=== PATIENT | female | born 1955 | race Caucasian/White ===

== ENCOUNTER 2020-09-30 09:18 | Emergency (ER) | payer MEDICARE, OTHER ==
[2020-09-30] MEDS ORDERED: diphenhydrAMINE 50 MG/ML 1 ML VIAL IVP STA (09:35)
[2020-09-30] MEDS ORDERED: METOCLOPRAMIDE 5 MG/ML 2 ML VIAL IVP STA (09:35)
[2020-09-30] MEDS ORDERED: HYDROmorphone 0.5 MG/0.5 ML SYRINGE IVP STA (09:35)
[2020-09-30] MEDS ORDERED: SODIUM CHLORIDE 0.9% 500 ML 500 ML IV STA (09:35)
[2020-09-30] MEDS ORDERED: SODIUM CHLORIDE 0.9% 1,000 ML IV STA (09:35)
[2020-09-30] MEDS ORDERED: FAMOTIDINE 20 MG/2 ML VIAL IV STA (09:36)
[2020-09-30 10:01] LABS: Basophils # (A) 0.1 k/uL (0-0.2); Basophils % (A) 1 %; Eosinophils # (A) 0.1 k/uL (0-0.7); Eosinophils % (A) 1 %; HGB 18.5 gm/dL (11.4-16.0); Lymphocytes # (A) 1.2 k/uL (1.0-4.8); Lymphocytes % (A) 14 %; MCH 31.5 pg (25.0-35.0); MCV 95.7 fL (80.0-100.0); Mean Platelet Volume 10.1; Monocytes # (A) 0.2 k/uL (0-1.0); Monocytes % (A) 2 %; Neutrophils # (A) 7.2 k/uL (1.3-7.7); Neutrophils % (A) 82 %; Platelet Count 187 k/uL (150-450); RBC 5.88 m/uL (3.80-5.40); RDW 13.9 % (11.5-15.5); WBC 8.8 k/uL (3.8-10.6)
[2020-09-30 10:06] LABS: HCT 56.2 % (34.0-46.0)
[2020-09-30 10:07] LABS: ALT 24 U/L (4-34); AST 29 U/L (14-36); African American GFR (CKD) >90 (>60 ml/min/1.73 sqM); Albumin 4.7 g/dL (3.5-5.0); Alkaline Phosphatase 75 U/L (38-126); Amylase 57 U/L (30-110); Anion Gap 10 mmol/L; Blood Urea Nitrogen 10 mg/dL (7-17); Calcium 9.7 mg/dL (8.4-10.2); Carbon Dioxide 23 mmol/L (22-30); Chloride 107 mmol/L (98-107); Glucose 147 mg/dL (74-99); Lipase 92 U/L (23-300); Non-African American GFR(CKD) >90 (>60 ml/min/1.73 sqM); Potassium 4.5 mmol/L (3.5-5.1); Sodium 140 mmol/L (137-145); Total Bilirubin 0.7 mg/dL (0.2-1.3); Total Protein 8.2 g/dL (6.3-8.2)
--- NOTE | 2020-09-30 11:08 | ED ---
Nausea/Vomiting/Diarrhea HPI - General Chief complaint: Nausea/Vomiting/Diarrhea Stated complaint: Vomiting/SOB/Adb pain Time Seen by Provider: 09/30/20 09:27 Source: patient, RN notes reviewed Mode of arrival: wheelchair Limitations: no limitations - History of Present Illness Initial comments: This a 64-year-old female presents emergency Department chief complaint abdominal pain, nausea vomiting. Patient states that she started vomiting throughout the night. Patient has this recurrent and states that she's had multiple evaluations including several CAT scans yearly, EGDs. Patient states that she's been diagnosed with gastritis she takes omeprazole and Carafate. She states occasionally does accept she has come emergency department. Denies any diarrhea constipation she has epigastric pain no chest pain she states she has chronic shortness of breath secondary to COPD, heavy smoking but does not have any increasing symptoms. No headache no dizziness. Patient has a back pain. - Related Data Home Medications Medication Instructions Recorded Confirmed Albuterol Sulfate [Ventolin HFA] 1 - 2 puff INHALATION RT-Q6H PRN 09/30/20 09/30/20 Digoxin 250 mcg PO DAILY 09/30/20 09/30/20 Ipratropium/Albuterol Sulfate 1 puff INHALATION RT-QID 09/30/20 09/30/20 [Combivent Respimat Inhaler] Mirtazapine [Remeron] 30 mg PO DAILY 09/30/20 09/30/20 Pantoprazole Sodium [Protonix] 40 mg PO DAILY 09/30/20 09/30/20 Rosuvastatin [Crestor] 20 mg PO DAILY 09/30/20 09/30/20 busPIRone HCl [Buspar] 10 mg PO TID 09/30/20 09/30/20 Previous Rx's Medication Instructions Recorded Ondansetron Odt [Zofran Odt] 4 mg PO Q8HR PRN #10 tab 09/30/20 Pantoprazole [Protonix] 40 mg PO DAILY #14 tablet. 09/30/20 Sucralfate [Carafate] 1 gm PO BID #28 tablet 09/30/20 Allergies Allergy/AdvReac Type Severity Reaction Status Date / Time amoxicillin [From Augmentin] Allergy Unknown Verified 09/30/20 10:18 clavulanic acid Allergy Unknown Verified 09/30/20 10:18 [From Augmentin] codeine Allergy Unknown Verified 09/30/20 10:18 Tetracyclines Allergy Unknown Verified 09/30/20 10:18 Review of Systems ROS Statement: Those systems with pertinent positive or pertinent negative responses have been documented in the HPI. ROS Other: All systems not noted in ROS Statement are negative. Past Medical History Past Medical History: Atrial Fibrillation, COPD History of Any Multi-Drug Resistant Organisms: None Reported Past Psychological History: No Psychological Hx Reported Smoking Status: Former smoker Past Alcohol Use History: None Reported Past Drug Use History: None Reported General Exam Limitations: no limitations General appearance: alert, in no apparent distress Head exam: Present: atraumatic, normocephalic, normal inspection Eye exam: Present: normal appearance, PERRL, EOMI. Absent: scleral icterus, conjunctival injection, periorbital swelling ENT exam: Present: normal exam, normal oropharynx, mucous membranes moist Neck exam: Present: normal inspection, full ROM. Absent: tenderness, meningismus, lymphadenopathy Respiratory exam: Present: normal lung sounds bilaterally. Absent: respiratory distress, wheezes, rales, rhonchi, stridor Cardiovascular Exam: Present: regular rate, normal rhythm, normal heart sounds. Absent: systolic murmur, diastolic murmur, rubs, gallop, clicks GI/Abdominal exam: Present: soft, tenderness (Moderate epigastric), normal bowel sounds. Absent: distended, guarding, rebound, rigid Back exam: Absent: CVA tenderness (R), CVA tenderness (L) Neurological exam: Present: alert, oriented X3 Skin exam: Present: warm, dry, intact, normal color. Absent: rash Course Vital Signs 09/30/20 09/30/20 09/30/20 09:21 11:15 11:57 Temperature 98.1 F 98.3 F Pulse Rate 66 68 72 Respiratory 20 18 18 Rate Blood Pressure 207/90 191/115 199/96 O2 Sat by Pulse 95 96 95 Oximetry 09/30/20 12:21 Temperature Pulse Rate 70 Respiratory 18 Rate Blood Pressure 190/100 O2 Sat by Pulse 95 Oximetry - Reevaluation(s) Reevaluation #1: 09/30/20 11:10 Patient reevaluated resting comfortably, nausea has improved she states she still has some mild stomach burning. Medical Decision Making - Medical Decision Making Patient reevaluated updated and results patient was sleeping in the room upon arrival. Patient states her nausea is improved. She has minimal abdominal d iscomfort which is nontender to palpation. Patient's labs reviewed no significant abnormality. Patient was well hydrated and given antiemetics. Patient has chronic stomach and gastritis issues. Patient discharged in stable condition return parameters were discussed. - Lab Data Result diagrams: 09/30/20 09:39 09/30/20 09:39 Lab Results 09/30/20 09/30/20 09/30/20 Range/Units 09:39 09:39 09:39 WBC 8.8 (3.8-10.6) k/uL RBC 5.88 H (3.80-5.40) m/uL Hgb 18.5 H (11.4-16.0) gm/dL Hct 56.2 H (34.0-46.0) % MCV 95.7 (80.0-100.0) fL MCH 31.5 (25.0-35.0) pg MCHC 33.0 (31.0-37.0) g/dL RDW 13.9 (11.5-15.5) % Plt Count 187 (150-450) k/uL MPV 10.1 Neutrophils % 82 % Lymphocytes % 14 % Monocytes % 2 % Eosinophils % 1 % Basophils % 1 % Neutrophils # 7.2 (1.3-7.7) k/uL Lymphocytes # 1.2 (1.0-4.8) k/uL Monocytes # 0.2 (0-1.0) k/uL Eosinophils # 0.1 (0-0.7) k/uL Basophils # 0.1 (0-0.2) k/uL Sodium 140 (137-145) mmol/L Potassium 4.5 (3.5-5.1) mmol/L Chloride 107 (98-107) mmol/L Carbon Dioxide 23 (22-30) mmol/L Anion Gap 10 mmol/L BUN 10 (7-17) mg/dL Creatinine 0.62 (0.52-1.04) mg/dL Est GFR (CKD-EPI)AfAm >90 (>60 ml/min/1.73 sqM) Est GFR (CKD-EPI)NonAf >90 (>60 ml/min/1.73 sqM) Glucose 147 H (74-99) mg/dL Plasma Lactic Acid Lalo 2.4 H* (0.7-2.0) mmol/L Calcium 9.7 (8.4-10.2) mg/dL Total Bilirubin 0.7 (0.2-1.3) mg/dL AST 29 (14-36) U/L ALT 24 (4-34) U/L Alkaline Phosphatase 75 (38-126) U/L Troponin I (0.000-0.034) ng/mL Total Protein 8.2 (6.3-8.2) g/dL Albumin 4.7 (3.5-5.0) g/dL Amylase 57 (30-110) U/L Lipase 92 (23-300) U/L 09/30/20 Range/Units 09:39 WBC (3.8-10.6) k/uL RBC (3.80-5.40) m/uL Hgb (11.4-16.0) gm/dL Hct (34.0-46.0) % MCV (80.0-100.0) fL MCH (25.0-35.0) pg MCHC (31.0-37.0) g/dL RDW (11.5-15.5) % Plt Count (150-450) k/uL MPV Neutrophils % % Lymphocytes % % Monocytes % % Eosinophils % % Basophils % % Neutrophils # (1.3-7.7) k/uL Lymphocytes # (1.0-4.8) k/uL Monocytes # (0-1.0) k/uL Eosinophils # (0-0.7) k/uL Basophils # (0-0.2) k/uL Sodium (137-145) mmol/L Potassium (3.5-5.1) mmol/L Chloride (98-107) mmol/L Carbon Dioxide (22-30) mmol/L Anion Gap mmol/L BUN (7-17) mg/dL Creatinine (0.52-1.04) mg/dL Est GFR (CKD-EPI)AfAm (>60 ml/min/1.73 sqM) Est GFR (CKD-EPI)NonAf (>60 ml/min/1.73 sqM) Glucose (74-99) mg/dL Plasma Lactic Acid Lalo (0.7-2.0) mmol/L Calcium (8.4-10.2) mg/dL Total Bilirubin (0.2-1.3) mg/dL AST (14-36) U/L ALT (4-34) U/L Alkaline Phosphatase (38-126) U/L Troponin I <0.012 (0.000-0.034) ng/mL Total Protein (6.3-8.2) g/dL Albumin (3.5-5.0) g/dL Amylase (30-110) U/L Lipase (23-300) U/L Disposition Clinical Impression: Abdominal pain, Nausea & vomiting Disposition: HOME SELF-CARE Condition: Stable Instructions (If sedation given, give patient instructions): Acute Nausea and Vomiting (ED) Additional Instructions: Please return to the Emergency Department if symptoms worsen or any other concerns. Prescriptions: Sucralfate [Carafate] 1 gm PO BID #28 tablet Pantoprazole [Protonix] 40 mg PO DAILY #14 tablet. Ondansetron Odt [Zofran Odt] 4 mg PO Q8HR PRN #10 tab PRN Reason: Nausea Is patient prescribed a controlled substance at d/c from ED?: No Referrals: Nonstaff,Physician [Primary Care Provider] - 1-2 days Time of Disposition: 12:34
[2020-09-30] MEDS ORDERED: MAG HYDROX/AL HYDROX/SIMETH 30 ML, HYOSCYAMINE ELIXIR 10 ML PO STA ×2 (11:10)
[2020-09-30 11:18] VITALS: RESP 18; TEMP 98.3
[2020-09-30] MEDS ORDERED: SODIUM CHLORIDE 0.9% 500 ML 500 ML IV ONE (12:11)
[2020-09-30] MEDS ORDERED: ONDANSETRON 4 MG/2 ML VIAL IVP STA (12:11)
[2020-09-30] MEDS ORDERED: hydrALAZINE HCL 20 MG/ML 1 ML VIAL IVP STA (12:11)
[2020-09-30 12:39] VITALS: BP 144/100; PULSE 80
== END 2020-09-30 12:38 | disposition home or self-care (01) ==
LOC: EC 09:18
DX: R11.2 Nausea with vomiting, unspecified (principal); R10.9 Unspecified abdominal pain; J44.9 Chronic obstructive pulmonary disease, unspecified; I48.91 Unspecified atrial fibrillation; Z79.51 Long term (current) use of inhaled steroids; Z79.899 Other long term (current) drug therapy; Z87.891 Personal history of nicotine dependence; Z88.0 Allergy status to penicillin; Z88.1 Allergy status to other antibiotic agents; Z88.5 Allergy status to narcotic agent
CPT/HCPCS: 93005; 80053; 82150; 83605; 83690; 84484; 85025; 99284; 96374; 96375 ×5; 96361 ×3; J0360; J1200; J2765; J2405; J1170

== ENCOUNTER 2021-09-05 14:17 | Inpatient (IN) | payer MEDICARE, OTHER ==
[2021-09-05] MEDS ORDERED: IPRATROPIUM-ALBUTEROL 3 ML NEB INHALATION STA (15:15)
[2021-09-05] MEDS ORDERED: methylPREDNISolone SOD SUCCI 125 MG/2 ML VIAL IV STA (15:15)
[2021-09-05] MEDS ORDERED: MORPHINE SULFATE 4 MG/ML SYRINGE IVP STA (15:16)
--- NOTE | 2021-09-05 15:17 | ED ---
SOB HPI - General Chief Complaint: Shortness of Breath Stated Complaint: CINDY Time Seen by Provider: 09/05/21 15:07 Source: patient Mode of arrival: wheelchair Limitations: no limitations - History of Present Illness Initial Comments: 65-year-old female test with history of COPD not on home O2, A. fib presents to the emergency room with reported shortness of breath. States has been getting worse over the past 2 days. States she does not live in the area. She lives with her son and any time she comes to visit she thinks a temperature change exacerbates her breathing. She has been using her nebulizer and inhaler as directed without any improvement in her symptoms. Admits that she has "lung pain". Patient denies a history of coronary disease or congestive heart failure. No lower extremity edema. No history of DVT or PE. No calf pain or swelling. Denies fevers. Does admit to a chronic cough which has not been any worse. Patient is not vaccinated against Covid. Denies any known exposures. Does not see a wedding planning internship. Normally is seen in the emergency department for times per year to receive antibiotics and steroids. She has never been on life support. No other alleviating, precipitating modifying factors - Related Data Home Medications Medication Instructions Recorded Confirmed Albuterol Sulfate [Ventolin HFA] 1 - 2 puff INHALATION RT-Q6H PRN 09/30/20 09/30/20 Digoxin 250 mcg PO DAILY 09/30/20 09/30/20 Ipratropium/Albuterol Sulfate 1 puff INHALATION RT-QID 09/30/20 09/30/20 [Combivent Respimat Inhaler] Mirtazapine [Remeron] 30 mg PO DAILY 09/30/20 09/30/20 Pantoprazole Sodium [Protonix] 40 mg PO DAILY 09/30/20 09/30/20 Rosuvastatin [Crestor] 20 mg PO DAILY 09/30/20 09/30/20 busPIRone HCl [Buspar] 10 mg PO TID 09/30/20 09/30/20 Previous Rx's Medication Instructions Recorded Ondansetron Odt [Zofran Odt] 4 mg PO Q8HR PRN #10 tab 09/30/20 Pantoprazole [Protonix] 40 mg PO DAILY #14 tablet 09/30/20 Sucralfate [Carafate] 1 gm PO BID #28 tablet 09/30/20 Allergies Allergy/AdvReac Type Severity Reaction Status Date / Time amoxicillin [From Augmentin] Allergy Unknown Verified 09/05/21 14:56 clavulanic acid Allergy Unknown Verified 09/05/21 14:56 [From Augmentin] codeine Allergy Unknown Verified 09/05/21 14:56 Tetracyclines Allergy Unknown Verified 09/05/21 14:56 Review of Systems ROS Statement: Those systems with pertinent positive or pertinent negative responses have been documented in the HPI. ROS Other: All systems not noted in ROS Statement are negative. Past Medical History Past Medical History: Atrial Fibrillation, COPD History of Any Multi-Drug Resistant Organisms: None Reported Past Surgical History: Ablation Past Psychological History: No Psychological Hx Reported Smoking Status: Former smoker Past Alcohol Use History: None Reported Past Drug Use History: None Reported General Exam Limitations: no limitations Course Vital Signs 09/05/21 09/05/21 09/05/21 14:51 15:15 15:41 Temperature 98.6 F Pulse Rate 102 H Respiratory 24 Rate Blood Pressure 113/71 O2 Sat by Pulse 92 L 97 95 Oximetry 09/05/21 09/05/21 09/05/21 16:00 16:30 16:50 Temperature Pulse Rate 81 80 Respiratory 20 20 Rate Blood Pressure 106/80 114/77 O2 Sat by Pulse 91 L 91 L 96 Oximetry Medical Decision Making - Medical Decision Making On arrival patient is placed into room 2. A thorough history and physical exam was performed. Patient is saturating 91% on 2 L. Laboratory studies are conduct and patient is swabbed for Kovic. Laboratory studies reviewed. Sodium 132. Covid is detected. Chest x-ray demonstrates pulmonary mild interstitial filtrate. I did go back into the room to reevaluate the patient and she now has oxygen saturations of 88% on 2 L. She needs to be bumped up to 4 L. As she is now requiring oxygen I did recommend admission for which the patient did agree to. She'll be admitted to [facility]. She remained in stable condition awaiting a bed on the floor - Lab Data Result diagrams: 09/05/21 15:38 09/05/21 15:38 Lab Results 09/05/21 09/05/21 09/05/21 Range/Units 15:38 15:38 15:38 WBC 6.2 (3.8-10.6) k/uL RBC 6.03 H (3.80-5.40) m/uL Hgb 18.6 H (11.4-16.0) gm/dL Hct 53.8 H (34.0-46.0) % MCV 89.2 (80.0-100.0) fL MCH 30.9 (25.0-35.0) pg MCHC 34.6 (31.0-37.0) g/dL RDW 16.0 H (11.5-15.5) % Plt Count 112 L (150-450) k/uL MPV 9.1 Neutrophils % 73 % Lymphocytes % 18 % Monocytes % 7 % Eosinophils % 0 % Basophils % 1 % Neutrophils # 4.6 (1.3-7.7) k/uL Lymphocytes # 1.1 (1.0-4.8) k/uL Monocytes # 0.4 (0-1.0) k/uL Eosinophils # 0.0 (0-0.7) k/uL Basophils # 0.0 (0-0.2) k/uL PT 11.4 (9.0-12.0) sec INR 1.1 (<1.2) APTT 28.9 (22.0-30.0) sec Sodium 132 L (137-145) mmol/L Potassium 4.9 (3.5-5.1) mmol/L Chloride 103 (98-107) mmol/L Carbon Dioxide 21 L (22-30) mmol/L Anion Gap 8 mmol/L BUN 14 (7-17) mg/dL Creatinine 0.79 (0.52-1.04) mg/dL Est GFR (CKD-EPI)AfAm >90 (>60 ml/min/1.73 sqM) Est GFR (CKD-EPI)NonAf 80 (>60 ml/min/1.73 sqM) Glucose 111 H (74-99) mg/dL Plasma Lactic Acid Lalo (0.7-2.0) mmol/L Calcium 8.3 L (8.4-10.2) mg/dL Total Bilirubin 0.9 (0.2-1.3) mg/dL AST 75 H (14-36) U/L ALT 30 (4-34) U/L Alkaline Phosphatase 75 (38-126) U/L Troponin I (0.000-0.034) ng/mL NT-Pro-B Natriuret Pep pg/mL Total Protein 7.2 (6.3-8.2) g/dL Albumin 3.6 (3.5-5.0) g/dL Coronavirus (PCR) (Not Detectd) 09/05/21 09/05/21 09/05/21 Range/Units 15:38 15:38 15:38 WBC (3.8-10.6) k/uL RBC (3.80-5.40) m/uL Hgb (11.4-16.0) gm/dL Hct (34.0-46.0) % MCV (80.0-100.0) fL MCH (25.0-35.0) pg MCHC (31.0-37.0) g/dL RDW (11.5-15.5) % Plt Count (150-450) k/uL MPV Neutrophils % % Lymphocytes % % Monocytes % % Eosinophils % % Basophils % % Neutrophils # (1.3-7.7) k/uL Lymphocytes # (1.0-4.8) k/uL Monocytes # (0-1.0) k/uL Eosinophils # (0-0.7) k/uL Basophils # (0-0.2) k/uL PT (9.0-12.0) sec INR (<1.2) APTT (22.0-30.0) sec Sodium (137-145) mmol/L Potassium (3.5-5.1) mmol/L Chloride (98-107) mmol/L Carbon Dioxide (22-30) mmol/L Anion Gap mmol/L BUN (7-17) mg/dL Creatinine (0.52-1.04) mg/dL Est GFR (CKD-EPI)AfAm (>60 ml/min/1.73 sqM) Est GFR (CKD-EPI)NonAf (>60 ml/min/1.73 sqM) Glucose (74-99) mg/dL Plasma Lactic Acid Lalo 1.0 (0.7-2.0) mmol/L Calcium (8.4-10.2) mg/dL Total Bilirubin (0.2-1.3) mg/dL AST (14-36) U/L ALT (4-34) U/L Alkaline Phosphatase (38-126) U/L Troponin I 0.022 (0.000-0.034) ng/mL NT-Pro-B Natriuret Pep 1120 pg/mL Total Protein (6.3-8.2) g/dL Albumin (3.5-5.0) g/dL Coronavirus (PCR) (Not Detectd) 09/05/21 Range/Units 15:38 WBC (3.8-10.6) k/uL RBC (3.80-5.40) m/uL Hgb (11.4-16.0) gm/dL Hct (34.0-46.0) % MCV (80.0-100.0) fL MCH (25.0-35.0) pg MCHC (31.0-37.0) g/dL RDW (11.5-15.5) % Plt Count (150-450) k/uL MPV Neutrophils % % Lymphocytes % % Monocytes % % Eosinophils % % Basophils % % Neutrophils # (1.3-7.7) k/uL Lymphocytes # (1.0-4.8) k/uL Monocytes # (0-1.0) k/uL Eosinophils # (0-0.7) k/uL Basophils # (0-0.2) k/uL PT (9.0-12.0) sec INR (<1.2) APTT (22.0-30.0) sec Sodium (137-145) mmol/L Potassium (3.5-5.1) mmol/L Chloride (98-107) mmol/L Carbon Dioxide (22-30) mmol/L Anion Gap mmol/L BUN (7-17) mg/dL Creatinine (0.52-1.04) mg/dL Est GFR (CKD-EPI)AfAm (>60 ml/min/1.73 sqM) Est GFR (CKD-EPI)NonAf (>60 ml/min/1.73 sqM) Glucose (74-99) mg/dL Plasma Lactic Acid Lalo (0.7-2.0) mmol/L Calcium (8.4-10.2) mg/dL Total Bilirubin (0.2-1.3) mg/dL AST (14-36) U/L ALT (4-34) U/L Alkaline Phosphatase (38-126) U/L Troponin I (0.000-0.034) ng/mL NT-Pro-B Natriuret Pep pg/mL Total Protein (6.3-8.2) g/dL Albumin (3.5-5.0) g/dL Coronavirus (PCR) Detected A (Not Detectd) - EKG Data EKG Comments: EKG demonstrates A. fib with a rate of 85. QRS 74. QTC of 447. No acute ST segment elevations or depressions concerning for ischemic changes Disposition Clinical Impression: COVID-19, Hypoxia, History of COPD Disposition: ADMITTED IP TO THIS HOSP Condition: Stable Is patient prescribed a controlled substance at d/c from ED?: No Referrals: Nonstaff,Physician [Primary Care Provider] - 1-2 days Decision to Admit Reason: Admit from EC Decision Date: 09/05/21 Decision Time: 17:31
[2021-09-05 15:48] LABS: Basophils % (A) 1 %; Eosinophils % (A) 0 %; HCT 53.8 % (34.0-46.0); HGB 18.6 gm/dL (11.4-16.0); Lymphocytes # (A) 1.1 k/uL (1.0-4.8); Lymphocytes % (A) 18 %; MCH 30.9 pg (25.0-35.0); MCHC 34.6 g/dL (31.0-37.0); MCV 89.2 fL (80.0-100.0); Mean Platelet Volume 9.1; Monocytes # (A) 0.4 k/uL (0-1.0); Monocytes % (A) 7 %; Neutrophils # (A) 4.6 k/uL (1.3-7.7); Neutrophils % (A) 73 %; Platelet Count 112 k/uL (150-450); RBC 6.03 m/uL (3.80-5.40); WBC 6.2 k/uL (3.8-10.6)
[2021-09-05 15:58] LABS: INR 1.1 (<1.2); Prothrombin Time 11.4 sec (9.0-12.0)
--- NOTE | 2021-09-05 15:58 | XR ---
EXAMINATION TYPE: XR chest 2V DATE OF EXAM: 09/05/2021 COMPARISON: NONE HISTORY: Short of breath TECHNIQUE: 2 views FINDINGS: There is coarsening of the interstitial markings in both lungs. Heart is enlarged. There is no pleural effusion. Bony thorax is intact. IMPRESSION: There is some pulmonary mild interstitial infiltrate. Mild cardiomegaly. Mild heart failure not entirely excluded.
[2021-09-05 15:59] LABS: ALT 30 U/L (4-34); AST 75 U/L (14-36); African American GFR (CKD) >90 (>60 ml/min/1.73 sqM); Albumin 3.6 g/dL (3.5-5.0); Alkaline Phosphatase 75 U/L (38-126); Anion Gap 8 mmol/L; Blood Urea Nitrogen 14 mg/dL (7-17); Calcium 8.3 mg/dL (8.4-10.2); Carbon Dioxide 21 mmol/L (22-30); Chloride 103 mmol/L (98-107); Glucose 111 mg/dL (74-99); Non-African American GFR(CKD) 80 (>60 ml/min/1.73 sqM); Partial Thromboplastin Time 28.9 sec (22.0-30.0); Potassium 4.9 mmol/L (3.5-5.1); Sodium 132 mmol/L (137-145); Total Bilirubin 0.9 mg/dL (0.2-1.3); Total Protein 7.2 g/dL (6.3-8.2)
[2021-09-05] MEDS ORDERED: ALBUTEROL HFA INHALER INHALATION STA (16:17)
[2021-09-05] MEDS ORDERED: DEXAMETHASONE SOD PHOSPHATE 10 MG/ML 1 ML VIAL IVP SCH (17:30)
[2021-09-05] MEDS ORDERED: NALOXONE 0.4 MG/ML 1 ML VIAL IV PRN (17:32)
[2021-09-05] MEDS ORDERED: IBUPROFEN 400 MG TAB PO PRN (17:32)
[2021-09-05] MEDS: SODIUM CHLORIDE 0.9% 1,000 ML IV SCH (18:41)
[2021-09-05] MEDS ORDERED: ENOXAPARIN 40 MG/0.4 ML SYRINGE SQ SCH (23:00)
[2021-09-05 23:41] LABS: C Reactive Protein 1.6 mg/dL (<1.0)
--- NOTE | 2021-09-06 01:22 | P.HPIM ---
History of Present Illness H&P Date: 09/05/21 Chief Complaint: Shortness of breath 65-year-old female with COPD not on home oxygen, atrial fibrillation on anticoagulation Patient comes in with 4 day history of increased shortness of breath and feeling sick fatigue and tired she's been sleeping all day for the past 4 days. She has a chronic cough that has not changed she is not vaccinated against Covid she denies any sore throat runny nose she denies any nausea vomiting diarrhea denies any fevers or chills However she's been having increased and worsening back pain with stiffness. She has recently traveled from [facility] to celebrate Thanksgiving with her son and she denies any sick contacts is being any hospital recently. She denies any GI bleeding denies any abdominal pain denies any chest pain. Today home her pulse ox showed her oxygen level is 88-89% on room air for which she decided come the hospital for evaluation In the ED patient tested positive for Covid chest x-ray showed pulmonary mild interstitial infiltrate Lactic acid was normal hemoglobin elevated at 8.6 secondary polycythemia due to heavy smoking patient claims that she quit smoking couple weeks ago Review of Systems Pertinent positives as noted in HPI. All other systems were reviewed and are negative Past Medical History Past Medical History: Atrial Fibrillation, COPD History of Any Multi-Drug Resistant Organisms: None Reported Past Surgical History: Ablation Past Psychological History: No Psychological Hx Reported Smoking Status: Former smoker Past Alcohol Use History: None Reported Past Drug Use History: None Reported - Past Family History Father Family Medical History: Myocardial Infarction ([place]), Rheumatoid Arthritis ([place]) Medications and Allergies Home Medications Medication Instructions Recorded Confirmed Type Albuterol Sulfate [Ventolin HFA] 2 puff INHALATION RT-Q6H PRN 09/30/20 09/05/21 History Ondansetron Odt [Zofran Odt] 4 mg PO Q8HR PRN #10 tab 09/30/20 09/05/21 Rx Pantoprazole Sodium [Protonix] 40 mg PO DAILY 09/30/20 09/05/21 History busPIRone HCl [Buspar] 10 mg PO TID 09/30/20 09/05/21 History Amiodarone [Cordarone] 200 mg PO DAILY 09/05/21 09/05/21 History Apixaban [Eliquis] 5 mg PO BID 09/05/21 09/05/21 History Diltiazem HCl [Diltiazem HCl 24Hr 120 mg PO DAILY 09/05/21 09/05/21 History ER (CD)] Ipratropium [place] [Atrovent Hfa] 2 puff INHALATION RT-QID 09/05/21 09/05/21 History Metoprolol Tartrate [Lopressor] 100 mg PO BID 09/05/21 09/05/21 History Mirtazapine [Remeron] 45 mg PO HS 09/05/21 09/05/21 History Allergies Allergy/AdvReac Type Severity Reaction Status Date / Time amoxicillin [From Augmentin] Allergy Unknown Verified 09/05/21 18:10 clavulanic acid Allergy Unknown Verified 09/05/21 18:10 [From Augmentin] codeine Allergy Unknown Verified 09/05/21 18:10 Tetracyclines Allergy Unknown Verified 09/05/21 18:10 Physical Exam Vitals: Vital Signs Temp Pulse Resp BP Pulse Ox 09/05/21 18:41 77 24 129/90 95 09/05/21 16:50 96 09/05/21 16:30 80 20 114/77 91 L 09/05/21 16:00 81 20 106/80 91 L 09/05/21 15:41 95 09/05/21 15:15 97 09/05/21 14:51 98.6 F 102 H 24 113/71 92 L Intake and Output 09/05/21 09/05/21 09/05/21 06:59 14:59 22:59 Other: Weight 102.058 kg Constitutional: No acute distress, conversant, pleasant Eyes: Anicteric sclerae, moist conjunctiva, Pupils equal round reactive to light ENMT: NC/AT Oropharynx clear, no erythema, or exudates Neck: Supple, FROM, no masses, or JVD No carotid bruits No thyromegaly Lungs: Clear to auscultation Clear to percussion Normal respiratory effort, no accessory muscle use Cardiovascular: Heart irregular No murmurs, gallops, or rubs No peripheral edema Abdominal: Soft Nontender, no guarding, rebound or rigidity Abdomen moving with respiration Normoactive bowel sounds No hepatomegaly, No splenomegaly No palpable mass No abdominal wall hernia noted Skin: Normal temperature, tone, texture, turgor No induration No subcutaneous nodules No rash, lesions No ulcers Extremities: No digital cyanosis No clubbing Pedal pulses intact and symmetrical Radial pulses intact and symmetrical No calf tenderness Psychiatric: Alert and oriented to person, place and time Appropriate affect fair judgement Neuro Muscles Strength 5/5 in all 4 extremities Sensation to light touch grossly present throughout Cranial nerves II-XII grossly intact No focal sensory deficits Lymphatics: no palpable cervical or supraclavicular , or inguinal lymph nodes Results CBC & Chem 7: 09/05/21 15:38 09/05/21 15:38 Labs: Abnormal Lab Results - Last 24 Hours (Table) 09/05/21 09/05/21 09/05/21 Range/Units 15:38 15:38 15:38 RBC 6.03 H (3.80-5.40) m/uL Hgb 18.6 H (11.4-16.0) gm/dL Hct 53.8 H (34.0-46.0) % RDW 16.0 H (11.5-15.5) % Plt Count 112 L (150-450) k/uL Sodium 132 L (137-145) mmol/L Carbon Dioxide 21 L (22-30) mmol/L Glucose 111 H (74-99) mg/dL Calcium 8.3 L (8.4-10.2) mg/dL AST 75 H (14-36) U/L Coronavirus (PCR) Detected A (Not Detectd) Assessment and Plan Assessment: Acute hypoxic respiratory failure Covid pneumonitis Supplemental oxygen as needed Dexamethasone Supportive care Tylenol for fever Motrin for pain Monitor Vital signs Cardiac monitoring COPD Continue DuoNeb's and inhalers Counseled and oxygen as needed Check fibrinogen and d-dimer, troponin proBNP, CRP, LDH, procalcitonin for prognostic evaluation A. fib on anticoagulation Resume Eliquis Patient is full code DVT prophylaxis currently on Eliquis for A. fib Anticipated length of stay more than 2 midnights
[2021-09-06] MEDS: APIXABAN 5 MG TAB PO SCH ×3 (01:23→19:31)
[2021-09-06] MEDS: METOPROLOL TARTRATE 50 MG TAB PO SCH ×3 (01:24→19:30)
[2021-09-06] MEDS: busPIRone HCl 10 MG TAB PO SCH ×4 (01:24→19:31)
[2021-09-06] MEDS: MIRTAZAPINE 45 MG TABLET PO SCH ×2 (01:24→19:31)
[2021-09-06] MEDS: ACETAMINOPHEN TAB 325 MG TAB PO PRN ×2 (01:28→19:30)
[2021-09-06] MEDS: ALBUTEROL HFA INHALER INHALATION PRN ×2 (08:54→12:25)
[2021-09-06] MEDS: DEXAMETHASONE SOD PHOSPHATE 10 MG/ML 1 ML VIAL IV SCH (08:56)
[2021-09-06] MEDS: AMIODARONE 200 MG TAB PO SCH (08:57)
[2021-09-06] MEDS: DILTIAZEM CD 120 MG CAP.ER.24H PO SCH (08:58)
[2021-09-06] MEDS: PANTOPRAZOLE 40 MG TABLET PO SCH (08:58)
[2021-09-06] MEDS: SODIUM CHLORIDE 0.9% 1,000 ML IV SCH ×2 (09:05→23:51)
[2021-09-06 11:51] LABS: African American GFR (CKD) 68.5 (60.0-200.0); Anion Gap 12.5 mmol/L (10.00-18.00); BUN/Creat Ratio 25.1 Ratio (12.00-20.00); Blood Urea Nitrogen 25.1 mg/dL (9.0-27.0); Calcium 8.2 mg/dL (8.7-10.3); Carbon Dioxide 19.5 mmol/L (20.0-27.5); Non-African American GFR(CKD) 59.1 (60.0-200.0); Potassium 5.2 mmol/L (3.5-5.5)
[2021-09-06 11:56] LABS: Basophils # (A) 0.01 X 10*3/uL (0.00-0.10); Basophils % (A) 0.3 %; Eosinophils # (A) 0 X 10*3/uL (0.04-0.35); Eosinophils % (A) 0 %; HCT 51.9 % (37.2-46.3); HGB 16.5 g/dL (12.0-15.0); Lymphocytes # (A) 0.88 X 10*3/uL (0.90-5.00); Lymphocytes % (A) 23.3 %; MCH 28.7 pg (27.0-32.0); MCHC 31.8 g/dL (32.0-37.0); MCV 90.4 fL (80.0-97.0); Mean Platelet Volume 11.6 fL (9.5-12.2); Monocytes # (A) 0.28 X 10*3/uL (0.20-1.00); Monocytes % (A) 7.4 %; Neutrophils # (A) 2.57 X 10*3/uL (1.80-7.70); Neutrophils % (A) 67.9 %; Platelet Count 102 X 10*3/uL (140-440); RBC 5.74 X 10*6/uL (4.10-5.20); WBC 3.78 X 10*3/uL (4.50-10.00)
--- NOTE | 2021-09-06 13:39 | P.PN ---
Subjective Progress Note Date: 09/06/21 Pt reports improvement in breathing today. Objective - Vital Signs Vital signs: Vital Signs Temp 98 F 09/06/21 10:12 Pulse 78 09/06/21 10:12 Resp 18 09/06/21 10:12 BP 120/79 09/06/21 10:12 Pulse Ox 91 L 09/06/21 10:12 Intake & Output 09/05/21 09/06/21 09/06/21 18:59 06:59 18:59 Weight 102.058 kg 102.058 kg - Exam Gen: awake, alert HEENT: normocephalic, atraumatic, good hearing acuity, moist mucous membranes Resp: good air exchange, breathing comfortably with no accessory muscle use CVS: good distal perfusion x 4, GI: soft, NTTP, ND : no SPT, no CVAT, mcclure catheter not present MSK: no pitting edema, no clubbing Neuro: non-focal, moving all extremities Psych: cooperative, euthymic mood - Labs CBC & Chem 7: 09/06/21 07:29 09/06/21 07:29 Labs: Abnormal Lab Results - Last 24 Hours (Table) 09/05/21 09/05/21 09/05/21 Range/Units 15:38 15:38 15:38 WBC (4.50-10.00) X 10*3/uL RBC 6.03 H (3.80-5.40) m/uL Hgb 18.6 H (11.4-16.0) gm/dL Hct 53.8 H (34.0-46.0) % MCHC (32.0-37.0) g/dL RDW 16.0 H (11.5-15.5) % Plt Count 112 L (150-450) k/uL Plt Count Comment Lymphocytes # (0.90-5.00) X 10*3/uL Eosinophils # (0.04-0.35) X 10*3/uL Sodium 132 L (137-145) mmol/L Carbon Dioxide 21 L (22-30) mmol/L Est GFR (CKD-EPI)NonAf (60.0-200.0) BUN/Creatinine Ratio (12.00-20.00) Ratio Glucose 111 H (74-99) mg/dL Calcium 8.3 L (8.4-10.2) mg/dL AST 75 H (14-36) U/L Lactate Dehydrogenase (313-618) U/L C-Reactive Protein (<1.0) mg/dL Coronavirus (PCR) Detected A (Not Detectd) 09/05/21 09/06/21 09/06/21 Range/Units 22:42 07:29 07:29 WBC 3.78 L (4.50-10.00) X 10*3/uL RBC 5.74 H (3.80-5.40) m/uL Hgb 16.5 H (11.4-16.0) gm/dL Hct 51.9 H (34.0-46.0) % MCHC 31.8 L (32.0-37.0) g/dL RDW 16.0 H (11.5-15.5) % Plt Count 102 L (150-450) k/uL Plt Count Comment DECREASED A Lymphocytes # 0.88 L (0.90-5.00) X 10*3/uL Eosinophils # 0 L (0.04-0.35) X 10*3/uL Sodium 130 L (137-145) mmol/L Carbon Dioxide 19.5 L (22-30) mmol/L Est GFR (CKD-EPI)NonAf 59.1 L (60.0-200.0) BUN/Creatinine Ratio 25.10 H (12.00-20.00) Ratio Glucose 157 H (74-99) mg/dL Calcium 8.2 L (8.4-10.2) mg/dL AST (14-36) U/L Lactate Dehydrogenase 793 H (313-618) U/L C-Reactive Protein 1.6 H (<1.0) mg/dL Coronavirus (PCR) (Not Detectd) Assessment and Plan Assessment: Acute hypoxic respiratory failure Covid pneumonitis Supplemental oxygen as needed Dexamethasone Supportive care Tylenol for fever Motrin for pain Monitor Vital signs Cardiac monitoring Pulmonary consult COPD Continue DuoNeb's and inhalers Counseled and oxygen as needed Check fibrinogen and d-dimer, troponin proBNP, CRP, LDH, procalcitonin for prognostic evaluation Paroxysmal A. fib on anticoagulation Resume Eliquis Patient is full code DVT prophylaxis currently on Eliquis for A. fib Anticipated length of stay more than 2 midnights
[2021-09-07] MEDS: APIXABAN 5 MG TAB PO SCH ×2 (08:51→20:33)
[2021-09-07] MEDS: busPIRone HCl 10 MG TAB PO SCH ×3 (08:51→20:33)
[2021-09-07] MEDS: AMIODARONE 200 MG TAB PO SCH (08:51)
[2021-09-07] MEDS: DILTIAZEM CD 120 MG CAP.ER.24H PO SCH (08:51)
[2021-09-07] MEDS: METOPROLOL TARTRATE 50 MG TAB PO SCH ×2 (08:52→20:32)
[2021-09-07] MEDS: PANTOPRAZOLE 40 MG TABLET PO SCH (08:52)
[2021-09-07] MEDS: DEXAMETHASONE SOD PHOSPHATE 10 MG/ML 1 ML VIAL IV SCH (08:53)
[2021-09-07] MEDS: SODIUM CHLORIDE 0.9% 1,000 ML IV SCH (08:54)
[2021-09-07] MEDS: ALBUTEROL HFA INHALER INHALATION PRN (09:54)
[2021-09-07 11:24] LABS: LDH 316 U/L (120-246)
[2021-09-07 11:29] LABS: ALT 34 U/L (8-44); AST 48 U/L (13-35); African American GFR (CKD) 105.4 (60.0-200.0); Albumin 3.5 g/dL (3.8-4.9); Alkaline Phosphatase 72 U/L (41-126); BUN/Creat Ratio 27.29 Ratio (12.00-20.00); Bilirubin, Conjugated <0.20 mg/dL (0.20-0.40); Blood Urea Nitrogen 19.1 mg/dL (9.0-27.0); C Reactive Protein <0.30 mg/dL (0.00-0.80); Calcium 8.3 mg/dL (8.7-10.3); Carbon Dioxide 20.2 mmol/L (20.0-27.5); Chloride 105 mmol/L (96-109); Globulin 2.7 g/dL (1.6-3.3); Glucose 136 mg/dL (70-110); Non-African American GFR(CKD) 90.9 (60.0-200.0); Potassium 5.1 mmol/L (3.5-5.5); Sodium 137 mmol/L (135-145); Total Protein 6.2 g/dL (6.2-8.2)
--- NOTE | 2021-09-07 11:41 | P.PN ---
Subjective Progress Note Date: 09/07/21 Pt reports some pain with urination today. But her breathing is improved. Now on 2L NC from 4L. Objective - Vital Signs Vital signs: Vital Signs Temp 97.5 F L 09/07/21 06:00 Pulse 110 H 09/07/21 06:00 Resp 20 09/07/21 02:00 BP 130/90 09/07/21 06:00 Pulse Ox 93 L 09/07/21 08:00 Intake & Output 09/06/21 09/07/21 09/07/21 18:59 06:59 18:59 Intake Total 1440 Balance 1440 Intake: Intake, IV Titration 900 Amount Sodium Chloride 0.9% 1, 900 000 ml @ 75 mls/hr IV . [id number] QING Rx#:[id number] Oral 540 Other: # Voids 2 2 - Exam Gen: awake, alert HEENT: normocephalic, atraumatic, good hearing acuity, moist mucous membranes Resp: good air exchange, breathing comfortably with no accessory muscle use CVS: good distal perfusion x 4, GI: soft, NTTP, ND : no SPT, no CVAT, mcclure catheter not present MSK: no pitting edema, no clubbing Neuro: non-focal, moving all extremities Psych: cooperative, euthymic mood - Labs CBC & Chem 7: 09/06/21 07:29 09/07/21 07:00 Labs: Abnormal Lab Results - Last 24 Hours (Table) 09/06/21 09/06/21 09/07/21 Range/Units 07: 07: 07:00 WBC 3.78 L (4.50-10.00) X 10*3/uL RBC 5.74 H (4.10-5.20) X 10*6/uL Hgb 16.5 H (12.0-15.0) g/dL Hct 51.9 H (37.2-46.3) % MCHC 31.8 L (32.0-37.0) g/dL RDW 16.0 H (11.5-14.5) % Plt Count 102 L (140-440) X 10*3/uL Plt Count Comment DECREASED A Lymphocytes # 0.88 L (0.90-5.00) X 10*3/uL Eosinophils # 0 L (0.04-0.35) X 10*3/uL Sodium 130 L (135-145) mmol/L Carbon Dioxide 19.5 L (20.0-27.5) mmol/L Est GFR (CKD-EPI)NonAf 59.1 L (60.0-200.0) BUN/Creatinine Ratio 25.10 H 27.29 H (12.00-20.00) Ratio Glucose 157 H 136 H (70-110) mg/dL Calcium 8.2 L 8.3 L (8.7-10.3) mg/dL Conjugated Bilirubin <0.20 L (0.20-0.40) mg/dL AST 48 H (13-35) U/L Lactate Dehydrogenase 316 H (120-246) U/L Albumin 3.5 L (3.8-4.9) g/dL Albumin/Globulin Ratio 1.30 L (1.60-3.17) g/dL Assessment and Plan Assessment: Acute hypoxic respiratory failure Covid pneumonitis Supplemental oxygen as needed Dexamethasone Supportive care Tylenol for fever Motrin for pain Monitor Vital signs Cardiac monitoring Pulmonary consult COPD Continue DuoNeb's and inhalers Counseled and oxygen as needed Check fibrinogen and d-dimer, troponin proBNP, CRP, LDH, procalcitonin for prognostic evaluation Paroxysmal A. fib on anticoagulation Resume Eliquis Patient is full code DVT prophylaxis currently on Eliquis for A. fib Anticipated length of stay more than 2 midnights
[2021-09-07 12:54] LABS: Basophils # (A) 0.01 X 10*3/uL (0.00-0.10); Basophils % (A) 0.1 %; Eosinophils # (A) 0 X 10*3/uL (0.04-0.35); Eosinophils % (A) 0 %; HCT 50.6 % (37.2-46.3); HGB 15.8 g/dL (12.0-15.0); Lymphocytes # (A) 0.88 X 10*3/uL (0.90-5.00); Lymphocytes % (A) 8.7 %; MCHC 31.2 g/dL (32.0-37.0); MCV 92.8 fL (80.0-97.0); Mean Platelet Volume 11.6 fL (9.5-12.2); Monocytes # (A) 0.49 X 10*3/uL (0.20-1.00); Monocytes % (A) 4.9 %; Neutrophils # (A) 8.63 X 10*3/uL (1.80-7.70); Neutrophils % (A) 85.6 %; Platelet Count 94 X 10*3/uL (140-440); RBC 5.45 X 10*6/uL (4.10-5.20); RDW 16.3 % (11.5-14.5); WBC 10.08 X 10*3/uL (4.50-10.00)
--- NOTE | 2021-09-07 14:19 | P.CNPUL ---
History of Present Illness Consult date: 09/07/21 Reason for consult: pneumonia History of present illness: 65-year-old female patient with known history of COPD presented to the hospital because of worsening shortness of breath and feeling sick and fatigued and the patient was diagnosed having COVID 19 related pneumonia. Noted the patient was not vaccinated for COVID 19. She did not have any other symptoms. Denies having any nausea or vomiting or diarrhea. Denies having any fever or chills. The patient was seen in the emergency department. The chest x-ray showed bilateral pulmonary infiltrates. The patient was afebrile. The patient was hemodynamically stable. Pulse ox was low on the 90% and the patient was placed initially on 4 L and currently she is on 2liters by nasal cannula. The patient's d-dimer is at 0.36, the patient had a LDH level of 316 which is lower compared to 793 at a time of admission and the CRP level is less than 0.3. The patient currently is on Decadron 6 mg IV every 24 hours. The patient is also on long-term medical condition with Eliquis nontender the patient has history of atrial fibrillation. The patient remains on amiodarone and metoprolol regarding her atrial fibrillation. Review of Systems Constitutional: Reports as per HPI, Reports fatigue, Reports weakness Eyes: denies as per HPI, denies blurred vision, denies bulging eye, denies decreased vision, denies diplopia, denies discharge, denies dry eye, denies irritation, denies itching, denies pain, denies photophobia, denies loss of peripheral vision, denies loss of vision, denies tunnel vision/blind spots Ears: deny: decreased hearing, ear discharge, earache, tinnitus Ears, nose, mouth and throat: Reports as per HPI Breasts: absent: as per HPI, change in shape, gynecomastia, masses, nipple discharge, pain, skin changes, swelling Cardiovascular: Reports decreased exercise tolerance, Reports dyspnea on exertion Respiratory: Reports cough, Reports dyspnea Gastrointestinal: Reports as per HPI Genitourinary: Reports as per HPI Menstruation: Reports as per HPI Musculoskeletal: Reports as per HPI Musculoskeletal: absent: ankle pain, ankle stiffness, ankle swelling, as per HPI, elbow pain, elbow stiffness, elbow swelling, foot pain, foot stiffness, foot swelling, hand pain, hand stiffness, hand swelling, hip pain, hip stiffness, hip swelling, knee pain, knee stiffness, knee swelling, shoulder pain, shoulder stiffness, shoulder swelling, wrist pain, wrist stiffness, wrist swelling Neurological: Reports as per HPI Psychiatric: Reports as per HPI Endocrine: Reports as per HPI Hematologic/Lymphatic: Reports as per HPI Allergic/Immunologic: Reports as per HPI Past Medical History Past Medical History: Atrial Fibrillation, COPD History of Any Multi-Drug Resistant Organisms: None Reported Past Surgical History: Ablation Additional Past Surgical History / Comment(s): 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 Past Psychological History: No Psychological Hx Reported Smoking Status: Former smoker Past Alcohol Use History: None Reported Past Drug Use History: None Reported - Past Family History Father Family Medical History: Myocardial Infarction (MD), Rheumatoid Arthritis (RA) Medications and Allergies Home Medications Medication Instructions Recorded Confirmed Type Albuterol Sulfate [Ventolin HFA] 2 puff INHALATION RT-Q6H PRN 09/30/20 09/05/21 History Ondansetron Odt [Zofran Odt] 4 mg PO Q8HR PRN #10 tab 09/30/20 09/05/21 Rx Pantoprazole Sodium [Protonix] 40 mg PO DAILY 09/30/20 09/05/21 History busPIRone HCl [Buspar] 10 mg PO TID 09/30/20 09/05/21 History Amiodarone [Cordarone] 200 mg PO DAILY 09/05/21 09/05/21 History Apixaban [Eliquis] 5 mg PO BID 09/05/21 09/05/21 History Diltiazem HCl [Diltiazem HCl 24Hr 120 mg PO DAILY 09/05/21 09/05/21 History ER (CD)] Ipratropium [place] [Atrovent Hfa] 2 puff INHALATION RT-QID 09/05/21 09/05/21 History Metoprolol Tartrate [Lopressor] 100 mg PO BID 09/05/21 09/05/21 History Mirtazapine [Remeron] 45 mg PO HS 09/05/21 09/05/21 History Allergies Allergy/AdvReac Type Severity Reaction Status Date / Time amoxicillin [From Augmentin] Allergy Unknown Verified 09/05/21 18:10 clavulanic acid Allergy Unknown Verified 09/05/21 18:10 [From Augmentin] codeine Allergy Unknown Verified 09/05/21 18:10 Tetracyclines Allergy Unknown Verified 09/05/21 18:10 Physical Exam Vitals: Vital Signs Temp Pulse Resp BP Pulse Ox 09/07/21 08:00 93 L 09/07/21 06:00 97.5 F L 110 H 130/90 92 L 09/07/21 02:00 97.7 F 86 20 132/89 95 09/06/21 22:05 98.0 F 52 L 19 98/64 96 09/06/21 20:00 81 17 09/06/21 17:41 98.2 F 81 17 119/74 91 L 09/06/21 14:37 97.9 F 76 18 119/75 90 L Intake and Output 09/06/21 09/07/21 09/07/21 22:59 06:59 14:59 Intake Total 1440 Balance 1440 Intake: Intake, IV Titration 900 Amount Sodium Chloride 0.9% 1, 900 000 ml @ 75 mls/hr IV . [id number] QING Rx#:[id number] Oral 540 Other: # Voids 2 2 Gen. appearance the patient is calm and the patient is currently on 2 L by nasal cannula, breathing is nonlabored Head exam was generally normal. There was no scleral icterus or corneal arcus. Mucous membranes were moist. Neck was supple and without jugular venous distension, thyromegaly, or carotid bruits. Carotids were easily palpable bilaterally. There was no adenopathy. Lungs sounds are diminished in the lung bases bilaterally along with some limited bibasilar crackles Cardiac exam revealed the PMI to be normally situated and sized. The rhythm was regular and no extrasystoles were noted during several minutes of auscultation. The first and second heart sounds were normal and physiologic splitting of the second heart sound was noted. There were no murmurs, rubs, clicks, or gallops. Abdominal exam revealed normal bowel sounds. The abdomen was soft, non-tender, and without masses, organomegaly, or appreciable enlargement of the abdominal aorta. Examination of the extremities revealed easily palpable radial, femoral and pedal pulses. There was no cyanosis, clubbing or edema. Examination of the skin revealed no evidence of significant rashes, suspicious appearing nevi or other concerning lesions. Neurologically, the patient is awake and alert and the patient does not have any focal neurological deficit. Cranial nerves are essentially intact. Results - Laboratory Findings CBC and BMP: 09/07/21 07:00 09/07/21 07:00 PT/INR, D-dimer PT 11.4 sec (9.0-12.0) 09/05/21 15:38 INR 1.1 (<1.2) 09/05/21 15:38 D-Dimer 0.36 mg/L FEU (<0.60) 09/07/21 07:00 Abnormal lab findings: Abnormal Labs 09/05/21 09/05/21 09/05/21 15:38 15:38 15:38 WBC RBC 6.03 H Hgb 18.6 H Hct 53.8 H MCHC RDW 16.0 H Plt Count 112 L Plt Count Comment Immature Gran # Neutrophils # Lymphocytes # Eosinophils # Sodium 132 L Carbon Dioxide 21 L Est GFR (CKD-EPI)NonAf BUN/Creatinine Ratio Glucose 111 H Calcium 8.3 L Conjugated Bilirubin AST 75 H Lactate Dehydrogenase C-Reactive Protein Albumin Albumin/Globulin Ratio Coronavirus (PCR) Detected A 09/05/21 09/06/21 09/06/21 22:42 07:29 07:29 WBC 3.78 L RBC 5.74 H Hgb 16.5 H Hct 51.9 H MCHC 31.8 L RDW 16.0 H Plt Count 102 L Plt Count Comment DECREASED A Immature Gran # Neutrophils # Lymphocytes # 0.88 L Eosinophils # 0 L Sodium 130 L Carbon Dioxide 19.5 L Est GFR (CKD-EPI)NonAf 59.1 L BUN/Creatinine Ratio 25.10 H Glucose 157 H Calcium 8.2 L Conjugated Bilirubin AST Lactate Dehydrogenase 793 H C-Reactive Protein 1.6 H Albumin Albumin/Globulin Ratio Coronavirus (PCR) 09/07/21 09/07/21 07:00 07:00 WBC 10.08 H RBC 5.45 H Hgb 15.8 H Hct 50.6 H MCHC 31.2 L RDW 16.3 H Plt Count 94 L Plt Count Comment DECREASED A Immature Gran # 0.07 H Neutrophils # 8.63 H Lymphocytes # 0.88 L Eosinophils # 0 L Sodium Carbon Dioxide Est GFR (CKD-EPI)NonAf BUN/Creatinine Ratio 27.29 H Glucose 136 H Calcium 8.3 L Conjugated Bilirubin <0.20 L AST 48 H Lactate Dehydrogenase 316 H C-Reactive Protein Albumin 3.5 L Albumin/Globulin Ratio 1.30 L Coronavirus (PCR) - Diagnostic Findings Chest x-ray: image reviewed Assessment and Plan Plan: 1 Acute COVID 19 related pneumonia.The patient has limited by the pulmonary infiltrates and the patient is slight hypoxia with mild elevation of the inflammatory markers which is essentially responding to steroids. 2 acute hypoxic respiratory failure currently on 2 L of oxygen by nasal cannula 3 COPD and the patient has been stable at 19 any form of oxygen on outpatient basis 4 history of chronic atrial fibrillation, controlled rate and the patient is on long-term articulation with Eliquis Plan The patient is clinically improving. The patient is currently on Decadron this will be continued. Continue long-term and to coagulation with Eliquis regarding her chronic atrial fibrillation. Inflammatory markers are all improving. She is currently on 2 L about 2 by nasal cannula. I'll patient medication skin be ordered resume. Clinically the patient is feeling well. It is likely that the patient can be potentially discharged home within next 24 hours either on room air oxygen or oxygen at 2 L. Continue same treatment for now. The patient lives in [facility] and the patient would like to get home as soon as possible. She is quite unhappy with her stay at [facility].
[2021-09-07] MEDS ORDERED: bisacodyL 5 MG TABLET.DR PO STA (20:00)
[2021-09-07 20:04] LABS: Appearance,Urine Clear (Clear); Bilirubin,Urine Negative (Negative); Blood,Urine Negative (Negative); Color,Urine Yellow; Glucose,Urine (UA) Negative (Negative); Ketones,Urine Negative (Negative); Leukocyte Esterase,Urine Negative (Negative); Nitrite,Urine Negative (Negative); PH, Urine 5.5 (5.0-8.0); Protein,Urine Negative (Negative); Specific Gravity,Urine 1.013 (1.001-1.035); Urobilinogen,Urine <2.0 mg/dL (<2.0)
[2021-09-07] MEDS: MIRTAZAPINE 45 MG TABLET PO SCH (20:33)
[2021-09-08] MEDS: SODIUM CHLORIDE 0.9% 1,000 ML IV SCH ×2 (01:19→07:54)
[2021-09-08] MEDS: METOPROLOL TARTRATE 50 MG TAB PO SCH ×2 (07:51→20:13)
[2021-09-08] MEDS: DEXAMETHASONE SOD PHOSPHATE 10 MG/ML 1 ML VIAL IV SCH (07:51)
[2021-09-08] MEDS: AMIODARONE 200 MG TAB PO SCH (07:52)
[2021-09-08] MEDS: PANTOPRAZOLE 40 MG TABLET PO SCH (07:52)
[2021-09-08] MEDS: APIXABAN 5 MG TAB PO SCH ×2 (07:52→20:13)
[2021-09-08] MEDS: busPIRone HCl 10 MG TAB PO SCH ×3 (07:53→20:13)
[2021-09-08] MEDS: DILTIAZEM CD 120 MG CAP.ER.24H PO SCH (07:53)
[2021-09-08 09:11] LABS: Basophils # (A) 0.03 X 10*3/uL (0.00-0.10); Basophils % (A) 0.3 %; Eosinophils # (A) 0 X 10*3/uL (0.04-0.35); Eosinophils % (A) 0 %; HCT 50.1 % (37.2-46.3); HGB 15.8 g/dL (12.0-15.0); Lymphocytes # (A) 0.85 X 10*3/uL (0.90-5.00); Lymphocytes % (A) 7.7 %; MCH 29.2 pg (27.0-32.0); MCHC 31.5 g/dL (32.0-37.0); MCV 92.6 fL (80.0-97.0); Mean Platelet Volume 12.1 fL (9.5-12.2); Monocytes # (A) 0.65 X 10*3/uL (0.20-1.00); Monocytes % (A) 5.9 %; Neutrophils # (A) 9.37 X 10*3/uL (1.80-7.70); Platelet Count 102 X 10*3/uL (140-440); RBC 5.41 X 10*6/uL (4.10-5.20); RDW 16.3 % (11.5-14.5); WBC 11.02 X 10*3/uL (4.50-10.00)
[2021-09-08] MEDS: FUROSEMIDE 10 MG/ML 4 ML VIAL IV SCH (09:26)
[2021-09-08] MEDS: ALBUTEROL HFA INHALER INHALATION SCH ×4 (09:42→21:37)
--- NOTE | 2021-09-08 09:52 | XR ---
EXAMINATION TYPE: XR chest 1V portable DATE OF EXAM: 09/08/2021 COMPARISON: 09/05/2021 INDICATION: Dyspnea TECHNIQUE: Single frontal view of the chest is obtained. FINDINGS: The heart size is borderline in size. The pulmonary vasculature is prominent. Diffuse increased lung markings are present. A right lower lobe streaky opacities present. Correlate for some atelectasis. IMPRESSION: 1. Medical consideration for congestive heart failure and pulmonary edema is recommended. Other etiol ogies including atypical pneumonia should be considered. Follow-up is recommended
[2021-09-08 09:55] LABS: ALT 39 U/L (8-44); AST 41 U/L (13-35); African American GFR (CKD) 105.4 (60.0-200.0); Albumin 3.6 g/dL (3.8-4.9); Albumin/Globulin Ratio 1.29 (1.60-3.17); Alkaline Phosphatase 70 U/L (41-126); BUN/Creat Ratio 24.14 Ratio (12.00-20.00); Bilirubin, Conjugated 0.21 mg/dL (0.20-0.40); Bilirubin,Unconjugated 0.19 mg/dL (0.20-1.00); Blood Urea Nitrogen 16.9 mg/dL (9.0-27.0); Calcium 8.6 mg/dL (8.7-10.3); Carbon Dioxide 22.9 mmol/L (20.0-27.5); Chloride 105 mmol/L (96-109); Globulin 2.8 g/dL (1.6-3.3); Glucose 124 mg/dL (70-110); LDH 285 U/L (120-246); Non-African American GFR(CKD) 90.9 (60.0-200.0); Potassium 4.8 mmol/L (3.5-5.5); Sodium 137 mmol/L (135-145); Total Protein 6.4 g/dL (6.2-8.2)
[2021-09-08 09:56] LABS: Magnesium 2.1 mg/dL (1.5-2.4)
[2021-09-08] MEDS: AZITHROMYCIN 500 MG TAB PO SCH (10:13)
[2021-09-08 10:22] LABS: C Reactive Protein <0.30 mg/dL (0.00-0.80)
[2021-09-08] MEDS: TIOTROPIUM 2.5 MCG INHALER INHALATION SCH (12:45)
--- NOTE | 2021-09-08 13:44 | P.PN ---
Subjective Progress Note Date: 09/08/21 65-year-old female patient with known history of COPD presented to the hospital because of worsening shortness of breath and feeling sick and fatigued and the patient was diagnosed having COVID 19 related pneumonia. Noted the patient was not vaccinated for COVID 19. She did not have any other symptoms. Denies having any nausea or vomiting or diarrhea. Denies having any fever or chills. The patient was seen in the emergency department. The chest x-ray showed bilateral pulmonary infiltrates. The patient was afebrile. The patient was hemodynamically stable. Pulse ox was low on the 90% and the patient was placed initially on 4 L and currently she is on 2liters by nasal cannula. The patient 's d-dimer is at 0.36, the patient had a LDH level of 316 which is lower compared to 793 at a time of admission and the CRP level is less than 0.3. The patient currently is on Decadron 6 mg IV every 24 hours. The patient is also on long-term medical condition with Eliquis nontender the patient has history of atrial fibrillation. The patient remains on amiodarone and metoprolol regarding her atrial fib. On 09/08/2021, the patient is being seen for a follow-up. I saw her in consultation yesterday for COVID 19 related pneumonia. The patient was being treated with Decadron. Noted the inflammatory markers were essentially normal including LDH and CRP. She is also known to have chronic atrial fibrillation. She lives in the [facility] and she was visiting in [place] with her son when she ended up being sick and she was hospitalized. Overnight, the patient had some worsening shortness of breath. Her oxygen level dropped and the patient had to be placed on oxygen at 3.5 L. Her current pulse ox in the order of 93-94%. The chest x-ray done at that time showed CHF/pulmonary edema and for that reason, the patient was given Lasix at a dose of 40 mg IV push which helped her with diuresis. She is resting comfortably at this point in time. Echocardiogram is to be completed. Meanwhile, the patient underwent further blood work that showed a d-dimer of 0.6 and the LDH level was down to 285 and a CRP level is less than 0.3. Hemoglobin is at 15.8 with a white cell count of 11 .2. For now, the patient is on Lasix 40 mg IV every 24 hours she remains on Decadron. She felt better. She is a 92% pulse ox with oxygen flow of 3 L. Objective - Vital Signs Vital signs: Vital Signs Temp 98.1 F 09/08/21 05:54 Pulse 72 09/08/21 05:54 Resp 19 09/08/21 07:52 BP 143/89 09/08/21 05:54 Pulse Ox 92 L 09/08/21 05:54 Intake & Output 09/07/21 09/08/21 09/08/21 18:59 06:59 18:59 Output Total 800 Balance -800 Output: Urine 800 Other: # Voids 1 1 - Exam Gen. appearance the patient is calm and the patient is currently on 3.5 L by nasal cannula, breathing is nonlabored Head exam was generally normal. There was no scleral icterus or corneal arcus. Mucous membranes were moist. Neck was supple and without jugular venous distension, thyromegaly, or carotid bruits. Carotids were easily palpable bilaterally. There was no adenopathy. Lungs sounds are diminished in the lung bases bilaterally along with some limited bibasilar crackles Cardiac exam revealed the PMI to be normally situated and sized. The rhythm was regular and no extrasystoles were noted during several minutes of auscultation. The first and second heart sounds were normal and physiologic splitting of the second heart sound was noted. There were no murmurs, rubs, clicks, or gallops. Abdominal exam revealed normal bowel sounds. The abdomen was soft, non-tender, and without masses, organomegaly, or appreciable enlargement of the abdominal aorta. Examination of the extremities revealed easily palpable radial, femoral and pedal pulses. There was no cyanosis, clubbing or edema. Examination of the skin revealed no evidence of significant rashes, suspicious appearing nevi or other concerning lesions. Neurologically, the patient is awake and alert and the patient does not have any focal neurological deficit. Cranial nerves are essentially intact. - Labs CBC & Chem 7: 09/08/21 06:22 09/08/21 06:22 Labs: Abnormal Lab Results - Last 24 Hours (Table) 09/08/21 09/08/21 09/08/21 Range/Units 06:22 06:22 06:22 WBC 11.02 H (4.50-10.00) X 10*3/uL RBC 5.41 H (4.10-5.20) X 10*6/uL Hgb 15.8 H (12.0-15.0) g/dL Hct 50.1 H (37.2-46.3) % MCHC 31.5 L (32.0-37.0) g/dL RDW 16.3 H (11.5-14.5) % Plt Count 102 L (140-440) X 10*3/uL Immature Gran # 0.12 H (0.00-0.04) X 10*3/uL Neutrophils # 9.37 H (1.80-7.70) X 10*3/uL Lymphocytes # 0.85 L (0.90-5.00) X 10*3/uL Eosinophils # 0 L (0.04-0.35) X 10*3/uL D-Dimer 0.61 H (<0.60) mg/L FEU Anion Gap 9.10 L (10.00-18.00) mmol/L BUN/Creatinine Ratio 24.14 H (12.00-20.00) Ratio Glucose 124 H (70-110) mg/dL Calcium 8.6 L (8.7-10.3) mg/dL Unconjugated Bilirubin 0.19 L (0.20-1.00) mg/dL AST 41 H (13-35) U/L Lactate Dehydrogenase 285 H (120-246) U/L Albumin 3.6 L (3.8-4.9) g/dL Albumin/Globulin Ratio 1.29 L (1.60-3.17) g/dL Assessment and Plan Plan: 1 Acute COVID 19 related pneumonia.The patient has limited by the pulmonary infiltrates and the patient is slight hypoxia with mild elevation of the inflammatory markers which is essentially responding to steroids. Noted the patient had some interval worsening in her shortness of breath and hypoxemia. The chest x-ray showed bilateral interstitial pulmonary infiltrates. Clinically related to CHF. Progression of COVID 19 cannot be completely ruled out. Bacterial pneumonia is highly unlikely. 2 acute hypoxic respiratory failure currently on 2 L of oxygen by nasal cannula 3 COPD and the patient has been stable at 19 any form of oxygen on outpatient basis 4 history of chronic atrial fibrillation, controlled rate and the patient is on long-term articulation with Eliquis Plan Agree on Lasix on a daily basis Proceed with an echocardiogram to assess LV function Continue Decadron Continue anticoagulation with Eliquis Wean FiO2 to maintain a saturation above 90% currently down to 2 L Not ready for discharge yet. We'll continue to follow. I do not see any need for antibiotics at this point in time.
--- NOTE | 2021-09-08 14:42 | P.PN ---
Subjective Progress Note Date: 09/08/21 Pt reported significant distress from dyspnea last night, specifically when she laid down to sleep. She requested an increase in O2 rate and was increased from 2 to 3.5. This morning she appears to be in moderate distress from dyspnea, and relayed that she has previously had issues with heart failure; she is also a chronic a fib patient. I placed an order for BNP, Echo, repeat CXR, and 40mg IV lasix daily. Also scheduled her inhaler therapies, and started azithromycin 500mg daily. CXR confirmed volume overload, and patient improved with lasix. Awaiting remainder of work up, but anticipate that if she remains stable on 2L or less by tomorrow she may go home with or without home O2 depending on need. This was discussed with patient and her son. Objective - Vital Signs Vital signs: Vital Signs Temp 98.1 F 09/08/21 05:54 Pulse 72 09/08/21 05:54 Resp 19 09/08/21 07:52 BP 143/89 09/08/21 05:54 Pulse Ox 92 L 09/08/21 05:54 Intake & Output 09/07/21 09/08/21 09/08/21 18:59 06:59 18:59 Output Total 800 Balance -800 Output: Urine 800 Other: # Voids 1 1 - Exam Gen: awake, alert HEENT: normocephalic, atraumatic, good hearing acuity, moist mucous membranes Resp: good air exchange, breathing comfortably with no accessory muscle use CVS: good distal perfusion x 4, GI: soft, NTTP, ND : no SPT, no CVAT, mcclure catheter not present MSK: no pitting edema, no clubbing Neuro: non-focal, moving all extremities Psych: cooperative, euthymic mood - Labs CBC & Chem 7: 09/08/21 06:22 09/08/21 06:22 Labs: Abnormal Lab Results - Last 24 Hours (Table) 09/08/21 09/08/21 09/08/21 Range/Units 06:22 06:22 06:22 WBC 11.02 H (4.50-10.00) X 10*3/uL RBC 5.41 H (4.10-5.20) X 10*6/uL Hgb 15.8 H (12.0-15.0) g/dL Hct 50.1 H (37.2-46.3) % MCHC 31.5 L (32.0-37.0) g/dL RDW 16.3 H (11.5-14.5) % Plt Count 102 L (140-440) X 10*3/uL Immature Gran # 0.12 H (0.00-0.04) X 10*3/uL Neutrophils # 9.37 H (1.80-7.70) X 10*3/uL Lymphocytes # 0.85 L (0.90-5.00) X 10*3/uL Eosinophils # 0 L (0.04-0.35) X 10*3/uL D-Dimer 0.61 H (<0.60) mg/L FEU Anion Gap 9.10 L (10.00-18.00) mmol/L BUN/Creatinine Ratio 24.14 H (12.00-20.00) Ratio Glucose 124 H (70-110) mg/dL Calcium 8.6 L (8.7-10.3) mg/dL Unconjugated Bilirubin 0.19 L (0.20-1.00) mg/dL AST 41 H (13-35) U/L Lactate Dehydrogenase 285 H (120-246) U/L Albumin 3.6 L (3.8-4.9) g/dL Albumin/Globulin Ratio 1.29 L (1.60-3.17) g/dL Assessment and Plan Assessment: Acute hypoxic respiratory failure Covid pneumonitis Supplemental oxygen as needed Dexamethasone Supportive care Tylenol for fever Motrin for pain Monitor Vital signs Cardiac monitoring Pulmonary consult Acute Diastolic Heart Failure -echo pending -lasix 40mg IV daily -BNP pending -CXR c/w volume overload COPD Continue inhalers q4h ATC Azithromycin 500mg day 10/14 Counseled and oxygen as needed Check fibrinogen and d-dimer, troponin proBNP, CRP, LDH, procalcitonin for prognostic evaluation Permanent A. fib on anticoagulation Resume Eliquis Patient is full code DVT prophylaxis currently on Eliquis for A. fib Anticipated length of stay more than 2 midnights
[2021-09-08] MEDS ORDERED: ALPRAZolam 0.5 MG TAB PO STA (19:29)
[2021-09-08] MEDS: MIRTAZAPINE 45 MG TABLET PO SCH (20:49)
[2021-09-09] MEDS: ALBUTEROL HFA INHALER INHALATION SCH ×5 (00:48→16:20)
[2021-09-09] MEDS: SODIUM CHLORIDE 0.9% 1,000 ML IV SCH (05:47)
[2021-09-09] MEDS: APIXABAN 5 MG TAB PO SCH (08:05)
[2021-09-09] MEDS: AMIODARONE 200 MG TAB PO SCH (08:05)
[2021-09-09] MEDS: METOPROLOL TARTRATE 50 MG TAB PO SCH (08:05)
[2021-09-09] MEDS: AZITHROMYCIN 500 MG TAB PO SCH (08:06)
[2021-09-09] MEDS: DEXAMETHASONE SOD PHOSPHATE 10 MG/ML 1 ML VIAL IV SCH (08:06)
[2021-09-09] MEDS: TIOTROPIUM 2.5 MCG INHALER INHALATION SCH (08:06)
[2021-09-09] MEDS: busPIRone HCl 10 MG TAB PO SCH (08:06)
[2021-09-09] MEDS: PANTOPRAZOLE 40 MG TABLET PO SCH (08:06)
[2021-09-09] MEDS: DILTIAZEM CD 120 MG CAP.ER.24H PO SCH (08:07)
[2021-09-09] MEDS: FUROSEMIDE 10 MG/ML 4 ML VIAL IV SCH (08:07)
[2021-09-09 11:45] LABS: Basophils # (A) 0.03 X 10*3/uL (0.00-0.10); Basophils % (A) 0.3 %; Eosinophils # (A) 0 X 10*3/uL (0.04-0.35); Eosinophils % (A) 0 %; HCT 51.6 % (37.2-46.3); HGB 16.1 g/dL (12.0-15.0); MCH 28.8 pg (27.0-32.0); MCHC 31.2 g/dL (32.0-37.0); MCV 92.3 fL (80.0-97.0); Mean Platelet Volume 12.3 fL (9.5-12.2); Monocytes # (A) 0.76 X 10*3/uL (0.20-1.00); Monocytes % (A) 6.9 %; Neutrophils # (A) 9.11 X 10*3/uL (1.80-7.70); Neutrophils % (A) 82.3 %; Platelet Count 116 X 10*3/uL (140-440); RBC 5.59 X 10*6/uL (4.10-5.20); RDW 15.9 % (11.5-14.5); WBC 11.07 X 10*3/uL (4.50-10.00)
[2021-09-09 12:16] LABS: ALT 47 U/L (8-44); AST 41 U/L (13-35); African American GFR (CKD) 89.7 (60.0-200.0); Albumin 3.9 g/dL (3.8-4.9); Alkaline Phosphatase 73 U/L (41-126); BUN/Creat Ratio 23.88 Ratio (12.00-20.00); Bilirubin, Conjugated 0.26 mg/dL (0.20-0.40); Bilirubin,Unconjugated 0.34 mg/dL (0.20-1.00); Blood Urea Nitrogen 19.1 mg/dL (9.0-27.0); Calcium 9.1 mg/dL (8.7-10.3); Carbon Dioxide 22.2 mmol/L (20.0-27.5); Chloride 102 mmol/L (96-109); Glucose 111 mg/dL (70-110); LDH 324 U/L (120-246); Magnesium 2.2 mg/dL (1.5-2.4); Non-African American GFR(CKD) 77.4 (60.0-200.0); Potassium 4.9 mmol/L (3.5-5.5); Sodium 138 mmol/L (135-145); Total Protein 6.9 g/dL (6.2-8.2)
[2021-09-09 13:00] LABS: C Reactive Protein <0.30 mg/dL (0.00-0.80)
--- NOTE | 2021-09-09 13:04 | P.CRDCN ---
History of Present Illness History of present illness: HISTORY OF PRESENTING ILLNESS This is a pleasant 65-year-old female past medical history significant for chronic persistent-fibrillation on Eliquis, COPD, GERD. She follows in the office with Dr. Joseph Vera and Dr. Martini and Dr. Kennedy is her Equipment Engineer all out of [place]. We have been asked to see in consultation for "arrhythmias". Patient presents emergency department 09/05/2021 with shortness of breath for 2 days. Also with symptoms of tiredness, not sleeping well, cough, rhinnorrhea. Patient was found to be Covid 19 positive, patient is not vaccinated against COVID. She states she follows closely with her logging tractor operator and formulation chemist. She is scheduled to undergo an ablation this month with Dr. Kennedy. She denies history of VT, CAD, diabetes. EKG revealed atrial fibrillation with controlled ventricular rates, no significant ST-T wave abnormalities. Telemetry reviewed patient in atrial fibrillation with controlled ventricular rates, she appears to have episodes of aberrancy, leon phenomenon. Echocardiogram performed which revealed an EF of 4045%, RV is moderately enlarged, mild mitral regurgitation, mild tricuspid regurgitation. Patient currently maintained on amiodarone 200 mg daily, Eliquis 5 mg twice a day, Cardizem 120 mg daily, IV Lasix 40mg daily, metoprolol tartrate 100 mg twice a day and IV Fluids at 75cc/hr. REVIEW OF SYSTEMS At the time of my exam: CONSTITUTIONAL: Denies fever or chills. +Generalized fatigue. CARDIOVASCULAR: +shortness of breath Denies chest pain, orthopnea, PND or palpitations. RESPIRATORY: + cough. GASTROINTESTINAL: Denies abdominal pain, diarrhea, constipation, nausea or vomiting. MUSCULOSKELETAL: Denies myalgias. NEUROLOGIC: Denies numbness, tingling, headacbe or weakness. ENDOCRINE: Denies fatigue, weight change, polydipsia or polyurina. GENITOURINARY: Denies burning, hematuria or urgency with micturation. HEMATOLOGIC: Denies history of anemia or bleeding. PHYSICAL EXAMINATION Blood pressure 144/94, heart rate 70, afebrile, saturations greater than 92% on 2 L nasal cannula Full physical exam not performed to limit COVID-19 exposure CONSTITUTIONAL: No apparent distress. HEENT: Head is normocephalic. Pupils are equal, round. No JVD ABDOMEN: Soft, nontender. EXTREMITIES: 2+ peripheral pulses, no lower extremity edema NEUROLOGIC EXAMINATION: Patient is awake, alert and oriented x3. ASSESSMENT Chronic persistent atrial fibrillation with abberrant ventricular conduction COVID-19 Pneumonia COPD Cardiomyopathy with EF mildly impaired 40-45%, unknown prior EF. Likely non- ischemic PLAN From a cardiology perspective, no further work up indicated at this time. Bernardo nue home Eliquis, amiodarone, Cardizem and metoprolol tartrate. Recommend patient follow up with Dr. Martini and Dr. Kennedy as scheduled outpatient. We will follow the patient as needed. Please reach out with further questions or concerns. Nurse Practitioner note has been reviewed, I agree with a documented findings and plan of care. Patient was seen and examined. Past Medical History Past Medical History: Atrial Fibrillation, COPD History of Any Multi-Drug Resistant Organisms: None Reported Past Surgical History: Ablation Additional Past Surgical History / Comment(s): 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 Past Psychological History: No Psychological Hx Reported Smoking Status: Former smoker Past Alcohol Use History: None Reported Past Drug Use History: None Reported - Past Family History Father Family Medical History: Myocardial Infarction (VT), Rheumatoid Arthritis (RA) Medications and Allergies Home Medications Medication Instructions Recorded Confirmed Type Albuterol Sulfate [Ventolin HFA] 2 puff INHALATION RT-Q6H PRN 09/30/20 09/05/21 History Ondansetron Odt [Zofran Odt] 4 mg PO Q8HR PRN #10 tab 09/30/20 09/05/21 Rx Pantoprazole Sodium [Protonix] 40 mg PO DAILY 09/30/20 09/05/21 History busPIRone HCl [Buspar] 10 mg PO TID 09/30/20 09/05/21 History Amiodarone [Cordarone] 200 mg PO DAILY 09/05/21 09/05/21 History Apixaban [Eliquis] 5 mg PO BID 09/05/21 09/05/21 History Diltiazem HCl [Diltiazem HCl 24Hr 120 mg PO DAILY 09/05/21 09/05/21 History ER (CD)] Ipratropium [place] [Atrovent Hfa] 2 puff INHALATION RT-QID 09/05/21 09/05/21 H istory Metoprolol Tartrate [Lopressor] 100 mg PO BID 09/05/21 09/05/21 History Mirtazapine [Remeron] 45 mg PO HS 09/05/21 09/05/21 History Allergies Allergy/AdvReac Type Severity Reaction Status Date / Time amoxicillin [From Augmentin] Allergy Unknown Verified 09/05/21 18:10 clavulanic acid Allergy Unknown Verified 09/05/21 18:10 [From Augmentin] codeine Allergy Unknown Verified 09/05/21 18:10 Tetracyclines Allergy Unknown Verified 09/05/21 18:10 Physical Exam Vitals: Vital Signs Temp Pulse Resp BP BP Pulse Ox 09/09/21 10:09 97.8 F 70 18 144/94 93 L 09/09/21 08:06 94 L 09/09/21 06:17 97.9 F 77 19 143/77 93 L 09/09/21 02:29 97.6 F 70 21 105/66 93 L 09/08/21 22:41 97.5 F L 61 20 132/88 93 L 09/08/21 20:00 51 L 17 09/08/21 18:37 98.2 F 51 L 17 171/96 90 L 09/08/21 14:00 98.4 F 63 16 122/75 94 L Intake and Output 09/08/21 09/09/21 09/09/21 22:59 06:59 14:59 Output Total 2100 600 Balance -2100 -600 Output: Urine 2100 600 Other: # Voids 1 Results 09/09/21 06:33 09/09/21 06:33 Current Medications Generic Name Dose Route Start Last Admin Trade Name Freq PRN Reason Stop Dose Admin Acetaminophen 650 mg 09/05/21 17:32 09/06/21 19:30 Acetaminophen Tab 325 Mg Tab PO 650 mg Q6HR PRN Administration Mild Pain or Fever > 100.5 Albuterol Sulfate 2 puff 09/08/21 09:15 09/09/21 08:06 Albuterol Hfa Inhaler INHALATION 2 puff RT-Q4H QING Administration Amiodarone HCl 200 mg 09/06/21 09:00 09/09/21 08:05 Amiodarone 200 Mg Tab PO 200 mg DAILY QING Administration Apixaban 5 mg 09/06/21 01:15 09/09/21 08:05 Apixaban 5 Mg Tab PO 5 mg BID QING Administration Protocol Azithromycin 500 mg 09/08/21 09:15 09/09/21 08:06 Azithromycin 500 Mg Tab PO 500 mg DAILY QING Administration Buspirone HCl 10 mg 09/06/21 01:15 09/09/21 08:06 Buspirone Hcl 10 Mg Tab PO 10 mg TID QING Administration Dexamethasone Sodium Phosphate 6 mg 09/06/21 09:00 09/09/21 08:06 Dexamethasone Sod Phosphate 10 Mg/Ml 1 Ml Vial IV 09/15/21 09:01 6 mg DAILY QING Administration Diltiazem HCl 120 mg 09/06/21 09:00 09/09/21 08:07 Diltiazem Cd 120 Mg Cap.Er.24h PO 120 mg DAILY QING Administration Furosemide 40 mg 09/08/21 09:15 09/09/21 08:07 Furosemide 10 Mg/Ml 4 Ml Vial IV 40 mg DAILY QING Administration Sodium Chloride 1,000 mls @ 75 mls/hr 09/05/21 17:45 09/09/21 05:47 Saline 0.9% IV 75 mls/hr .[id number] QING Administration Ibuprofen 400 mg 09/05/21 17:32 Ibuprofen 400 Mg Tab PO Q6HR PRN Mild Pain or Fever > 100.5 Metoprolol Tartrate 100 mg 09/06/21 01:15 09/09/21 08:05 Metoprolol Tartrate 50 Mg Tab PO 100 mg BID QING Administration Mirtazapine 45 mg 09/06/21 01:30 09/08/21 20:49 Mirtazapine 45 Mg Tablet PO 45 mg HS QING Administration Naloxone HCl 0.2 mg 09/05/21 17:32 Naloxone 0.4 Mg/Ml 1 Ml Vial IV Q2M PRN Opioid Reversal Pantoprazole Sodium 40 mg 09/06/21 09:00 09/09/21 08:06 Pantoprazole 40 Mg Tablet PO 40 mg DAILY QING Administration Tiotropium [place] 2 puff 09/08/21 10:00 09/09/21 08:06 Tiotropium 2.5 Mcg Inhaler INHALATION 2 puff RT-DAILY QING Administration Intake and Output 09/08/21 09/09/21 09/09/21 22:59 06:59 14:59 Output Total 2100 600 Balance -2100 -600 Output: Urine 2100 600 Other: # Voids 1 09/08/21 06:22 09/08/21 06:22
[2021-09-09 14:23] VITALS: BP 118/69; PULSE 73; RESP 17; TEMP 98.7
--- NOTE | 2021-09-09 14:31 | P.DS ---
Providers Date of admission: 09/05/21 17:57 Expected date of discharge: 09/09/21 Attending physician: Annabel Deleon MD Consults: 09/07/21 11:42 Consult Physician Routine Consulting Provider: Ibrahima Lane Consult Reason/Comments: covid Do you want consulting provider notified?: Yes 09/08/21 13:57 Consult Physician Routine Consulting Provider: Ibrahima Lane Consult Reason/Comments: COVID Do you want consulting provider notified?: Already Contacted 09/09/21 00:11 Consult Physician Routine Consulting Provider: [facility] Consult Reason/Comments: Arrhythmias Do you want consulting provider notified?: Yes, Notify in am Primary care physician: Physician Nonstaff Hospital Course: Discharge Diagnosis: Acute hypoxic respiratory failure, multifactorial secondary to Covid pneumonitis on top of COPD exacerbation and acute diastolic heart failure Covid pneumonitis in an unvaccinated patient Acute Diastolic Heart Failure COPD with acute exacerbation Polycythemia Hyponatremia Permanent atrial fibrillation on anticoagulation with Eliquis, please follow-up as scheduled with your track moving machine operator and soldering machine tender Dr. Martini and Dr. Kennedy. Hypertension, controlled Hospital Course: Patient is a 65-year-old female with a past medical history of hypertension, permanent atrial fibrillation on anticoagulation with Eliquis, and COPD not on home oxygen dependent. She presented to the hospital on 09/05/21 with a chief complaint of shortness of breath and fatigue 4 days. She was seen and fully evaluated in the emergency department. Initial chest x-ray showing mild pulmonary interstitial infiltrates concerning for fluid overload and mild car diomegaly. EKG revealed atrial fibrillation with a controlled ventricular rate at 85 bpm. Labs obtained with CBC revealing polycythemia with hemoglobin of 18.6 and thrombocytopenia with platelet count of 112, BMP revealing mild hyponatremia with sodium of 132 otherwise no significant abnormalities, troponins trended 3 at 0.022, 0.017, and 0.021. ProBNP was 1120. CRP was 1.6, LDH 793, and d-dimer of 0.45. Patient tested positive for Covid 19 virus. Patient was admitted under our services for acute diastolic heart failure and acute hypoxic respiratory failure resulting from multifactorial issues including Covid pneumonitis, COPD exacerbation, and acute diastolic heart failure. Patient treated with steroids, azithromycin, diuresis and supplemental oxygen. She was seen and evaluated by cardiology recommending that she follow-up with her track moving machine operator and soldering machine tender, Dr. Martini and Dr. Kennedy outpatient as discussed for previously scheduled ablation. Patient's condition improved and she was weaned off of oxygen. Pulse ox 93-94% on room air and 90% with ambulation. Patient is stable for discharge at this time. Educated patient on need to follow up with her primary care provider in [place] as well as following up with track moving machine operator and soldering machine tender as previously scheduled. Patient being discharged home on remainder of 4 days of azithromycin totaling a 5 day course, Lasix 40 mg by mouth daily, and Decadron 6 mg daily for an additional 6 days to total a 10 day course. Patient is stable for discharge at this time. Patient given lab prescription to have BMP drawn in 3 days for continued monitoring of renal function and electrolytes while diuresing. Patient seen and examined at bedside. She reports, "I am ready to get out of here". Patient denies having any headache, lightheadedness, dizziness, chest pain, palpitations, shortness of breath at rest or with exertion. She continues to have a slight cough but denies any sputum production. Patient also denies having any abdominal pain, nausea, vomiting, or experiencing any numbness/tingling/weakness in her extremities. Patient reports feeling much better since being diuresed. Vital signs reviewed and stable. General: Nontoxic, no distress and appears stated age. Obese Derm: Skin warm and dry, normal coloration for ethnicity. Head: Atraumatic, normocephalic and symmetric. Eyes: EOMs intact, no lid lag, and anicteric sclera Mouth: no lip lesions, mucus membranes moist Cardiovascular: regular rate and rhythm with normal S1S2, no murmur, positive posterior tibial pulses bilaterally, and cap refill < 2 seconds. Lungs: Respirations even, regular, and unlabored on room air. Lungs CTA bilaterally, no rhonchi, no rales, no wheezing, and no accessory muscle usage. Abdominal: soft, nontender to palpation, no guarding, no appreciable organomegaly Ext: ROM intact. No gross muscle atrophy, no edema, no contractures Neuro: Speech clear, face symmetrical and CN II-XII grossly intact with no noted focal neuro deficits Psych: Alert and oriented to person, place, time, and situation. Appropriate and pleasant affect. A total of 45 minutes of time were spent preparing this complex discharge summary. Patient Condition at Discharge: Stable Plan - Discharge Summary Discharge Rx Participant: No New Discharge Prescriptions: New Dexamethasone [Decadron] 6 mg PO DAILY 6 Days #6 tablet Azithromycin [Zithromax] 500 mg PO DAILY 4 Days #4 tab Furosemide [Lasix] 40 mg PO DAILY 30 Days #30 tablet Continue Pantoprazole Sodium [Protonix] 40 mg PO DAILY Albuterol Sulfate [Ventolin HFA] 2 puff INHALATION RT-Q6H PRN PRN Reason: Shortness Of Breath busPIRone HCl [Buspar] 10 mg PO TID Ondansetron Odt [Zofran ODT] 4 mg PO Q8HR PRN #10 tab PRN Reason: Nausea Apixaban [Eliquis] 5 mg PO BID Mirtazapine [Remeron] 45 mg PO HS Ipratropium [place] [Atrovent Hfa] 2 puff INHALATION RT-QID Amiodarone [Cordarone] 200 mg PO DAILY Metoprolol Tartrate [Lopressor] 100 mg PO BID Diltiazem HCl [Diltiazem HCl 24Hr ER (CD)] 120 mg PO DAILY Discharge Medication List Albuterol Sulfate [Ventolin HFA] 2 puff INHALATION RT-Q6H PRN 09/30/20 [History] Ondansetron Odt [Zofran ODT] 4 mg PO Q8HR PRN #10 tab 09/30/20 [Rx] Pantoprazole Sodium [Protonix] 40 mg PO DAILY 09/30/20 [History] busPIRone HCl [Buspar] 10 mg PO TID 09/30/20 [History] Amiodarone [Cordarone] 200 mg PO DAILY 09/05/21 [History] Apixaban [Eliquis] 5 mg PO BID 09/05/21 [History] Diltiazem HCl [Diltiazem HCl 24Hr ER (CD)] 120 mg PO DAILY 09/05/21 [History] Ipratropium [place] [Atrovent Hfa] 2 puff INHALATION RT-QID 09/05/21 [History] Metoprolol Tartrate [Lopressor] 100 mg PO BID 09/05/21 [History] Mirtazapine [Remeron] 45 mg PO HS 09/05/21 [History] Azithromycin [Zithromax] 500 mg PO DAILY 4 Days #4 tab 09/09/21 [Rx] Dexamethasone [Decadron] 6 mg PO DAILY 6 Days #6 tablet 09/09/21 [Rx] Furosemide [Lasix] 40 mg PO DAILY 30 Days #30 tablet 09/09/21 [Rx] Follow up Appointment(s)/Referral(s): Nonstaff,Physician [Primary Care Provider] - 1-2 days Ambulatory/Diagnostic Orders: Comprehensive Metabolic Panel [LAB.AMB] Time Frame: 3 Days, Location: None Selected Activity/Diet/Wound Care/Special Instructions: Activity: As tolerated. Take breaks as needed. Diet: Heart healthy and carb consistent diet. Avoid salts, or foods with hidden salts such as canned or boxed foods and frozen dinners. Extra salt makes your heart work harder and traps the fluid in your body for longer. Special Instructions: Take all of your medications as directed and remember to keep all of your doctor's appointments and follow-up as needed. Weigh yourself every morning after you urinate. If you gain 3 pounds overnight or more than 5 pounds in one week, call your primary physician and track moving machine operator for guidance on your medications or they may want to see you in their office. Keep a daily log of your weights and be sure to bring with you at follow up visits with your PCP and track moving machine operator. Take all of your medications as directed, especially your water pills. NEVER skip a dose. And remember to keep all of your doctor's appointments and follow- up as needed. Elevate your legs when you are not up moving around to help with circulation and prevent swelling. Compression stockings are also a great way to improve lower extremity circulation and prevent/improve lower extremity edema. Call your primary care provider and track moving machine operator if you notice any extra swelling in your legs, ankles, feet or abdomen, if you have a new dry cough, if your shortness of breath worsens with activity or at rest, or if you feel more fatigued. Please follow-up with your primary care provider as well as your track moving machine operator and soldering machine tender, Dr. Martini and Dr. Kennedy outpatient as discussed for previously scheduled ablation. Remember to continue social isolation 14 days from positive test and must be symptom-free for 2 days, earliest time out of isolation being 09/19/21. Thank you for allowing us to participate in your care, it was truly a pleasure having you for our patient!!! Discharge Disposition: HOME SELF-CARE
--- NOTE | 2021-09-09 16:48 | P.PN ---
Subjective Progress Note Date: 09/09/21 Principal diagnosis: Dyspnea 65-year-old female patient with known history of COPD presented to the hospital because of worsening shortness of breath and feeling sick and fatigued and the patient was diagnosed having COVID 19 related pneumonia. Noted the patient was not vaccinated for COVID 19. She did not have any other symptoms. Denies having any nausea or vomiting or diarrhea. Denies having any fever or chills. The patient was seen in the emergency department. The chest x-ray showed bilateral pulmonary infiltrates. The patient was afebrile. The patient was hemodynamically stable. Pulse ox was low on the 90% and the patient was placed initially on 4 L and currently she is on 2liters by nasal cannula. The patient's d-dimer is at 0.36, the patient had a LDH level of 316 which is lower compared to 793 at a time of admission and the CRP level is less than 0.3. The patient currently is on Decadron 6 mg IV every 24 hours. The patient is also on long-term medical condition with Eliquis nontender the patient has history of atrial fibrillation. The patient remains on amiodarone and metoprolol regarding her atrial fib. On 09/08/2021, the patient is being seen for a follow-up. I saw her in consultation yesterday for COVID 19 related pneumonia. The patient was being treated with Decadron. Noted the inflammatory markers were essentially normal including LDH and CRP. She is also known to have chronic atrial fibrillation. She lives in the [facility] and she was visiting in [place] with her son when she ended up being sick and she was hospitalized. Overnight, the patient had some worsening shortness of breath. Her oxygen level dropped and the patient had to be placed on oxygen at 3.5 L. Her current pulse ox in the order of 93-94%. The chest x-ray done at that time showed CHF/pulmonary edema and for that reason, the patient was given Lasix at a dose of 40 mg IV push which helped her with diuresis. She is resting comfortably at this point in time. Echocardiogram is to be completed. Meanwhile, the patient underwent further blood work that showed a d-dimer of 0.6 and the LDH level was down to 285 and a CRP level is less than 0.3. Hemoglobin is at 15.8 with a white cell count of 11.2. For now, the patient is on Lasix 40 mg IV every 24 hours she remains on Decadron. She felt better. She is a 92% pulse ox with oxygen flow of 3 L. On 09/09/2021 patient seen in follow-up on medical surgical floor. She is breathing much easier, doing significantly better since admission, she is on room air, pulse ox is 93-97%, she has had no acute events on a, no fever or chills, she's been tolerating ambulation. No complaints of chest discomfort, no cough, no worsening dyspnea. Her last chest x-ray from 09/08/2021 showed diffuse increased lung markings, and streaky right lower lobe opacity likely related to atelectasis. Patient was treated with a combination of inhaled bronchodilators, Eliquis, she received a dose of Lasix this morning, and she was given steroids. She has diabetes, she is in -2.99 fluid balance over the last 24 hours. His labs have been reviewed, blood cell count is stable at 11 0.7, hemoglobin is 16.1, platelet count is 116, d-dimer is 0.52, electrolytes are within normal limits, LDH is 324, slightly increased compared to yesterday's value but overall improved since admission, CRP is less than 0.30, urinalysis showed no evidence of infection. Patient remains in atrial fibrillation which is chronic and persistent for her, she is maintained on amiodarone 200 mg daily, and Eliquis 5 mg daily, she is also on Cardizem CD 120 mg daily. In addition to metoprolol 100 mg twice daily. Her each of fibrillation has been controlled., Blood pressure is stable Objective - Vital Signs Vital signs: Vital Signs Temp 98.7 F 09/09/21 14:22 Pulse 73 09/09/21 14:22 Resp 17 09/09/21 14:22 BP 118/69 09/09/21 14:22 Pulse Ox 97 09/09/21 14:22 Intake & Output 09/08/21 09/09/21 09/09/21 18:59 06:59 18:59 Output Total 2600 300 600 Balance -2600 -300 -600 Output: Urine 2600 300 600 Other: # Voids 1 - Exam GENERAL EXAM: Alert, very pleasant, 65-year-old white female, on room air, with pulse ox of 93-97. comfortable in no apparent distress. HEAD: Normocephalic/atraumatic. EYES: Normal reaction of pupils, equal size. Conjunctiva pink, sclera white. NOSE: Clear with pink turbinates. THROAT: No erythema or exudates. NECK: No masses, no JVD, no thyroid enlargement, no adenopathy. CHEST: No chest wall deformity. Symmetrical expansion. LUNGS: Equal air entry with crackles at the bases CVS: Regular rate and rhythm, normal S1 and S2, no gallops, no murmurs, no rubs ABDOMEN: Soft, nontender. No hepatosplenomegaly, normal bowel sounds, no guardi ng or rigidity. EXTREMITIES: No clubbing, no edema, no cyanosis, 2+ pulses and upper and lower extremities. MUSCULOSKELETAL: Muscle strength and tone normal. SPINE: No scoliosis or deformity SKIN: No rashes CENTRAL NERVOUS SYSTEM: Alert and oriented -3. No focal deficits, tone is normal in all 4 extremities. PSYCHIATRIC: Alert and oriented -3. Appropriate affect. Intact judgment and insight. - Labs CBC & Chem 7: 09/09/21 06:33 09/09/21 06:33 Labs: Abnormal Lab Results - Last 24 Hours (Table) 09/08/21 09/09/21 09/09/21 Range/Units 06:22 06:33 06:33 WBC 11.07 H (4.50-10.00) X 10*3/uL RBC 5.59 H (4.10-5.20) X 10*6/uL Hgb 16.1 H (12.0-15.0) g/dL Hct 51.6 H (37.2-46.3) % MCHC 31.2 L (32.0-37.0) g/dL RDW 15.9 H (11.5-14.5) % Plt Count 116 L (140-440) X 10*3/uL MPV 12.3 H (9.5-12.2) fL Immature Gran # 0.17 H (0.00-0.04) X 10*3/uL Neutrophils # 9.11 H (1.80-7.70) X 10*3/uL Eosinophils # 0 L (0.04-0.35) X 10*3/uL BUN/Creatinine Ratio 23.88 H (12.00-20.00) Ratio Glucose 111 H (70-110) mg/dL AST 41 H (13-35) U/L ALT 47 H (8-44) U/L Lactate Dehydrogenase 324 H (120-246) U/L NT-Pro-B Natriuret Pep 2248 H (0-125) pg/mL Albumin/Globulin Ratio 1.30 L (1.60-3.17) g/dL Assessment and Plan Plan: Assessment: #1. Acute COVID-19 related pneumonia. Chest x-ray showed bilateral interstitial pulmonary infiltrates, with the possibility of acute CHF exacerbation. Patient was treated with steroids, inhaled bronchodilators, and diuretics and clinically patient had a good response to treatment #2. Acute hypoxic respiratory failure related to the above, improved and patient is currently on room air with pulse ox of 93-97% #3. History of COPD and patient has not oxygen dependent a baseline #4. History of chronic atrial fibrillation, controlled, and patient is maintained on oral amiodarone, metoprolol, and Eliquis Plan: Patient is on room air, Breathing much easier Vital signs have been stable Patient is tolerating ambulation A. fib has been controlled, patient continues on Eliquis She is had no acute events overnight She stable for discharge home from pulmonary perspective She can finish a total 10 day course of oral Decadron She can resume her maintenance inhalers and nebulized treatments She can follow up with her PCP at the place of her residence and if she still in the area she can certainly follow up with Dr. Lane in 2 weeks if she wishes I performed a history & physical examination of the patient and discussed their management with my nurse practitioner, Rachael Gross. I reviewed the nurse practitioner's note and agree with the documented findings and plan of care. Lung sounds are positive for basilar rales throughout the lung finch. The findings and the impression was discussed with the patient. I attest to the documentation by the nurse practitioner. Time with Patient: Less than 30
== END 2021-09-09 16:12 | disposition home or self-care (01) | DRG 177 ==
LOC: EC 14:17 → 4SSUR 17:57
PROVIDERS: ADMIT Internal Medicine; ATTEND Internal Medicine
DX: U07.1 COVID-19 (principal); J96.01 Acute respiratory failure with hypoxia; J12.82 Pneumonia due to coronavirus disease 2019; I50.31 Acute diastolic (congestive) heart failure; J44.0 Chronic obstructive pulmonary disease with (acute) lower respiratory infection; I48.20 Chronic atrial fibrillation, unspecified; I48.21 Permanent atrial fibrillation; E87.1 Hypo-osmolality and hyponatremia; I42.9 Cardiomyopathy, unspecified; J44.1 Chronic obstructive pulmonary disease with (acute) exacerbation; J98.11 Atelectasis; Z79.01 Long term (current) use of anticoagulants; I48.0 Paroxysmal atrial fibrillation; R30.9 Painful micturition, unspecified; D75.1 Secondary polycythemia; F17.200 Nicotine dependence, unspecified, uncomplicated; R53.83 Other fatigue; Z79.899 Other long term (current) drug therapy; E11.9 Type 2 diabetes mellitus without complications; D69.6 Thrombocytopenia, unspecified; I11.0 Hypertensive heart disease with heart failure; Z82.49 Family history of ischemic heart disease and other diseases of the circulatory system; K21.9 Gastro-esophageal reflux disease without esophagitis; M54.9 Dorsalgia, unspecified
CPT/HCPCS: 36415; 71045; 71046; 80048; 80053; 80076; 81003; 82728; 83605; 83615; 83735; 83880; 84484; 85025; 85379; 85384; 85610; 85730; 86140; 87635; 93005; 93306; 94640; 94760; 96374; 96375; 99285

== ENCOUNTER 2022-09-30 17:06 | Emergency (ER) | payer MEDICARE, OTHER ==
[2022-09-30 17:14] VITALS: TEMP 98.4
--- NOTE | 2022-09-30 18:00 | XR ---
EXAMINATION TYPE: XR chest 2V DATE OF EXAM: 09/30/2022 COMPARISON: 09/08/2021 INDICATION: Difficulty breathing TECHNIQUE: Frontal and lateral views of the chest are obtained. FINDINGS: The heart size is normal. The pulmonary vasculature is normal. Right lower lobe infiltrate is present. Minimal right pleural effusion may be present.. IMPRESSION: 1. Small right pleural effusion. 2. Right basilar infiltrate. Correlate for atelectasis
--- NOTE | 2022-09-30 18:08 | ED ---
SOB HPI - General Source: patient, EMS, RN notes reviewed Mode of arrival: EMS - History of Present Illness MD Complaint: shortness of breath <Jono Wright - Last Filed: 09/30/22 21:35> <Kyle Mart - Last Filed: 10/01/22 01:07> - General Chief Complaint: Shortness of Breath Stated Complaint: sob Time Seen by Provider: 09/30/22 17:06 - History of Present Illness Initial Comments: 66-year-old female presents by EMS with complaints of shortness of breath for the past 2-3 days she does claim she has some exertional dyspnea to decreased breath sounds per paramedics she was given 2 treatments in route with some improvement. She denies any fevers chills or sweats she does state that she normally has exertional dyspnea and desaturation states that lately she's been having elevated saturations with exertion no overt chest pain no other complaints or modifying factors at this time (Jono Wright) - Related Data Home Medications Medication Instructions Recorded Confirmed Albuterol Sulfate [Ventolin HFA] 2 puff INHALATION RT-Q6H PRN 09/30/20 09/30/22 Pantoprazole Sodium [Protonix] 40 mg PO BID 09/30/20 09/30/22 busPIRone HCl [Buspar] 10 mg PO TID PRN 09/30/20 09/30/22 ALPRAZolam [Xanax] 0.5 mg PO DAILY PRN 09/30/22 09/30/22 Aspirin EC [Ecotrin Low Dose] 81 mg PO DAILY 09/30/22 09/30/22 Biotin 5 mg PO DAILY 09/30/22 09/30/22 Bumetanide [BUMEX] 2 mg PO BID 09/30/22 09/30/22 Cholecalciferol [Vitamin D3 (25 25 mcg PO DAILY 09/30/22 09/30/22 Mcg = 1000 Iu)] Clopidogrel [Plavix] 75 mg PO DAILY 09/30/22 09/30/22 Cyanocobalamin [Vitamin B-12] 500 mcg PO DAILY 09/30/22 09/30/22 Dapagliflozin Propanediol [Farxiga] 10 mg PO DAILY 09/30/22 09/30/22 Dicyclomine [Bentyl] 10 mg PO BID PRN 09/30/22 09/30/22 Escitalopram [Lexapro] 10 mg PO DAILY 09/30/22 09/30/22 Fluticasone/Umeclidin/Vilanter 1 puff INHALATION RT-DAILY 09/30/22 09/30/22 [Nam Honeycuttta 100-62.5-25] Ipratropium-Albuterol Nebulize 3 ml INHALATION RT-Q6H PRN 09/30/22 09/30/22 [Duoneb 0.5 mg-3 mg/3 ml Soln] Isosorbide Mononitrate ER [Imdur] 30 mg PO DAILY 09/30/22 09/30/22 Losartan Potassium [Cozaar] 25 mg PO DAILY 09/30/22 09/30/22 Magnesium 250 mg PO DAILY 09/30/22 09/30/22 Metoprolol Succinate [Toprol XL] 200 mg PO DAILY 09/30/22 09/30/22 Mirtazapine [Remeron] 45 mg PO HS 09/30/22 09/30/22 Potassium Chloride [Klor-Con M10] 10 meq PO BID 09/30/22 09/30/22 Rosuvastatin [Crestor] 20 mg PO DAILY 09/30/22 09/30/22 Spironolactone [Aldactone] 25 mg PO DAILY 09/30/22 09/30/22 Sucralfate [Carafate] 1 gm PO ACHS 09/30/22 09/30/22 Tiadylt Er 360 Mg 360 mg PO DAILY 09/30/22 09/30/22 Zinc Gluconate [Zinc] 50 mg PO DAILY 09/30/22 09/30/22 Allergies Allergy/AdvReac Type Severity Reaction Status Date / Time amoxicillin [From Augmentin] Allergy Unknown Verified 09/30/22 18:56 clavulanic acid Allergy Unknown Verified 09/30/22 18:56 [From Augmentin] codeine Allergy Unknown Verified 09/30/22 18:56 metformin Allergy Nausea & Verified 09/30/22 18:56 Vomiting Tetracyclines Allergy Unknown Verified 09/30/22 18:56 Review of Systems ROS Other: All systems not noted in ROS Statement are negative. <Jono Wright - Last Filed: 09/30/22 21:35> ROS Other: All systems not noted in ROS Statement are negative. <Kyle Mart - Last Filed: 10/01/22 01:07> ROS Statement: Those systems with pertinent positive or pertinent negative responses have been documented in the HPI. 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 Past Psychological History: No Psychological Hx Reported Smoking Status: Former smoker Past Alcohol Use History: None Reported Past Drug Use History: None Reported - Past Family History Father Family Medical History: Myocardial Infarction ([place]), Rheumatoid Arthritis ([place]) <Jono Wright - Last Filed: 09/30/22 21:35> General Exam General appearance: alert, anxious Head exam: Present: atraumatic, normocephalic, normal inspection Eye exam: Present: normal appearance, PERRL, EOMI. Absent: scleral icterus, con junctival injection, periorbital swelling ENT exam: Present: normal exam, mucous membranes moist Neck exam: Present: normal inspection, full ROM, other (No stridor. Bruits). Absent: tenderness, meningismus, lymphadenopathy Respiratory exam: Present: decreased breath sounds. Absent: respiratory distress, wheezes, rales, rhonchi, stridor Cardiovascular Exam: Present: normal rhythm, bradycardia, normal heart sounds. Absent: systolic murmur, diastolic murmur, rubs, gallop, clicks GI/Abdominal exam: Present: soft, normal bowel sounds. Absent: distended, tenderness, guarding, rebound, rigid Extremities exam: Present: normal inspection, full ROM, normal capillary refill. Absent: tenderness, pedal edema, joint swelling, calf tenderness Back exam: Present: normal inspection Neurological exam: Present: alert, oriented X3, CN II-XII intact Psychiatric exam: Present: normal affect, normal mood Skin exam: Present: warm, dry, intact, normal color. Absent: rash <KyleJono - Last Filed: 09/30/22 21:35> General appearance: alert, in no apparent distress, anxious, lethargic, in distress Head exam: Present: atraumatic, normocephalic, normal inspection Eye exam: Present: normal appearance, PERRL, EOMI. Absent: scleral icterus, conjunctival injection, periorbital swelling ENT exam: Present: normal exam, mucous membranes moist Neck exam: Present: normal inspection. Absent: tenderness, meningismus, lymphadenopathy Respiratory exam: Present: normal lung sounds bilaterally. Absent: respiratory distress, wheezes, rales, rhonchi, stridor Cardiovascular Exam: Present: regular rate, normal rhythm, normal heart sounds. Absent: systolic murmur, diastolic murmur, rubs, gallop, clicks GI/Abdominal exam: Present: soft, normal bowel sounds. Absent: distended, tenderness, guarding, rebound, rigid Extremities exam: Present: normal inspection, full ROM, normal capillary refill. Absent: tenderness, pedal edema, joint swelling, calf tenderness Back exam: Present: normal inspection Neurological exam: Present: alert, oriented X3, CN II-XII intact Psychiatric exam: Present: normal affect, normal mood Skin exam: Present: warm, dry, intact, normal color. Absent: rash <Kyle Mart - Last Filed: 10/01/22 01:07> - General Exam Comments Initial Comments: This is a well-developed well-nourished awake alert oriented 4 female (Jono Wright) Course <Jono Wright - Last Filed: 09/30/22 21:35> <Kyle Mart - Last Filed: 10/01/22 01:07> Vital Signs 09/30/22 09/30/22 09/30/22 17:10 18:32 19:30 Temperature 98.4 F Pulse Rate 54 L 53 L Respiratory 22 20 28 H Rate Blood Pressure 87/48 96/64 O2 Sat by Pulse 99 99 97 Oximetry 09/30/22 09/30/22 09/30/22 19:38 20:00 21:00 Temperature Pulse Rate 54 L 53 L 56 L Respiratory 26 H 18 13 Rate Blood Pressure 96/54 90/53 107/75 O2 Sat by Pulse 100 100 100 Oximetry 09/30/22 21:03 Temperature Pulse Rate 52 L Respiratory 24 Rate Blood Pressure 107/75 O2 Sat by Pulse 100 Oximetry - Reevaluation(s) Reevaluation #1: 09/30/22 19:19 Patient states she's recently been constipated she does have a history of GI bleed in the past she did require blood transfusion. He was just discovered that her hemoglobin today is 7.5. She states that she did have some blood in her stool recently. (Jono Wright) Reevaluation #2: 09/30/22 21:29 I did reevaluate patient on multiple occasions she's had no fevers or chills shortness of breath he does have evidence of congestive heart failure she states her normal blood pressure is between 9900-110 systolic. Imaging reviewed by me showed evidence of right lower lobe infiltrate likely secondary to pulmonary mass or congestion with small right pleural effusion. His was patient does d emonstrate evidence of anemia Hemoccult is pending at this time (Jono Wright) Reevaluation #3: 09/30/22 21:36 Pelvic lactic acid level but be secondary to intravascular find depletion as well as chronic renal failure no definitive infectious process identified the case will be endorsed to Dr. Mart. (Jono Wright) Reevaluation #4: 10/01/22 01:05 Patient did have of bright bloody bowel movement here in the emergency department (Kyle Mart) - Consultations Consultation #1: Spoke with Homer Chan was agreeable to transfer (Kyle Mart) Medical Decision Making - Lab Data Result diagrams: 09/30/22 17:15 09/30/22 17:15 - EKG Data -: EKG Interpreted by Me <Jono Wright - Last Filed: 09/30/22 21:35> - Lab Data Result diagrams: 09/30/22 23:49 09/30/22 17:15 - Radiology Data Radiology results: report reviewed (Chest x-rays positive for pneumonia), image reviewed <Kyle Mart - Last Filed: 10/01/22 01:07> - Medical Decision Making 66 female to the emergency department for evaluation multiple pending issues, both pneumonia GI bleed, patient admitted for IV antibiotics and monitoring of hemoglobin. GI consult, patient is anemic, patient is transferred [facility] is do not have GI coverage (Kyle Mart) - Lab Data Lab Results 09/30/22 09/30/22 09/30/22 Range/Units 17:15 17:15 17:15 WBC 10.7 H (3.8-10.6) k/uL RBC 3.85 (3.80-5.40) m/uL Hgb 7.5 L (11.4-16.0) gm/dL Hct 27.4 L (34.0-46.0) % MCV 71.4 L (80.0-100.0) fL MCH 19.5 L (25.0-35.0) pg MCHC 27.4 L (31.0-37.0) g/dL RDW 18.9 H (11.5-15.5) % Plt Count 190 (150-450) k/uL MPV 10.0 Neutrophils % 68 % Lymphocytes % 19 % Monocytes % 8 % Eosinophils % 1 % Basophils % 1 % Neutrophils # 7.2 (1.3-7.7) k/uL Lymphocytes # 2.0 (1.0-4.8) k/uL Monocytes # 0.8 (0-1.0) k/uL Eosinophils # 0.1 (0-0.7) k/uL Basophils # 0.1 (0-0.2) k/uL Hypochromasia Marked Poikilocytosis Moderate Anisocytosis Slight Microcytosis Marked PT 11.6 (9.0-12.0) sec INR 1.1 (<1.2) APTT 22.3 (22.0-30.0) sec D-Dimer 1.48 H (<0.60) mg/L FEU Sodium 137 (137-145) mmol/L Potassium 3.8 (3.5-5.1) mmol/L Chloride 99 (98-107) mmol/L Carbon Dioxide 24 (22-30) mmol/L Anion Gap 14 mmol/L BUN 36 H (7-17) mg/dL Creatinine 1.90 H (0.52-1.04) mg/dL Est GFR (CKD-EPI)AfAm 31 (>60 ml/min/1.73 sqM) Est GFR (CKD-EPI)NonAf 27 (>60 ml/min/1.73 sqM) Glucose 116 H (74-99) mg/dL Lactic Ac Sepsis Rflx Plasma Lactic Acid Lalo (0.7-2.0) mmol/L Calcium 8.7 (8.4-10.2) mg/dL Magnesium 2.3 (1.6-2.3) mg/dL Total Bilirubin 0.8 (0.2-1.3) mg/dL AST 29 (14-36) U/L ALT 15 (4-34) U/L Alkaline Phosphatase 82 (38-126) U/L Troponin I (0.000-0.034) ng/mL NT-Pro-B Natriuret Pep pg/mL Total Protein 6.9 (6.3-8.2) g/dL Albumin 3.8 (3.5-5.0) g/dL Urine RBC (0-5) /hpf Urine WBC (0-5) /hpf Ur Squamous Epith Cells (0-4) /hpf Urine Bacteria (None) /hpf Hyaline Casts (0-2) /lpf Urine Mucus (None) /hpf Stool Occult Blood (Negative) Coronavirus (PCR) (Not Detectd) Influenza Type A RNA (Not Detectd) Influenza Type B (PCR) (Not Detectd) Blood Type Blood Type Confirm Blood Type Recheck Bld Type Recheck Status Antibody Screen Spec Expiration Date 09/30/22 09/30/22 09/30/22 Range/Units 17:15 17:15 17:15 WBC (3.8-10.6) k/uL RBC (3.80-5.40) m/uL Hgb (11.4-16.0) gm/dL Hct (34.0-46.0) % MCV (80.0-100.0) fL MCH (25.0-35.0) pg MCHC (31.0-37.0) g/dL RDW (11.5-15.5) % Plt Count (150-450) k/uL MPV Neutrophils % % Lymphocytes % % Monocytes % % Eosinophils % % Basophils % % Neutrophils # (1.3-7.7) k/uL Lymphocytes # (1.0-4.8) k/uL Monocytes # (0-1.0) k/uL Eosinophils # (0-0.7) k/uL Basophils # (0-0.2) k/uL Hypochromasia Poikilocytosis Anisocytosis Microcytosis PT (9.0-12.0) sec INR (<1.2) APTT (22.0-30.0) sec D-Dimer (<0.60) mg/L FEU Sodium (137-145) mmol/L Potassium (3.5-5.1) mmol/L Chloride (98-107) mmol/L Carbon Dioxide (22-30) mmol/L Anion Gap mmol/L BUN (7-17) mg/dL Creatinine (0.52-1.04) mg/dL Est GFR (CKD-EPI)AfAm (>60 ml/min/1.73 sqM) Est GFR (CKD-EPI)NonAf (>60 ml/min/1.73 sqM) Glucose (74-99) mg/dL Lactic Ac Sepsis Rflx Plasma Lactic Acid Lalo 3.7 H* (0.7-2.0) mmol/L Calcium (8.4-10.2) mg/dL Magnesium (1.6-2.3) mg/dL Total Bilirubin (0.2-1.3) mg/dL AST (14-36) U/L ALT (4-34) U/L Alkaline Phosphatase (38-126) U/L Troponin I <0.012 (0.000-0.034) ng/mL NT-Pro-B Natriuret Pep 1940 pg/mL Total Protein (6.3-8.2) g/dL Albumin (3.5-5.0) g/dL Urine RBC (0-5) /hpf Urine WBC (0-5) /hpf Ur Squamous Epith Cells (0-4) /hpf Urine Bacteria (None) /hpf Hyaline Casts (0-2) /lpf Urine Mucus (None) /hpf Stool Occult Blood (Negative) Coronavirus (PCR) (Not Detectd) Influenza Type A RNA (Not Detectd) Influenza Type B (PCR) (Not Detectd) Blood Type Blood Type Confirm Blood Type Recheck Bld Type Recheck Status Antibody Screen Spec Expiration Date 09/30/22 09/30/22 09/30/22 Range/Units 17:15 17:15 18:58 WBC (3.8-10.6) k/uL RBC (3.80-5.40) m/uL Hgb (11.4-16.0) gm/dL Hct (34.0-46.0) % MCV (80.0-100.0) fL MCH (25.0-35.0) pg MCHC (31.0-37.0) g/dL RDW (11.5-15.5) % Plt Count (150-450) k/uL MPV Neutrophils % % Lymphocytes % % Monocytes % % Eosinophils % % Basophils % % Neutrophils # (1.3-7.7) k/uL Lymphocytes # (1.0-4.8) k/uL Monocytes # (0-1.0) k/uL Eosinophils # (0-0.7) k/uL Basophils # (0-0.2) k/uL Hypochromasia Poikilocytosis Anisocytosis Microcytosis PT (9.0-12.0) sec INR (<1.2) APTT (22.0-30.0) sec D-Dimer (<0.60) mg/L FEU Sodium (137-145) mmol/L Potassium (3.5-5.1) mmol/L Chloride (98-107) mmol/L Carbon Dioxide (22-30) mmol/L Anion Gap mmol/L BUN (7-17) mg/dL Creatinine (0.52-1.04) mg/dL Est GFR (CKD-EPI)AfAm (>60 ml/min/1.73 sqM) Est GFR (CKD-EPI)NonAf (>60 ml/min/1.73 sqM) Glucose (74-99) mg/dL Lactic Ac Sepsis Rflx Y Plasma Lactic Acid Lalo (0.7-2.0) mmol/L Calcium (8.4-10.2) mg/dL Magnesium (1.6-2.3) mg/dL Total Bilirubin (0.2-1.3) mg/dL AST (14-36) U/L ALT (4-34) U/L Alkaline Phosphatase (38-126) U/L Troponin I (0.000-0.034) ng/mL NT-Pro-B Natriuret Pep pg/mL Total Protein (6.3-8.2) g/dL Albumin (3.5-5.0) g/dL Urine RBC (0-5) /hpf Urine WBC (0-5) /hpf Ur Squamous Epith Cells (0-4) /hpf Urine Bacteria (None) /hpf Hyaline Casts (0-2) /lpf Urine Mucus (None) /hpf Stool Occult Blood (Negative) Coronavirus (PCR) Not Detected (Not Detectd) Influenza Type A RNA Not Detected (Not Detectd) Influenza Type B (PCR) Not Detected (Not Detectd) Blood Type Blood Type Confirm Blood Type Recheck Bld Type Recheck Status Antibody Screen Spec Expiration Date 09/30/22 09/30/22 09/30/22 Range/Units 19:40 23:00 23:00 WBC (3.8-10.6) k/uL RBC (3.80-5.40) m/uL Hgb (11.4-16.0) gm/dL Hct (34.0-46.0) % MCV (80.0-100.0) fL MCH (25.0-35.0) pg MCHC (31.0-37.0) g/dL RDW (11.5-15.5) % Plt Count (150-450) k/uL MPV Neutrophils % % Lymphocytes % % Monocytes % % Eosinophils % % Basophils % % Neutrophils # (1.3-7.7) k/uL Lymphocytes # (1.0-4.8) k/uL Monocytes # (0-1.0) k/uL Eosinophils # (0-0.7) k/uL Basophils # (0-0.2) k/uL Hypochromasia Poikilocytosis Anisocytosis Microcytosis PT (9.0-12.0) sec INR (<1.2) APTT (22.0-30.0) sec D-Dimer (<0.60) mg/L FEU Sodium (137-145) mmol/L Potassium (3.5-5.1) mmol/L Chloride (98-107) mmol/L Carbon Dioxide (22-30) mmol/L Anion Gap mmol/L BUN (7-17) mg/dL Creatinine (0.52-1.04) mg/dL Est GFR (CKD-EPI)AfAm (>60 ml/min/1.73 sqM) Est GFR (CKD-EPI)NonAf (>60 ml/min/1.73 sqM) Glucose (74-99) mg/dL Lactic Ac Sepsis Rflx Plasma Lactic Acid Lalo 3.4 H* (0.7-2.0) mmol/L Calcium (8.4-10.2) mg/dL Magnesium (1.6-2.3) mg/dL Total Bilirubin (0.2-1.3) mg/dL AST (14-36) U/L ALT (4-34) U/L Alkaline Phosphatase (38-126) U/L Troponin I (0.000-0.034) ng/mL NT-Pro-B Natriuret Pep pg/mL Total Protein (6.3-8.2) g/dL Albumin (3.5-5.0) g/dL Urine RBC (0-5) /hpf Urine WBC (0-5) /hpf Ur Squamous Epith Cells (0-4) /hpf Urine Bacteria (None) /hpf Hyaline Casts (0-2) /lpf Urine Mucus (None) /hpf Stool Occult Blood Negative (Negative) Coronavirus (PCR) (Not Detectd) Influenza Type A RNA (Not Detectd) Influenza Type B (PCR) (Not Detectd) Blood Type A Positive Blood Type Confirm Blood Type Recheck No Previous Record Bld Type Recheck Status CABO Indicated Antibody Screen NEGATIVE Spec Expiration Date 10/03/2022 - 229909/30/22 09/30/22 09/30/22 Range/Units 23:19 23:42 23:49 WBC 12.0 H (3.8-10.6) k/uL RBC 3.89 (3.80-5.40) m/uL Hgb 7.8 L (11.4-16.0) gm/dL Hct 28.7 L (34.0-46.0) % MCV 73.8 L (80.0-100.0) fL MCH 20.1 L (25.0-35.0) pg MCHC 27.2 L (31.0-37.0) g/dL RDW 18.7 H (11.5-15.5) % Plt Count 175 (150-450) k/uL MPV 10.8 Neutrophils % % Lymphocytes % % Monocytes % % Eosinophils % % Basophils % % Neutrophils # (1.3-7.7) k/uL Lymphocytes # (1.0-4.8) k/uL Monocytes # (0-1.0) k/uL Eosinophils # (0-0.7) k/uL Basophils # (0-0.2) k/uL Hypochromasia Marked Poikilocytosis Moderate Anisocytosis Slight Microcytosis Moderate PT (9.0-12.0) sec INR (<1.2) APTT (22.0-30.0) sec D-Dimer (<0.60) mg/L FEU Sodium (137-145) mmol/L Potassium (3.5-5.1) mmol/L Chloride (98-107) mmol/L Carbon Dioxide (22-30) mmol/L Anion Gap mmol/L BUN (7-17) mg/dL Creatinine (0.52-1.04) mg/dL Est GFR (CKD-EPI)AfAm (>60 ml/min/1.73 sqM) Est GFR (CKD-EPI)NonAf (>60 ml/min/1.73 sqM) Glucose (74-99) mg/dL Lactic Ac Sepsis Rflx Plasma Lactic Acid Lalo (0.7-2.0) mmol/L Calcium (8.4-10.2) mg/dL Magnesium (1.6-2.3) mg/dL Total Bilirubin (0.2-1.3) mg/dL AST (14-36) U/L ALT (4-34) U/L Alkaline Phosphatase (38-126) U/L Troponin I (0.000-0.034) ng/mL NT-Pro-B Natriuret Pep pg/mL Total Protein (6.3-8.2) g/dL Albumin (3.5-5.0) g/dL Urine RBC 2 (0-5) /hpf Urine WBC 3 (0-5) /hpf Ur Squamous Epith Cells 4 (0-4) /hpf Urine Bacteria Moderate H (None) /hpf Hyaline Casts 3 H (0-2) /lpf Urine Mucus Rare H (None) /hpf Stool Occult Blood (Negative) Coronavirus (PCR) (Not Detectd) Influenza Type A RNA (Not Detectd) Influenza Type B (PCR) (Not Detectd) Blood Type Blood Type Confirm A Positive Blood Type Recheck Bld Type Recheck Status Antibody Screen Spec Expiration Date - EKG Data EKG Comments: EKG interpreted by me shows a bradycardia 51 QRS duration 12 QT since QTC 455/4:30 30 QRS voltage incomplete right bundle-branch block evidence of left anterior fascicular block no acute ST-T wave changes appreciated (Jono Wright) Critical Care Time Critical Care Time: Yes Total Critical Care Time: 31 <Kyle Mart - Last Filed: 10/01/22 01:07> Disposition <Jono Wright - Last Filed: 09/30/22 21:35> Is patient prescribed a controlled substance at d/c from ED?: No Time of Disposition: 01:10 - Out of Hospital Transfer - Req. Specs Out of Hospital Transfer - Requested Specifics: Other Emergency Center ([facility]) <Kyle Mart - Last Filed: 10/01/22 01:07> Clinical Impression: History of COPD, Hypoxia, Community acquired pneumonia, Acute exacerbation of chronic obstructive pulmonary disease, GI bleed, BRBPR (bright red blood per rectum), Anemia Disposition: OTHER INSTITUTION NOT DEFINED Condition: Serious Referrals: Nonstaff,Physician [Primary Care Provider] - 1-2 days
[2022-09-30] MEDS ORDERED: SODIUM CHLORIDE 0.9% 1,000 ML IV STA (18:39)
[2022-09-30] MEDS ORDERED: fentaNYL (PF) 50 MCG/ML 2 ML AMP IV STA (18:40)
[2022-09-30 18:50] LABS: Albumin 3.8 g/dL (3.5-5.0); Calcium 8.7 mg/dL (8.4-10.2); Magnesium 2.3 mg/dL (1.6-2.3); Potassium 3.8 mmol/L (3.5-5.1); Total Bilirubin 0.8 mg/dL (0.2-1.3); Total Protein 6.9 g/dL (6.3-8.2)
[2022-09-30] MEDS ORDERED: cefTRIAXone IN SWFI 1,000 MG/10 ML SYRINGE IVP STA (18:54)
[2022-09-30] MEDS ORDERED: AZITHROMYCIN 500 MG in SODIUM CHLORIDE 0.9% 250 ML IVPB STA (18:55)
[2022-09-30 19:01] LABS: INR 1.1 (<1.2); Partial Thromboplastin Time 22.3 sec (22.0-30.0); Prothrombin Time 11.6 sec (9.0-12.0)
[2022-09-30 19:04] LABS: Anisocytosis Slight; Basophils # (A) 0.1 k/uL (0-0.2); Basophils % (A) 1 %; Eosinophils # (A) 0.1 k/uL (0-0.7); Eosinophils % (A) 1 %; HCT 27.4 % (34.0-46.0); HGB 7.5 gm/dL (11.4-16.0); Hypochromasia Marked; Lymphocytes % (A) 19 %; MCH 19.5 pg (25.0-35.0); MCHC 27.4 g/dL (31.0-37.0); MCV 71.4 fL (80.0-100.0); Microcytosis Marked; Monocytes # (A) 0.8 k/uL (0-1.0); Monocytes % (A) 8 %; Neutrophils # (A) 7.2 k/uL (1.3-7.7); Neutrophils % (A) 68 %; Platelet Count 190 k/uL (150-450); Poikilocytosis Moderate; RBC 3.85 m/uL (3.80-5.40); RDW 18.9 % (11.5-15.5); WBC 10.7 k/uL (3.8-10.6)
[2022-09-30] MEDS ORDERED: ONDANSETRON 4 MG/2 ML VIAL IM STA (19:36)
[2022-10-01 00:40] LABS: Bacteria,Urine Moderate /hpf; Hyaline Casts,Urine 3 /lpf (0-2); Mucus,Urine Rare /hpf; RBC,Urine 2 /hpf (0-5); Squamous Epithelial Cell,Urine 4 /hpf (0-4); WBC,Urine 3 /hpf (0-5)
[2022-10-01 00:46] LABS: Anisocytosis Slight; HCT 28.7 % (34.0-46.0); HGB 7.8 gm/dL (11.4-16.0); Hypochromasia Marked; MCH 20.1 pg (25.0-35.0); MCHC 27.2 g/dL (31.0-37.0); MCV 73.8 fL (80.0-100.0); Mean Platelet Volume 10.8; Microcytosis Moderate; Platelet Count 175 k/uL (150-450); Poikilocytosis Moderate; RBC 3.89 m/uL (3.80-5.40); RDW 18.7 % (11.5-15.5)
[2022-10-01 01:05] LABS: Appearance,Urine QNS (Clear)
[2022-10-01 01:06] LABS: Ketones,Urine Negative (Negative); Leukocyte Esterase,Urine Negative (Negative)
[2022-10-01 01:29] VITALS: BP 113/71; PULSE 60; RESP 26
[2022-10-01 02:29] LABS: Band Neutrophils % 4 %; Eosinophils # (M) 0.12 k/uL (0-0.7); Lymphocytes # (M) 2.22 k/uL (1.0-4.8); Monocytes # (M) 0.82 k/uL (0-1.0); Neutrophils % (M) 71 %; Nucleated Red Blood Cells 3 /100 WBC (0-0); Total Cells Counted 200; WBC 11.7 k/uL (3.8-10.6)
[2022-10-01 02:30] LABS: Polychromasia Present
[2022-10-01 02:31] LABS: Large Platelets Present
== END 2022-10-01 01:38 | disposition other institution (70) ==
LOC: EC 17:06
DX: J44.1 Chronic obstructive pulmonary disease with (acute) exacerbation (principal); K92.2 Gastrointestinal hemorrhage, unspecified; R09.02 Hypoxemia; D64.9 Anemia, unspecified; J90 Pleural effusion, not elsewhere classified; J18.9 Pneumonia, unspecified organism; I48.91 Unspecified atrial fibrillation; I50.9 Heart failure, unspecified; Z87.891 Personal history of nicotine dependence; Z20.822 Contact with and (suspected) exposure to COVID-19; Z79.82 Long term (current) use of aspirin; Z79.899 Other long term (current) drug therapy; Z88.0 Allergy status to penicillin; Z88.1 Allergy status to other antibiotic agents; Z88.5 Allergy status to narcotic agent; Z88.8 Allergy status to other drugs, medicaments and biological substances
CPT/HCPCS: 36415; 93005; 86900; 86901; 85379; 83880; 80053; 83605; 83735; 84484; 85025; 85610; 85730; 86850; 82272; 87040; 87502; 87635; 71046; 99291; 96365; 96361 ×6; J2405; J0456; J0696; J3010

== ENCOUNTER 2022-10-07 00:52 | Inpatient (IN) | payer MEDICARE, OTHER ==
[2022-10-07 02:00] LABS: Albumin 3.5 g/dL (3.5-5.0); Calcium 8.3 mg/dL (8.4-10.2); Potassium 4.6 mmol/L (3.5-5.1); Total Bilirubin 0.8 mg/dL (0.2-1.3); Total Protein 6.4 g/dL (6.3-8.2)
[2022-10-07 02:04] LABS: Anisocytosis Moderate; Basophils % (A) 1 %; Eosinophils # (A) 0.1 k/uL (0-0.7); Eosinophils % (A) 2 %; HGB 8.5 gm/dL (11.4-16.0); Hypochromasia Marked; Lymphocytes # (A) 1.4 k/uL (1.0-4.8); Lymphocytes % (A) 17 %; MCH 21.3 pg (25.0-35.0); MCHC 29.1 g/dL (31.0-37.0); MCV 73.3 fL (80.0-100.0); Mean Platelet Volume 11.3; Microcytosis Marked; Monocytes # (A) 0.7 k/uL (0-1.0); Monocytes % (A) 8 %; Neutrophils # (A) 5.7 k/uL (1.3-7.7); Neutrophils % (A) 70 %; Platelet Count 195 k/uL (150-450); Poikilocytosis Marked; RBC 3.96 m/uL (3.80-5.40); RDW 20.8 % (11.5-15.5); WBC 8.1 k/uL (3.8-10.6)
[2022-10-07 02:10] LABS: INR 1.2 (<1.2); Partial Thromboplastin Time 25.2 sec (22.0-30.0); Prothrombin Time 12.2 sec (9.0-12.0)
--- NOTE | 2022-10-07 02:20 | XR ---
EXAMINATION TYPE: XR chest 2V DATE OF EXAM: 10/07/2022 COMPARISON: 09/30/2010 HISTORY: Short of breath TECHNIQUE: 2 views FINDINGS: There is blunting right cuspid angle with infiltrate at the right lung base. Heart is enlar ged. Left lung is fairly clear. No heart failure. Bony thorax is intact. IMPRESSION: There is right lower lobe pneumonia and right pleural effusion which is increased compare d to old exam. No heart failure. Cardiomegaly.
--- NOTE | 2022-10-07 02:26 | ED ---
General Adult HPI - General Chief complaint: Shortness of Breath Stated complaint: Difficulty Breathing Time Seen by Provider: 10/07/22 00:59 Source: patient, EMS Mode of arrival: EMS Limitations: no limitations - History of Present Illness Initial comments: This is a 66-year-old female with a past medical history including COPD, CHF with recent admission to the hospital and recent discharge presents emergency department via EMS for increasing shortness of breath. The patient stated that she is on 4 L of nasal cannula oxygen and stated that she had increasing terms of breath throughout the day worsening tonight. The patient stated that she felt as if she could not catch her breath. The patient did state that she was improving on discharge from the hospital last week but stated that she has not improved over the last several days. The patient denied any new fevers or chills as well as any new coughing. The patient denied any other acute pain or distress at this time but was having tachypnea and moderate respiratory distress. - Related Data Home Medications Medication Instructions Recorded Confirmed Albuterol Sulfate [Ventolin HFA] 2 puff INHALATION RT-Q6H PRN 09/30/20 09/30/22 Pantoprazole Sodium [Protonix] 40 mg PO BID 09/30/20 09/30/22 busPIRone HCl [Buspar] 10 mg PO TID PRN 09/30/20 09/30/22 ALPRAZolam [Xanax] 0.5 mg PO DAILY PRN 09/30/22 09/30/22 Aspirin EC [Ecotrin Low Dose] 81 mg PO DAILY 09/30/22 09/30/22 Biotin 5 mg PO DAILY 09/30/22 09/30/22 Bumetanide [BUMEX] 2 mg PO BID 09/30/22 09/30/22 Cholecalciferol [Vitamin D3 (25 25 mcg PO DAILY 09/30/22 09/30/22 Mcg = 1000 Iu)] Clopidogrel [Plavix] 75 mg PO DAILY 09/30/22 09/30/22 Cyanocobalamin [Vitamin B-12] 500 mcg PO DAILY 09/30/22 09/30/22 Dapagliflozin Propanediol [Farxiga] 10 mg PO DAILY 09/30/22 09/30/22 Dicyclomine [Bentyl] 10 mg PO BID PRN 09/30/22 09/30/22 Escitalopram [Lexapro] 10 mg PO DAILY 09/30/22 09/30/22 Fluticasone/Umeclidin/Vilanter 1 puff INHALATION RT-DAILY 09/30/22 09/30/22 [Bipinleterra Ellipta 100-62.5-25] Ipratropium-Albuterol Nebulize 3 ml INHALATION RT-Q6H PRN 09/30/22 09/30/22 [Duoneb 0.5 mg-3 mg/3 ml Soln] Isosorbide Mononitrate ER [Imdur] 30 mg PO DAILY 09/30/22 09/30/22 Losartan Potassium [Cozaar] 25 mg PO DAILY 09/30/22 09/30/22 Magnesium 250 mg PO DAILY 09/30/22 09/30/22 Metoprolol Succinate [Toprol XL] 200 mg PO DAILY 09/30/22 09/30/22 Mirtazapine [Remeron] 45 mg PO HS 09/30/22 09/30/22 Potassium Chloride [Klor-Con M10] 10 meq PO BID 09/30/22 09/30/22 Rosuvastatin [Crestor] 20 mg PO DAILY 09/30/22 09/30/22 Spironolactone [Aldactone] 25 mg PO DAILY 09/30/22 09/30/22 Sucralfate [Carafate] 1 gm PO ACHS 09/30/22 09/30/22 Tiadylt Er 360 Mg 360 mg PO DAILY 09/30/22 09/30/22 Zinc Gluconate [Zinc] 50 mg PO DAILY 09/30/22 09/30/22 Allergies Allergy/AdvReac Type Severity Reaction Status Date / Time amoxicillin [From Augmentin] Allergy Unknown Verified 10/07/22 01:02 clavulanic acid Allergy Unknown Verified 10/07/22 01:02 [From Augmentin] codeine Allergy Unknown Verified 10/07/22 01:02 metformin Allergy Nausea & Verified 10/07/22 01:02 Vomiting Tetracyclines Allergy Unknown Verified 10/07/22 01:02 Review of Systems ROS Statement: Those systems with pertinent positive or pertinent negative responses have been documented in the HPI. ROS Other: All systems not noted in ROS Statement are negative. 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 Past Psychological History: No Psychological Hx Reported Smoking Status: Former smoker Past Alcohol Use History: None Reported Past Drug Use History: None Reported - Past Family History Father Family Medical History: Myocardial Infarction (ME), Rheumatoid Arthritis (RA) General Exam Limitations: no limitations General appearance: alert, in distress (In moderate respiratory distress) Head exam: Present: atraumatic, normocephalic, normal inspection Eye exam: Present: normal appearance, PERRL Pupils: Present: normal accommodation ENT exam: Present: normal exam, normal oropharynx Neck exam: Present: normal inspection Respiratory exam: Present: other (Tachypnea without any wheezing or rhonchi heard) Cardiovascular Exam: Present: regular rate, normal rhythm, normal heart sounds GI/Abdominal exam: Present: soft, normal bowel sounds Extremities exam: Present: normal inspection, full ROM Back exam: Present: normal inspection, full ROM Neurological exam: Present: alert, oriented X3, CN II-XII intact Psychiatric exam: Present: normal affect, normal mood Skin exam: Present: warm, dry Course Vital Signs 10/07/22 10/07/22 10/07/22 00:55 01:02 01:13 Temperature 98.2 F Pulse Rate 51 L 55 L Respiratory 26 H 26 H 26 H Rate Blood Pressure 99/66 105/58 O2 Sat by Pulse 96 97 Oximetry 10/07/22 02:01 Temperature Pulse Rate 53 L Respiratory Rate Blood Pressure 90/61 O2 Sat by Pulse Oximetry EKG Findings - EKG Comments: EKG Findings:: An EKG was obtained and was interpreted by myself showing a rate of 53, QRS duration of 90 and QTC of 439. This EKG showed a junctional rhythm with no ST segment elevation or depression noted. Medical Decision Making - Medical Decision Making Was pt. sent in by a medical professional or institution? @ -No Did you speak to anyone other than the patient for history? @ -EMS Did you review nursing and triage notes? @ -Nursing triage notes were reviewed Were old charts reviewed? @ -Yes, previous hospitalization records were reviewed Differential Diagnosis? @ -COPD exacerbation, asthma exacerbation, CHF exacerbation, ACS, PE, pneumothorax, pneumonia EKG interpreted by me (3pts min.)? @ -As above X-rays interpreted by me (1pt min.)? @ -Chest x-ray was obtained and was interpreted by myself. Chest x-ray showed right lower lobe pneumonia and right pleural effusion which is increased exam. There is no heart failure. There is no cardiac medically. CT interpreted by me (1pt min.)? @ -CTA of the chest was obtained because the patient's d-dimer was elevated. CT of the chest showed no evidence of PE but there was cardiomegaly. There is moderate pulmonary infiltrates and atelectasis in the right middle lobe and right lower lobe. There was moderate right pleural effusion. U/S interpreted by me (1pt. min.)? @ -[none] What testing was considered but not performed? (CT, X-rays, U/S, labs)? Why? @None What meds were considered but not given? Why? @ -[none] Did you discuss the management of the patient with other professionals? @ -Yes, the accepting admitting physician Did you reconcile home meds? @ -[none] Was smoking cessation discussed for >3mins.? @ -[none] Was critical care preformed (if so, how long)? @ -[none] Were there social determinants of health that impacted care today? How? (Homelessness, low income, unemployed, alcoholism, drug addiction, transportation, low edu. Level, literacy, decrease access to med. care, usp, rehab)? @ -No Was there de-escalation of care discussed even if they declined? (Discuss DNR or withdrawal of care, Hospice)? @ -No What co-morbidities impacted this encounter? (DM, HTN, Smoking, COPD, CAD, Cancer, CVA, Hep., AIDS, mental health diagnosis, sleep apnea, morbid obesity)? @ -Hypertension, diabetes, COPD Was patient admitted / discharged? @ -The patient was seen and evaluated in emergency department. Physical exam, the patient was resting in bed without any acute distress. Vital signs admission were stable and within normal limits. Vital signs did not show any signs of fever or respiratory distress. The patient did have some mild tachypnea however but refused BiPAP at this time. Laboratory workup was obtained and was largely within normal limits however d-dimer was elevated. Urinalysis was obtained however the patient did not complain of any urinary symptoms and was significantly contaminated with 53 squamous cells. It was unlikely that the patient had a UTI at this time therefore she will not be treated for UTI. Both chest x-ray and CTA of the chest were obtained and showed consistency with healthcare associated pneumonia versus CHF exacerbation. The patient on reevaluation stated that she had improvement of her symptoms after she was given a breathing treatment by EMS. The patient was started on IV antibiotics for healthcare associated pneumonia. The patient did require further inpatient management and the patient was accepted by the covering physician, Dr. Mccoy. The patient was admitted in stable condition. Undiagnosed new problem with uncertain prognosis? @ -[none] Drug Therapy requiring intensive monitoring for toxicity (Heparin, Nitro, Insulin, Cardizem)? @ -[none] Were any procedures done? @ -[none] Diagnosis/symptom? @ -Healthcare associated pneumonia Acute, or Chronic, or Acute on Chronic? @ -Acute Uncomplicated (without systemic symptoms) or Complicated (systemic symptoms)? @ -Complicated Side effects of treatment? @ -[none] Exacerbation, Progression, or Severe Exacerbation] @ -[no] Poses a threat to life or bodily function? @ -[no] - Lab Data Result diagrams: 10/07/22 01:21 10/07/22 01:21 Lab Results 10/07/22 10/07/22 10/07/22 Range/Units 01:21 01:21 01:21 WBC 8.1 (3.8-10.6) k/uL RBC 3.96 (3.80-5.40) m/uL Hgb 8.5 L (11.4-16.0) gm/dL Hct 29.0 L (34.0-46.0) % MCV 73.3 L (80.0-100.0) fL MCH 21.3 L (25.0-35.0) pg MCHC 29.1 L (31.0-37.0) g/dL RDW 20.8 H (11.5-15.5) % Plt Count 195 (150-450) k/uL MPV 11.3 Neutrophils % 70 % Lymphocytes % 17 % Monocytes % 8 % Eosinophils % 2 % Basophils % 1 % Neutrophils # 5.7 (1.3-7.7) k/uL Lymphocytes # 1.4 (1.0-4.8) k/uL Monocytes # 0.7 (0-1.0) k/uL Eosinophils # 0.1 (0-0.7) k/uL Basophils # 0.0 (0-0.2) k/uL Hypochromasia Marked Poikilocytosis Marked Anisocytosis Moderate Microcytosis Marked PT 12.2 H (9.0-12.0) sec INR 1.2 H (<1.2) APTT 25.2 (22.0-30.0) sec D-Dimer 2.55 H (<0.60) mg/L FEU Sodium (137-145) mmol/L Potassium (3.5-5.1) mmol/L Chloride (98-107) mmol/L Carbon Dioxide (22-30) mmol/L Anion Gap mmol/L BUN (7-17) mg/dL Creatinine (0.52-1.04) mg/dL Est GFR (CKD-EPI)AfAm (>60 ml/min/1.73 sqM) Est GFR (CKD-EPI)NonAf (>60 ml/min/1.73 sqM) Glucose (74-99) mg/dL Calcium (8.4-10.2) mg/dL Magnesium (1.6-2.3) mg/dL Total Bilirubin (0.2-1.3) mg/dL AST (14-36) U/L ALT (4-34) U/L Alkaline Phosphatase (38-126) U/L Troponin I (0.000-0.034) ng/mL NT-Pro-B Natriuret Pep pg/mL Total Protein (6.3-8.2) g/dL Albumin (3.5-5.0) g/dL Urine Color Dark Yellow Urine Appearance Turbid H (Clear) Urine pH 5.0 (5.0-8.0) Ur Specific [place] 1.025 (1.001-1.035) Urine Protein 1+ H (Negative) Urine Glucose (UA) 3+ H (Negative) Urine Ketones Negative (Negative) Urine Blood Moderate H (Negative) Urine Nitrite Negative (Negative) Urine Bilirubin Negative (Negative) Urine Urobilinogen 4.0 (<2.0) mg/dL Ur Leukocyte Esterase Large H (Negative) Urine RBC 115 H (0-5) /hpf Urine WBC 56 H (0-5) /hpf Urine WBC Clumps Many H (None) /hpf Ur Squamous Epith Cells 53 H (0-4) /hpf Urine Bacteria Occasional H (None) /hpf Hyaline Casts 124 H (0-2) /lpf Urine Mucus Many H (None) /hpf 10/07/22 10/07/22 10/07/22 Range/Units 01:21 01:21 01:21 WBC (3.8-10.6) k/uL RBC (3.80-5.40) m/uL Hgb (11.4-16.0) gm/dL Hct (34.0-46.0) % MCV (80.0-100.0) fL MCH (25.0-35.0) pg MCHC (31.0-37.0) g/dL RDW (11.5-15.5) % Plt Count (150-450) k/uL MPV Neutrophils % % Lymphocytes % % Monocytes % % Eosinophils % % Basophils % % Neutrophils # (1.3-7.7) k/uL Lymphocytes # (1.0-4.8) k/uL Monocytes # (0-1.0) k/uL Eosinophils # (0-0.7) k/uL Basophils # (0-0.2) k/uL Hypochromasia Poikilocytosis Anisocytosis Microcytosis PT (9.0-12.0) sec INR (<1.2) APTT (22.0-30.0) sec D-Dimer (<0.60) mg/L FEU Sodium 136 L (137-145) mmol/L Potassium 4.6 (3.5-5.1) mmol/L Chloride 98 (98-107) mmol/L Carbon Dioxide 30 (22-30) mmol/L Anion Gap 8 mmol/L BUN 21 H (7-17) mg/dL Creatinine 1.07 H (0.52-1.04) mg/dL Est GFR (CKD-EPI)AfAm 63 (>60 ml/min/1.73 sqM) Est GFR (CKD-EPI)NonAf 55 (>60 ml/min/1.73 sqM) Glucose 110 H (74-99) mg/dL Calcium 8.3 L (8.4-10.2) mg/dL Magnesium 2.0 (1.6-2.3) mg/dL Total Bilirubin 0.8 (0.2-1.3) mg/dL AST 31 (14-36) U/L ALT 50 H (4-34) U/L Alkaline Phosphatase 109 (38-126) U/L Troponin I <0.012 (0.000-0.034) ng/mL NT-Pro-B Natriuret Pep 717 pg/mL Total Protein 6.4 (6.3-8.2) g/dL Albumin 3.5 (3.5-5.0) g/dL Urine Color Urine Appearance (Clear) Urine pH (5.0-8.0) Ur Specific [place] (1.001-1.035) Urine Protein (Negative) Urine Glucose (UA) (Negative) Urine Ketones (Negative) Urine Blood (Negative) Urine Nitrite (Negative) Urine Bilirubin (Negative) Urine Urobilinogen (<2.0) mg/dL Ur Leukocyte Esterase (Negative) Urine RBC (0-5) /hpf Urine WBC (0-5) /hpf Urine WBC Clumps (None) /hpf Ur Squamous Epith Cells (0-4) /hpf Urine Bacteria (None) /hpf Hyaline Casts (0-2) /lpf Urine Mucus (None) /hpf Disposition Clinical Impression: HCAP (healthcare-associated pneumonia), Shortness of breath Disposition: ADMITTED IP TO THIS [facility] Condition: Stable Is patient prescribed a controlled substance at d/c from ED?: No Referrals: None,Stated [Primary Care Provider] - 1-2 days Time of Disposition: 04:00 Decision to Admit Reason: Admit from EC Decision Date: 10/07/22 Decision Time: 04:00
[2022-10-07 03:34] LABS: Appearance,Urine Turbid (Clear); Bacteria,Urine Occasional /hpf; Bilirubin,Urine Negative (Negative); Blood,Urine Moderate (Negative); Color,Urine Dark Yellow; Glucose,Urine (UA) 3+ (Negative); Hyaline Casts,Urine 124 /lpf (0-2); Ketones,Urine Negative (Negative); Leukocyte Esterase,Urine Large (Negative); Mucus,Urine Many /hpf; Nitrite,Urine Negative (Negative); Protein,Urine 1+ (Negative); RBC,Urine 115 /hpf (0-5); Specific Gravity,Urine 1.025 (1.001-1.035); Squamous Epithelial Cell,Urine 53 /hpf (0-4); WBC,Urine 56 /hpf (0-5)
--- NOTE | 2022-10-07 03:34 | CT ---
EXAMINATION TYPE: CT angio chest DATE OF EXAM: 10/07/2022 COMPARISON: None HISTORY: SOB, R/O PE CT DLP: 593.3 mGycm Automated exposure control for dose reduction was used. CONTRAST: Performed with IV Contrast, patient injected with 80 mL of Isovue 370. There are Three-D postprocessed images. Images obtained from the thoracic inlet to the diaphragm with the IV contrast. There is a moderate right pleural effusion. Heart is slightly enlarged. There is infiltrate and atele ctasis at the right lung base. The left lung is fairly clear. No evidence of left pleural effusion. No evidence of filling defect in the pulmonary arteries. Thoracic aorta is intact. No aneurysm or dis section. The thoracic spine is intact. No compression fracture. Sternum is intact. IMPRESSION: Cardiomegaly. Moderate pulmonary infiltrates and atelectasis in the right middle lobe and right lower lobe. Moderate right pleural effusion. No evidence of pulmonary embolism.
[2022-10-07] MEDS ORDERED: VANCOMYCIN 1,750 MG in SODIUM CHLORIDE 0.9% 500 ML 500 ML IVPB STA (04:02)
[2022-10-07] MEDS ORDERED: CEFEPIME 2 GM in SODIUM CHLORIDE 0.9% 100 ML IVPB STA (04:02)
[2022-10-07] MEDS ORDERED: VANCOMYCIN IV PER PHARMACY 1 EACH MISC MISCELLANE PRN ×2 (04:06→09:53)
[2022-10-07] MEDS ORDERED: NALOXONE 0.4 MG/ML 1 ML VIAL IV PRN (04:41)
[2022-10-07] MEDS ORDERED: MORPHINE SULFATE 4 MG/ML SYRINGE IVP STA (05:04)
[2022-10-07] MEDS ORDERED: DICYCLOMINE 10 MG CAP PO PRN (05:52)
[2022-10-07] MEDS ORDERED: busPIRone HCl 10 MG TAB PO PRN (05:52)
[2022-10-07] MEDS ORDERED: IPRATROPIUM-ALBUTEROL 3 ML NEB INHALATION PRN (05:52)
[2022-10-07] MEDS ORDERED: PANTOPRAZOLE 40 MG/10 ML VIAL IVP ONE (06:06)
--- NOTE | 2022-10-07 06:27 | P.HPIM ---
History of Present Illness H&P Date: 10/07/22 Chief Complaint: shortness of breath 66 year old female with afib not on anticoagulation , COPD , diastolic CHF patient was discharge from the hospital about a week ago, she felt well for couple days, and then started having progressive SOB and diffuse body aches over the past couple days. she felt that she could not breath today and called EMS to bring her in. she still has 1 pill of levaquin left from his discharge prescription she reports severe shortness of breath, chronic occasional wheezing, positive orthopnea but no leg edema, PNDs,. she has chronic wet cough not improving , she was recently hospitalized for acute COPD exacerbationand pneumonia . she is on 4 L Oxygen at home. she still having sore throat and feels congested. she is having chills but no fever. she reports that breathing hurts all her chest and back she also reports occasional blood in her stool due to hemorrhoids . she denies any abd pain , nausea or vomiting, denies any urinary changes. work up in the ED elevated Ddimer , CTA of the chest no acute PE, but showed multifocal in filterates and moderate right pleural effusion acute respiratory viral panel negative hemoglobin significantly dropped from 18.6 to 8.5 over 1 year , again she reports occasional blood in her stool due to hemorrhoids . she is not on blood thinners at this time, but does take plavix upon reviewing medical records, she was seen in our ED about a week ago , and was transferred to another facility due to no GI coverage, and thats when she was first noted to have a significant drop in her hemoglobin down to 7.6 form 18 a year ago , and she was noticed to have a bloody bowel movement while in the ED Review of Systems Pertinent positives as noted in HPI. 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 Past Psychological History: No Psychological Hx Reported Smoking Status: Former smoker Past Alcohol Use History: None Reported Past Drug Use History: None Reported - Past Family History Father Family Medical History: Myocardial Infarction ([place]), Rheumatoid Arthritis (RA) Medications and Allergies Home Medications Medication Instructions Recorded Confirmed Type Albuterol Sulfate [Ventolin HFA] 2 puff INHALATION RT-Q6H PRN 09/30/20 09/30/22 History Pantoprazole Sodium [Protonix] 40 mg PO BID 09/30/20 09/30/22 History busPIRone HCl [Buspar] 10 mg PO TID PRN 09/30/20 09/30/22 History ALPRAZolam [Xanax] 0.5 mg PO DAILY PRN 09/30/22 09/30/22 History Aspirin EC [Ecotrin Low Dose] 81 mg PO DAILY 09/30/22 09/30/22 History Biotin 5 mg PO DAILY 09/30/22 09/30/22 History Bumetanide [BUMEX] 2 mg PO BID 09/30/22 09/30/22 History Cholecalciferol [Vitamin D3 (25 25 mcg PO DAILY 09/30/22 09/30/22 History Mcg = 1000 Iu)] Clopidogrel [Plavix] 75 mg PO DAILY 09/30/22 09/30/22 History Cyanocobalamin [Vitamin B-12] 500 mcg PO DAILY 09/30/22 09/30/22 History Dapagliflozin Propanediol [Farxiga] 10 mg PO DAILY 09/30/22 09/30/22 History Dicyclomine [Bentyl] 10 mg PO BID PRN 09/30/22 09/30/22 History Escitalopram [Lexapro] 10 mg PO DAILY 09/30/22 09/30/22 History Fluticasone/Umeclidin/Vilanter 1 puff INHALATION RT-DAILY 09/30/22 09/30/22 History [Trelegy Ellipta 100-62.5-25] Ipratropium-Albuterol Nebulize 3 ml INHALATION RT-Q6H PRN 09/30/22 09/30/22 Hi story [Duoneb 0.5 mg-3 mg/3 ml Soln] Isosorbide Mononitrate ER [Imdur] 30 mg PO DAILY 09/30/22 09/30/22 History Losartan Potassium [Cozaar] 25 mg PO DAILY 09/30/22 09/30/22 History Magnesium 250 mg PO DAILY 09/30/22 09/30/22 History Metoprolol Succinate [Toprol XL] 200 mg PO DAILY 09/30/22 09/30/22 History Mirtazapine [Remeron] 45 mg PO HS 09/30/22 09/30/22 History Potassium Chloride [Klor-Con M10] 10 meq PO BID 09/30/22 09/30/22 History Rosuvastatin [Crestor] 20 mg PO DAILY 09/30/22 09/30/22 History Spironolactone [Aldactone] 25 mg PO DAILY 09/30/22 09/30/22 History Sucralfate [Carafate] 1 gm PO ACHS 09/30/22 09/30/22 History Tiadylt Er 360 Mg 360 mg PO DAILY 09/30/22 09/30/22 History Zinc Gluconate [Zinc] 50 mg PO DAILY 09/30/22 09/30/22 History Allergies Allergy/AdvReac Type Severity Reaction Status Date / Time amoxicillin [From Augmentin] Allergy Unknown Verified 10/07/22 01:02 clavulanic acid Allergy Unknown Verified 10/07/22 01:02 [From Augmentin] codeine Allergy Unknown Verified 10/07/22 01:02 metformin Allergy Nausea & Verified 10/07/22 01:02 Vomiting Tetracyclines Allergy Unknown Verified 10/07/22 01:02 Physical Exam Vitals: Vital Signs Temp Pulse Resp BP Pulse Ox 10/07/22 04:50 57 L 24 106/54 97 10/07/22 02:01 53 L 90/61 10/07/22 01:13 26 H 10/07/22 01:02 55 L 26 H 105/58 97 10/07/22 00:55 98.2 F 51 L 26 H 99/66 96 Intake and Output 10/06/22 10/06/22 10/07/22 14:59 22:59 06:59 Other: Weight 102.058 kg Results CBC & Chem 7: 10/07/22 01:21 10/07/22 01:21 Labs: Abnormal Lab Results - Last 24 Hours (Table) 10/07/22 10/07/22 10/07/22 Range/Units 01:21 01:21 01:21 Hgb 8.5 L (11.4-16.0) gm/dL Hct 29.0 L (34.0-46.0) % MCV 73.3 L (80.0-100.0) fL MCH 21.3 L (25.0-35.0) pg MCHC 29.1 L (31.0-37.0) g/dL RDW 20.8 H (11.5-15.5) % PT 12.2 H (9.0-12.0) sec INR 1.2 H (<1.2) D-Dimer 2.55 H (<0.60) mg/L FEU Sodium (137-145) mmol/L BUN (7-17) mg/dL Creatinine (0.52-1.04) mg/dL Glucose (74-99) mg/dL Calcium (8.4-10.2) mg/dL ALT (4-34) U/L Urine Appearance Turbid H (Clear) Urine Protein 1+ H (Negative) Urine Glucose (UA) 3+ H (Negative) Urine Blood Moderate H (Negative) Ur Leukocyte Esterase Large H (Negative) Urine RBC 115 H (0-5) /hpf Urine WBC 56 H (0-5) /hpf Urine WBC Clumps Many H (None) /hpf Ur Squamous Epith Cells 53 H (0-4) /hpf Urine Bacteria Occasional H (None) /hpf Hyaline Casts 124 H (0-2) /lpf Urine Mucus Many H (None) /hpf 10/07/ Range/Units 01:21 Hgb (11.4-16.0) gm/dL Hct (34.0-46.0) % MCV (80.0-100.0) fL MCH (25.0-35.0) pg MCHC (31.0-37.0) g/dL RDW (11.5-15.5) % PT (9.0-12.0) sec INR (<1.2) D-Dimer (<0.60) mg/L FEU Sodium 136 L (137-145) mmol/L BUN 21 H (7-17) mg/dL Creatinine 1.07 H (0.52-1.04) mg/dL Glucose 110 H (74-99) mg/dL Calcium 8.3 L (8.4-10.2) mg/dL ALT 50 H (4-34) U/L Urine Appearance (Clear) Urine Protein (Negative) Urine Glucose (UA) (Negative) Urine Blood (Negative) Ur Leukocyte Esterase (Negative) Urine RBC (0-5) /hpf Urine WBC (0-5) /hpf Urine WBC Clumps (None) /hpf Ur Squamous Epith Cells (0-4) /hpf Urine Bacteria (None) /hpf Hyaline Casts (0-2) /lpf Urine Mucus (None) /hpf Assessment and Plan Assessment: progressive exertional dyspnea microcytic anemia , rule out GI bleed acute mild COPD exacerbation acute diastolic CHF exacerbation permanent afib not on anticoagulation due to GI bleed plan D dimer positive , CTA lungs no acute PE, but showed multifocal infilterates, and moderate right pleural effusion IV diuretics lasix 40 mg BID PO systemic steroids azithromycin daily X3 duonebs scheduled and PRN resume home inhalers counseled to quit smoking , patient claims she quit 1 year ago monitor hemoglobin q6hr general surgery consult for GI bleed protonix IVP 80 mg , then 40 mg BID full liquid diet resume cardiac meds, continue with plavix unless hemoglobin drops any further , or patient has further episode of bleeding chronic condition hypertension losartan and metoprolol resume isosorbide hyperlipidemia resume statin check acute respiratory viral panel full code DVT PPX mechanical dueto possible GI bleed
[2022-10-07] MEDS ORDERED: PANTOPRAZOLE 40 MG TABLET PO SCH (07:30)
[2022-10-07] MEDS: IPRATROPIUM-ALBUTEROL 3 ML NEB INHALATION SCH ×4 (07:46→20:23)
[2022-10-07] MEDS ORDERED: SYMBICORT 80-4.5 MCG INHALER INHALATION SCH (08:00)
[2022-10-07] MEDS ORDERED: predniSONE 20 MG TAB PO SCH (09:00)
[2022-10-07] MEDS ORDERED: CLOPIDOGREL 75 MG TAB PO SCH (09:00)
[2022-10-07] MEDS ORDERED: BUMETANIDE 1 MG TAB PO SCH (09:00)
[2022-10-07] MEDS ORDERED: NON FORMULARY DRUG (Biotin [Biotin] 5 MG Capsule) PO SCH (09:00)
[2022-10-07] MEDS ORDERED: AZITHROMYCIN 500 MG TAB PO SCH (09:00)
[2022-10-07] MEDS ORDERED: APIXABAN 5 MG TAB PO SCH (09:00)
[2022-10-07] MEDS: ISOSORBIDE MONONITRATE ER 30 MG TAB.ER.24H PO SCH (09:25)
[2022-10-07] MEDS: ATORVASTATIN 40 MG TAB PO SCH (09:25)
[2022-10-07] MEDS: ASPIRIN 81 MG PO SCH (09:25)
[2022-10-07] MEDS: FUROSEMIDE 10 MG/ML 4 ML VIAL IV SCH ×2 (09:26→21:31)
[2022-10-07] MEDS: ESCITALOPRAM 10 MG TAB PO SCH (09:26)
[2022-10-07] MEDS: SPIRONOLACTONE 25 MG TAB PO SCH (09:26)
[2022-10-07] MEDS: METOPROLOL SUCCINATE (ER) 100 MG TAB.ER.24H PO SCH (09:26)
[2022-10-07] MEDS: LOSARTAN 25 MG TAB PO SCH (09:26)
[2022-10-07] MEDS ORDERED: BENZOCAINE/MENTHOL LOZENG 1 EACH LOZENGE MUCOUS MEM PRN (09:50)
[2022-10-07] MEDS ORDERED: VANCOMYCIN 1,750 MG in SODIUM CHLORIDE 0.9% 500 ML 500 ML IVPB ONE (10:00)
[2022-10-07] MEDS ORDERED: MELATONIN 3 MG TABLET PO PRN (10:06)
[2022-10-07] MEDS ORDERED: ONDANSETRON 4 MG/2 ML VIAL IVP PRN (10:06)
[2022-10-07] MEDS ORDERED: HYDROcodone/APAP 5-325MG 1 EACH TAB PO PRN (10:06)
[2022-10-07] MEDS ORDERED: ACETAMINOPHEN TAB 325 MG TAB PO PRN (10:06)
--- NOTE | 2022-10-07 10:10 | P.PN ---
Subjective Progress Note Date: 10/07/22 Patient is a 66-year-old female with COPD and chronic hypoxic respiratory failure on 4 L nasal cannula, diastolic congestive heart failure, and atrial fibrillation on anticoagulation who presented to the ER secondary to diffuse body aches and shortness of breath. On arrival to the ER she was found to be cachectic With a respiratory rate of 26. Laboratory analysis demonstrated a hemoglobin of 8.5 (up from 7.8 on 09/30/22). BUN 21, creatinine 1.07. Urinalysis was contaminated and patient without complaints of dysuria. Influenza A/B/RSV/COVID-19 testing were negative. Chest x-ray showed right lower lobe pneumonia with right pleural effusion. She underwent CT of the chest which showed cardiomegaly, moderate pulmonary infiltrates and atelectasis in the right middle and lower lobes with a moderate right pleural effusion and no evidence of pulmonary embolism. She was given a dose of vancomycin and cefepime in the ER for probable pneumonia. Reaches for made for admission. Of note the patient was here on 09/30 and was transferred to [facility] secondary to probable GI bleed. She reports that they did not do a scope there but she had a scope earlier this year with an upper and lower. They have recommended a pill endoscopy which she has not yet completed. She reports she was diagnosed with pneumonia there and was taking an antibiotic and felt better for a few days and then again felt worse. 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 She is here visiting her son for the holidays. Patient seen and examined at bedside. She reports she feels slightly better than yesterday. She continues to have some chest discomfort with deep breathing and cough. She denies any nausea or vomiting. She is frustrated that she did not get scoped at [facility]. I informed her we will ask of records but that she likely could have an outpatient GI evaluation as her hemoglobin has remained able since 09/30. General: nontoxic, no distress, appears older than stated age, obese Derm: warm, dry Head: atraumatic, normocephalic, symmetric Eyes: EOMI, no lid lag, anicteric sclera Mouth: no lip lesion, mucus membranes moist Cardiovascular: S1S2 reg, no murmur, positive posterior tibial pulse bilateral, Lungs: Coarse breath sounds bilateral, no rhonchi, no rales , no accessory muscle use Abdominal: soft, nontender to palpation, no guarding, no appreciable organomegaly Ext: no gross muscle atrophy, no edema, no contractures Neuro: CN II-XI grossly intact, no focal neuro deficits Psych: Alert, oriented, appropriate affect CT chest as reviewed by myself reveals right sided lower lobe infiltrate, diffuse interstitial infiltrate, and moderate right sided pleural effusion. Assessment/Plan: Pneumonia, failed outpatient treatment Chronic Respiratory with hypoxia, 4L Acute exacerbation of COPD, mild - vanco and cefepime - consult pulmonary - sputum culture, procalitonin, legionella antigen - pulm hydeine - oral steroids, bronchdilators. 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 Objective - Vital Signs Vital signs: Vital Signs Temp 98.2 F 10/07/22 00:55 Pulse 66 10/07/22 09:34 Resp 18 10/07/22 09:34 BP 118/72 10/07/22 09:34 Pulse Ox 96 10/07/22 09:34 FiO2 Intake & Output 10/06/22 10/07/22 10/07/22 18:59 06:59 18:59 Weight 102.058 kg - Labs CBC & Chem 7: 10/07/22 01:21 10/07/22 01:21 Labs: Abnormal Lab Results - Last 24 Hours (Table) 10/07/22 10/07/22 10/07/22 Range/Units 01:21 01:21 01:21 Hgb 8.5 L (11.4-16.0) gm/dL Hct 29.0 L (34.0-46.0) % MCV 73.3 L (80.0-100.0) fL MCH 21.3 L (25.0-35.0) pg MCHC 29.1 L (31.0-37.0) g/dL RDW 20.8 H (11.5-15.5) % PT 12.2 H (9.0-12.0) sec INR 1.2 H (<1.2) D-Dimer 2.55 H (<0.60) mg/L FEU Sodium (137-145) mmol/L BUN (7-17) mg/dL Creatinine (0.52-1.04) mg/dL Glucose (74-99) mg/dL Calcium (8.4-10.2) mg/dL ALT (4-34) U/L Urine Appearance Turbid H (Clear) Urine Protein 1+ H (Negative) Urine Glucose (UA) 3+ H (Negative) Urine Blood Moderate H (Negative) Ur Leukocyte Esterase Large H (Negative) Urine RBC 115 H (0-5) /hpf Urine WBC 56 H (0-5) /hpf Urine WBC Clumps Many H (None) /hpf Ur Squamous Epith Cells 53 H (0-4) /hpf Urine Bacteria Occasional H (None) /hpf Hyaline Casts 124 H (0-2) /lpf Urine Mucus Many H (None) /hpf 10/07/ Range/Units 01:21 Hgb (11.4-16.0) gm/dL Hct (34.0-46.0) % MCV (80.0-100.0) fL MCH (25.0-35.0) pg MCHC (31.0-37.0) g/dL RDW (11.5-15.5) % PT (9.0-12.0) sec INR (<1.2) D-Dimer (<0.60) mg/L FEU Sodium 136 L (137-145) mmol/L BUN 21 H (7-17) mg/dL Creatinine 1.07 H (0.52-1.04) mg/dL Glucose 110 H (74-99) mg/dL Calcium 8.3 L (8.4-10.2) mg/dL ALT 50 H (4-34) U/L Urine Appearance (Clear) Urine Protein (Negative) Urine Glucose (UA) (Negative) Urine Blood (Negative) Ur Leukocyte Esterase (Negative) Urine RBC (0-5) /hpf Urine WBC (0-5) /hpf Urine WBC Clumps (None) /hpf Ur Squamous Epith Cells (0-4) /hpf Urine Bacteria (None) /hpf Hyaline Casts (0-2) /lpf Urine Mucus (None) /hpf
--- NOTE | 2022-10-07 11:45 | P.GSCN ---
History of Present Illness Consult date: 10/07/22 History of present illness: CHIEF COMPLAINT: Shortness of breath Reason for consult GI bleed HISTORY OF PRESENT ILLNESS: This is a 66-year-old female who presented to the hospital with complaints of worsening shortness of breath and is currently being treated for pneumonia. Patient reports passing bright red blood early this morning. She has been having rectal pain. Does have a history of hemorrhoids. Last week she reports having both black stools and bright red stools intermittently. Patient does have prior history of GI bleed. She reports her last EGD and colonoscopy were in November 2021 there was evidence of hemorrhoids. She was supposed to have capsule endoscopy which did not get completed. Patient was recently here [facility] with a GI bleed on 09/30 and required transfer to [facility] due to GI bleed. No endoscopies done at that time. Patient has Plavix listed as a home med. She reports that she has not been taking it since she's been having issues with GI bleeding. She has a known history of atrial fibrillation and had a watchman procedure done because she could not tolerate anticoagulation due to GI bleeding. Hemoglobin on admission 8.5 patient denies any abdominal pain. Denies any nausea or vomiting. PAST MEDICAL HISTORY: See list. PAST SURGICAL HISTORY: See list. MEDICATIONS: See list. ALLERGIES: See list. SOCIAL HISTORY: No illicit drug use. REVIEW OF SYSTEMS: CONSTITUTIONAL: Denies fever or chills. HEENT: Denies blurred vision, vision changes, or eye pain. Denies hemoptysis ENDOCRINE: Denies heat or cold intolerance. CARDIOVASCULAR: Denies chest pain or pressure. RESPIRATORY: No shortness of breath. GASTROINTESTINAL: Denies abdominal pain. Denies nausea or vomiting. NEURO: Denies history of seizures. PSYCH: No depression or suicidal ideation HEMATOLOGIC: Denies bleeding disorders. LYMPHATIC: The patient denies any lumps and bumps around the neck. GENITOURINARY: Denies any blood in urine or increased urinary frequency. MUSCULOSKELETAL: Denies myalgias. Denies joint swelling. Denies decreased range of motion beyond patients baseline. SKIN: Denies pruitis. Denies rash. PHYSICAL EXAM: VITAL SIGNS: Reviewed GENERAL: Well-developed in no acute distress. HEENT: No sclera icterus. Extraocular movements grossly intact. Moist buccal mucosa. Head is atraumatic, normocephalic. Hears conversational speech. No nasal drainage. NECK: Supple without lymphadenopathy. CHEST: Non-labored respirations and equal bilateral excursions. CARDIOVASCULAR: Palpable 2+ radial pulses. ABDOMEN: Soft. Nondistended. Nontender MUSCULOSKELETAL: No clubbing or cyanosis. NEUROLOGIC: No focal or lateralizing signs. Cranial nerves II through XII grossly intact. PSYCH: Appropriate affect. Alert and oriented to person, place and time. SKIN: Well perfused. Good skin turgor. Rectal: Patient does have evidence of a large external hemorrhoid LABORATORY DATA: WBC is 8.1 Hgb 8.5 platelets 195 INR 1.2 d-dimer 2.55 Sodium is 136 potassium 4.6 creatinine 1.07 Influenza A and B not detected, RSV not detected, COVID-19 detected IMAGING: Chest CTA cardiomegaly. Moderate pulmonary infiltrates and atelectasis in the right middle lobe and right lower lobe. Moderate right pleural effusion. No evidence of PE. ASSESSMENT: 1. Acute GI bleed with bright red blood per rectum and rectal pain 2. Microcytic anemia 3. History of hemorrhoids 4. Pneumonia 5. Acute COPD exacerbation 6. History of atrial fibrillation status post watchman procedure 7. History of hypertension PLAN: -Continue monitor for any signs or symptoms of bleeding -Continue monitor hemoglobin -Plavix discontinued -Tucks pads ordered for hemorrhoids -Continue PPI -Continue supportive -Further recommendations forthcoming per surgeon Physician Advertiser note has been reviewed by physician. Signing provider agrees with the documented findings, assessment, and plan of care. 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 Past Psychological History: No Psychological Hx Reported Smoking Status: Former smoker Past Alcohol Use History: None Reported Past Drug Use History: None Reported - Past Family History Father Family Medical History: Myocardial Infarction (HI), Rheumatoid Arthritis (RA) Medications and Allergies Home Medications Medication Instructions Recorded Confirmed Type Albuterol Sulfate [Ventolin HFA] 2 puff INHALATION RT-Q6H PRN 09/30/20 10/07/22 History Pantoprazole Sodium [Protonix] 40 mg PO BID 09/30/20 10/07/22 History busPIRone HCl [Buspar] 10 mg PO TID PRN 09/30/20 10/07/22 History ALPRAZolam [Xanax] 0.5 mg PO DAILY PRN 09/30/22 10/07/22 History Aspirin EC [Ecotrin Low Dose] 81 mg PO DAILY 09/30/22 10/07/22 History Biotin 5 mg PO DAILY 09/30/22 10/07/22 History Bumetanide [BUMEX] 2 mg PO BID 09/30/22 10/07/22 History Cholecalciferol [Vitamin D3 (25 25 mcg PO DAILY 09/30/22 10/07/22 History Mcg = 1000 Iu)] Clopidogrel [Plavix] 75 mg PO DAILY 09/30/22 10/07/22 History Cyanocobalamin [Vitamin B-12] 500 mcg PO DAILY 09/30/22 10/07/22 History Dapagliflozin Propanediol [Farxiga] 10 mg PO DAILY 09/30/22 10/07/22 History Dicyclomine [Bentyl] 10 mg PO BID PRN 09/30/22 10/07/22 History Escitalopram [Lexapro] 10 mg PO DAILY 09/30/22 10/07/22 History Fluticasone/Umeclidin/Vilanter 1 puff INHALATION RT-DAILY 09/30/22 10/07/22 History [Bipinleterra Ellipta 100-62.5-25] Ipratropium-Albuterol Nebulize 3 ml INHALATION RT-Q6H PRN 09/30/22 10/07/22 History [Duoneb 0.5 mg-3 mg/3 ml Soln] Isosorbide Mononitrate ER [Imdur] 30 mg PO DAILY 09/30/22 10/07/22 History Losartan Potassium [Cozaar] 25 mg PO DAILY 09/30/22 10/07/22 History Magnesium 250 mg PO DAILY 09/30/22 10/07/22 History Metoprolol Succinate [Toprol XL] 200 mg PO DAILY 09/30/22 10/07/22 History Mirtazapine [Remeron] 45 mg PO HS 09/30/22 10/07/22 History Potassium Chloride [Klor-Con M10] 10 meq PO BID 09/30/22 10/07/22 History Rosuvastatin [Crestor] 20 mg PO DAILY 09/30/22 10/07/22 History Spironolactone [Aldactone] 25 mg PO DAILY 09/30/22 10/07/22 History Sucralfate [Carafate] 1 gm PO ACHS 09/30/22 10/07/22 History Zinc Gluconate [Zinc] 50 mg PO DAILY 09/30/22 10/07/22 History Levofloxacin [Levaquin] 750 mg PO DAILY 10/07/22 10/07/22 History dilTIAZem HCL [Tiadylt ER] 300 mg PO DAILY 10/07/22 10/07/22 History Allergies Allergy/AdvReac Type Severity Reaction Status Date / Time amoxicillin [From Augmentin] Allergy Unknown Verified 10/07/22 01:02 clavulanic acid Allergy Unknown Verified 10/07/22 01:02 [From Augmentin] codeine Allergy Unknown Verified 10/07/22 01:02 metformin Allergy Nausea & Verified 10/07/22 01:02 Vomiting Tetracyclines Allergy Unknown Verified 10/07/22 01:02 Surgical - Exam Vital Signs Temp Pulse Resp BP Pulse Ox 98.2 F 51 L 26 H 99/66 96 10/07/22 00:55 10/07/22 00:55 10/07/22 00:55 10/07/22 00:55 10/07/22 00:55 Results - Labs 10/07/22 11:07 10/07/22 01:21 Abnormal Lab Results - Last 24 Hours (Table) 10/07/22 10/07/22 10/07/22 Range/Units 01:21 01:21 01:21 Hgb 8.5 L (11.4-16.0) gm/dL Hct 29.0 L (34.0-46.0) % MCV 73.3 L (80.0-100.0) fL MCH 21.3 L (25.0-35.0) pg MCHC 29.1 L (31.0-37.0) g/dL RDW 20.8 H (11.5-15.5) % PT 12.2 H (9.0-12.0) sec INR 1.2 H (<1.2) D-Dimer 2.55 H (<0.60) mg/L FEU Sodium (137-145) mmol/L BUN (7-17) mg/dL Creatinine (0.52-1.04) mg/dL Glucose (74-99) mg/dL Calcium (8.4-10.2) mg/dL ALT (4-34) U/L Urine Appearance Turbid H (Clear) Urine Protein 1+ H (Negative) Urine Glucose (UA) 3+ H (Negative) Urine Blood Moderate H (Negative) Ur Leukocyte Esterase Large H (Negative) Urine RBC 115 H (0-5) /hpf Urine WBC 56 H (0-5) /hpf Urine WBC Clumps Many H (None) /hpf Ur Squamous Epith Cells 53 H (0-4) /hpf Urine Bacteria Occasional H (None) /hpf Hyaline Casts 124 H (0-2) /lpf Urine Mucus Many H (None) /hpf 10/07/22 Range/Units 01:21 Hgb (11.4-16.0) gm/dL Hct (34.0-46.0) % MCV (80.0-100.0) fL MCH (25.0-35.0) pg MCHC (31.0-37.0) g/dL RDW (11.5-15.5) % PT (9.0-12.0) sec INR (<1.2) D-Dimer (<0.60) mg/L FEU Sodium 136 L (137-145) mmol/L BUN 21 H (7-17) mg/dL Creatinine 1.07 H (0.52-1.04) mg/dL Glucose 110 H (74-99) mg/dL Calcium 8.3 L (8.4-10.2) mg/dL ALT 50 H (4-34) U/L Urine Appearance (Clear) Urine Protein (Negative) Urine Glucose (UA) (Negative) Urine Blood (Negative) Ur Leukocyte Esterase (Negative) Urine RBC (0-5) /hpf Urine WBC (0-5) /hpf Urine WBC Clumps (None) /hpf Ur Squamous Epith Cells (0-4) /hpf Urine Bacteria (None) /hpf Hyaline Casts (0-2) /lpf Urine Mucus (None) /hpf Microbiology - Last 24 Hours (Table) 10/07/22 01:21 Urine Culture - Preliminary Urine,Voided Diabetes panel 10/07/22 Range/Units 01:21 Sodium 136 L (137-145) mmol/L Potassium 4.6 (3.5-5.1) mmol/L Chloride 98 (98-107) mmol/L Carbon Dioxide 30 (22-30) mmol/L BUN 21 H (7-17) mg/dL Creatinine 1.07 H (0.52-1.04) mg/dL Glucose 110 H (74-99) mg/dL Calcium 8.3 L (8.4-10.2) mg/dL AST 31 (14-36) U/L ALT 50 H (4-34) U/L Alkaline Phosphatase 109 (38-126) U/L Total Protein 6.4 (6.3-8.2) g/dL Albumin 3.5 (3.5-5.0) g/dL Calcium panel 10/07/22 Range/Units 01:21 Calcium 8.3 L (8.4-10.2) mg/dL Albumin 3.5 (3.5-5.0) g/dL Pituitary panel 10/07/22 Range/Units 01:21 Sodium 136 L (137-145) mmol/L Potassium 4.6 (3.5-5.1) mmol/L Chloride 98 (98-107) mmol/L Carbon Dioxide 30 (22-30) mmol/L BUN 21 H (7-17) mg/dL Creatinine 1.07 H (0.52-1.04) mg/dL Glucose 110 H (74-99) mg/dL Calcium 8.3 L (8.4-10.2) mg/dL Adrenal panel 10/07/22 Range/Units 01:21 Sodium 136 L (137-145) mmol/L Potassium 4.6 (3.5-5.1) mmol/L Chloride 98 (98-107) mmol/L Carbon Dioxide 30 (22-30) mmol/L BUN 21 H (7-17) mg/dL Creatinine 1.07 H (0.52-1.04) mg/dL Glucose 110 H (74-99) mg/dL Calcium 8.3 L (8.4-10.2) mg/dL Total Bilirubin 0.8 (0.2-1.3) mg/dL AST 31 (14-36) U/L ALT 50 H (4-34) U/L Alkaline Phosphatase 109 (38-126) U/L Total Protein 6.4 (6.3-8.2) g/dL Albumin 3.5 (3.5-5.0) g/dL
[2022-10-07 11:51] LABS: Basophils # (A) 0.09 X 10*3/uL (0.00-0.10); Eosinophils # (A) 0.15 X 10*3/uL (0.04-0.35); Eosinophils % (A) 1.7 %; Immature Grans, Automated 0.6 %; Lymphocytes # (A) 1.74 X 10*3/uL (0.90-5.00); MCH 20.5 pg (27.0-32.0); MCHC 27.6 g/dL (32.0-37.0); MCV 74.4 fL (80.0-97.0); Monocytes # (A) 0.92 X 10*3/uL (0.20-1.00); Monocytes % (A) 10.6 %; NRBC Per 100 WBC 0.5 /100 WBCS (0.0-0.0); Neutrophils # (A) 5.76 X 10*3/uL (1.80-7.70); Neutrophils % (A) 66.1 %; Platelet Count 190 X 10*3/uL (140-440); RDW 23.6 % (11.5-14.5); WBC 8.71 X 10*3/uL (4.50-10.00)
[2022-10-07 12:16] LABS: Anisocytosis Moderate; Basophils # (A) 0.1 k/uL (0-0.2); Basophils % (A) 1 %; Eosinophils # (A) 0.1 k/uL (0-0.7); Eosinophils % (A) 2 %; HCT 29.9 % (34.0-46.0); HGB 8.6 gm/dL (11.4-16.0); Hypochromasia Marked; Lymphocytes % (A) 14 %; MCH 21.2 pg (25.0-35.0); MCHC 28.6 g/dL (31.0-37.0); MCV 74.1 fL (80.0-100.0); Mean Platelet Volume 8.9; Microcytosis Marked; Monocytes # (A) 0.4 k/uL (0-1.0); Monocytes % (A) 5 %; Neutrophils # (A) 5.2 k/uL (1.3-7.7); Neutrophils % (A) 75 %; Platelet Count 165 k/uL (150-450); Poikilocytosis Moderate; RBC 4.04 m/uL (3.80-5.40); RDW 20.8 % (11.5-15.5); WBC 6.9 k/uL (3.8-10.6)
[2022-10-07] MEDS: HEPARIN SODIUM,PORCINE/PF 5,000 UNIT/0.5 ML SYRINGE SQ SCH ×3 (12:19→16:09)
[2022-10-07] MEDS: methylPREDNISolone SOD SUCCI 125 MG/2 ML VIAL IV SCH ×2 (12:19→17:49)
--- NOTE | 2022-10-07 15:07 | P.CNPUL ---
History of Present Illness Consult date: 10/07/22 Requesting physician: Mary Pham Reason for consult: dyspnea, cough, COPD, hypoxemia, pneumonia, abnormal CXR/CT Chief complaint: Shortness of breath, chest congestion, cough. History of present illness: Pulmonary consult dated 10/07/2022. 66-year-old female brought into the emergency room on October 07, by EMS, for difficulty breathing/shortness of breath. The patient was recently in the hospital, and was discharged, and came back in, for progressive and worsening shortness of breath, cough, chest congestion, and generally not feeling well. The patient was seen, evaluated, and admitted with a diagnosis of right middle lobe, and right lower lobe pneumonia. She is seen in room 16 in the intensive care unit. She does have COPD from previous heavy tobacco use. She smoked for at least 40 years. Currently, she is on 4 L of oxygen. No IV fluids. She was placed on cefepime and vancomycin. We added Solu-Medrol, Pulmicort, and formoterol. Her CT angiogram was negative for pulmonary embolism. White count 6.9, hemoglobin 8.6, hematocrit 29.9, and platelet count 265,000. D-dimer was 2.55. Sodium 136, potassium 4.6, chlorides 98, CO2 30, BUN 21, and creatinine 1.07. The urine was suggestive of a possible urinary tract infection. Testing for influenza A, and influenza B, RSV, and coronavirus, were all negative. Chest x-rays consistent with a small right-sided effusion, and right lower lobe pneumonia. CT angiogram showed evidence of cardiomegaly, as well as right middle lobe and right lower lobe pneumonia, and a moderate right-sided pleural effusion. Review of Systems REVIEW OF SYSTEMS: CONSTITUTIONAL: Fatigue/weakness. NEUROLOGIC: [ Negative.] HEENT: [ Negative.] CARDIAC: [Negative.] PULMONARY: Shortness of breath, cough, chest congestion, and phlegm production. GI: [Negative.] : [Negative.] RHEUMATOLOGIC: [ Negative.] IMMUNOLOGIC: [ Negative.] ENDOCRINE: [Negative. 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 Past Psychological History: No Psychological Hx Reported Smoking Status: Former smoker Past Alcohol Use History: None Reported Past Drug Use History: None Reported - Past Family History Father Family Medical History: Myocardial Infarction ([place]), Rheumatoid Arthritis ([place]) Medications and Allergies Home Medications Medication Instructions Recorded Confirmed Type Albuterol Sulfate [Ventolin HFA] 2 puff INHALATION RT-Q6H PRN 09/30/20 10/07/22 History Pantoprazole Sodium [Protonix] 40 mg PO BID 09/30/20 10/07/22 History busPIRone HCl [Buspar] 10 mg PO TID PRN 09/30/20 10/07/22 History ALPRAZolam [Xanax] 0.5 mg PO DAILY PRN 09/30/22 10/07/22 History Aspirin EC [Ecotrin Low Dose] 81 mg PO DAILY 09/30/22 10/07/22 History Biotin 5 mg PO DAILY 09/30/22 10/07/22 History Bumetanide [BUMEX] 2 mg PO BID 09/30/22 10/07/22 History Cholecalciferol [Vitamin D3 (25 25 mcg PO DAILY 09/30/22 10/07/22 History Mcg = 1000 Iu)] Clopidogrel [Plavix] 75 mg PO DAILY 09/30/22 10/07/22 History Cyanocobalamin [Vitamin B-12] 500 mcg PO DAILY 09/30/22 10/07/22 History Dapagliflozin Propanediol [Farxiga] 10 mg PO DAILY 09/30/22 10/07/22 History Dicyclomine [Bentyl] 10 mg PO BID PRN 09/30/22 10/07/22 History Escitalopram [Lexapro] 10 mg PO DAILY 09/30/22 10/07/22 History Fluticasone/Umeclidin/Vilanter 1 puff INHALATION RT-DAILY 09/30/22 10/07/22 History [Trelegy Ellipta 100-62.5-25] Ipratropium-Albuterol Nebulize 3 ml INHALATION RT-Q6H PRN 09/30/22 10/07/22 History [Duoneb 0.5 mg-3 mg/3 ml Soln] Isosorbide Mononitrate ER [Imdur] 30 mg PO DAILY 09/30/22 10/07/22 History Losartan Potassium [Cozaar] 25 mg PO DAILY 09/30/22 10/07/22 History Magnesium 250 mg PO DAILY 09/30/22 10/07/22 History Metoprolol Succinate [Toprol XL] 200 mg PO DAILY 09/30/22 10/07/22 History Mirtazapine [Remeron] 45 mg PO HS 09/30/22 10/07/22 History Potassium Chloride [Klor-Con M10] 10 meq PO BID 09/30/22 10/07/22 History Rosuvastatin [Crestor] 20 mg PO DAILY 09/30/22 10/07/22 History Spironolactone [Aldactone] 25 mg PO DAILY 09/30/22 10/07/22 History Sucralfate [Carafate] 1 gm PO ACHS 09/30/22 10/07/22 History Zinc Gluconate [Zinc] 50 mg PO DAILY 09/30/22 10/07/22 History Levofloxacin [Levaquin] 750 mg PO DAILY 10/07/22 10/07/22 History dilTIAZem HCL [Tiadylt ER] 300 mg PO DAILY 10/07/22 10/07/22 History Allergies Allergy/AdvReac Type Severity Reaction Status Date / Time amoxicillin [From Augmentin] Allergy Unknown Verified 10/07/22 01:02 clavulanic acid Allergy Unknown Verified 10/07/22 01:02 [From Augmentin] codeine Allergy Unknown Verified 10/07/22 01:02 metformin Allergy Nausea & Verified 10/07/22 01:02 Vomiting Tetracyclines Allergy Unknown Verified 10/07/22 01:02 Physical Exam Osteopathic Statement: *. No significant issues noted on an osteopathic structural exam other than those noted in the History and Physical/Consult. Vitals: Vital Signs Temp Pulse Resp BP Pulse Ox 10/07/22 13:52 71 18 92/50 97 10/07/22 12:31 68 10/07/22 12:19 64 10/07/22 12:00 69 18 90/45 98 10/07/22 11:00 69 18 118/76 97 10/07/22 10:00 73 18 120/78 97 10/07/22 09:34 66 18 118/72 96 10/07/22 08:00 66 10/07/22 07:49 64 10/07/22 06:10 62 22 118/68 95 10/07/22 04:50 57 L 24 106/54 97 10/07/22 02:01 53 L 90/61 10/07/22 01:13 26 H 10/07/22 01:02 55 L 26 H 105/58 97 10/07/22 00:55 98.2 F 51 L 26 H 99/66 96 Intake and Output 10/06/22 10/07/22 10/07/22 22:59 06:59 14:59 Other: Weight 102.058 kg 102.058 kg No acute distress, oriented 3. The patient does have some very mild shortness of breath, at rest, and does have a frequent wet congested cough. HEENT examination is grossly unremarkable. Neck supple. Full range of motion. No adenopathy thyromegaly or neck vein dist ention. Cardiovascular examination reveals regular rhythm rate. S1-S2 normal. No S3 or S4. No discernible murmur noted. Heart rate 71 bpm. Heart sounds are distant. Lungs reveal diffuse bilateral rhonchi. Expiratory wheezes are noted. No crackles. Breath sounds are diminished at the right lung base. Abdomen soft bowel sounds are heard. No masses or tenderness. Extremities are intact. No cyanosis clubbing or edema. Skin is without rash or lesion. Neurologic examination is brief but nonfocal. Results - Laboratory Findings CBC and BMP: 10/07/22 11:07 10/07/22 01:21 PT/INR, D-dimer PT 12.2 sec (9.0-12.0) H 10/07/22 01:21 INR 1.2 (<1.2) H 10/07/22 01:21 D-Dimer 2.55 mg/L FEU (<0.60) H 10/07/22 01:21 Abnormal lab findings: Abnormal Labs 10/07/22 10/07/22 10/07/22 01:21 01:21 01:21 RBC Hgb 8.5 L Hct 29.0 L MCV 73.3 L MCH 21.3 L MCHC 29.1 L RDW 20.8 H Absolute Nucleated RBC Immature Gran # NRBC/100 WBC Diff PT 12.2 H INR 1.2 H D-Dimer 2.55 H Sodium BUN Creatinine Glucose Calcium ALT Urine Appearance Turbid H Urine Protein 1+ H Urine Glucose (UA) 3+ H Urine Blood Moderate H Ur Leukocyte Esterase Large H Urine RBC 115 H Urine WBC 56 H Urine WBC Clumps Many H Ur Squamous Epith Cells 53 H Urine Bacteria Occasional H Hyaline Casts 124 H Urine Mucus Many H 10/07/22 10/07/22 10/07/22 01:21 07:32 11:07 RBC 3.90 L Hgb 8.0 L 8.6 L Hct 29.0 L 29.9 L MCV 74.4 L 74.1 L MCH 20.5 L 21.2 L MCHC 27.6 L 28.6 L RDW 23.6 H 20.8 H Absolute Nucleated RBC 0.04 H Immature Gran # 0.05 H NRBC/100 WBC Diff 0.5 H PT INR D-Dimer Sodium 136 L BUN 21 H Creatinine 1.07 H Glucose 110 H Calcium 8.3 L ALT 50 H Urine Appearance Urine Protein Urine Glucose (UA) Urine Blood Ur Leukocyte Esterase Urine RBC Urine WBC Urine WBC Clumps Ur Squamous Epith Cells Urine Bacteria Hyaline Casts Urine Mucus - Diagnostic Findings Chest x-ray: image reviewed CT scan - chest: image reviewed Assessment and Plan Assessment: Acute hypoxemic respiratory failure, secondary to right middle lobe and right lower lobe pneumonia, and acute COPD exacerbation. Previous history of heavy tobacco use. History of atrial fibrillation. History of congestive heart failure. History of hyperlipidemia. History of diabetes mellitus. History of hypertension. Obesity. Multiple other medical problems and comorbidities. Plan: Plan dated 10/07/2022. The patient's currently on cefepime and vancomycin as antibiotics. The patient's getting Solu-Medrol 60 mg every 6 hours, and breathing treatments with albuterol and ipratropium bromide. In addition, we added formoterol, and budesonide. X-rays, labs, and medications are reviewed. We will continue to follow the patient and make recommendations along the way. A pro-calcitonin level is ordered. Legionella antigen is also ordered. Prognosis is guarded. Time with Patient: Greater than 30
[2022-10-07] MEDS: ALPRAZolam 0.5 MG TAB PO PRN (15:18)
[2022-10-07 18:42] LABS: Anisocytosis Moderate; Basophils % (A) 1 %; Eosinophils % (A) 1 %; HCT 29.2 % (34.0-46.0); HGB 8.5 gm/dL (11.4-16.0); Hypochromasia Marked; Lymphocytes # (A) 0.4 k/uL (1.0-4.8); Lymphocytes % (A) 7 %; MCH 21.9 pg (25.0-35.0); MCHC 29.1 g/dL (31.0-37.0); MCV 75.1 fL (80.0-100.0); Mean Platelet Volume 8.4; Microcytosis Moderate; Monocytes # (A) 0.1 k/uL (0-1.0); Monocytes % (A) 3 %; Neutrophils # (A) 4.5 k/uL (1.3-7.7); Neutrophils % (A) 89 %; Platelet Count 159 k/uL (150-450); Poikilocytosis Moderate; RBC 3.89 m/uL (3.80-5.40); RDW 20.3 % (11.5-15.5); WBC 5.1 k/uL (3.8-10.6)
[2022-10-07 20:07] LABS: % Iron Saturation 4.19 (12.00-45.00); Ferritin 19.4 ng/mL (10.0-291.0)
[2022-10-07] MEDS: FORMOTEROL FUMARATE 20 MCG/2 ML NEBU INHALATION SCH (20:24)
[2022-10-07] MEDS: BUDESONIDE 1 MG/2 ML NEBU INHALATION SCH (20:24)
[2022-10-07] MEDS: guaiFENesin 600 MG TABLET.ER PO SCH (21:31)
[2022-10-07] MEDS: CEFEPIME 1 GM in SODIUM CHLORIDE 0.9% 50 ML IVPB SCH (21:31)
[2022-10-07] MEDS: PANTOPRAZOLE 40 MG/10 ML VIAL IVP SCH (21:31)
[2022-10-07] MEDS: MIRTAZAPINE 45 MG TABLET PO SCH (22:34)
[2022-10-08] MEDS: HEPARIN SODIUM,PORCINE/PF 5,000 UNIT/0.5 ML SYRINGE SQ SCH ×3 (00:54→17:06)
[2022-10-08] MEDS: methylPREDNISolone SOD SUCCI 125 MG/2 ML VIAL IV SCH ×4 (00:54→17:06)
[2022-10-08 01:10] LABS: Anisocytosis Moderate; Basophils % (A) 0 %; Eosinophils % (A) 0 %; HCT 30.4 % (34.0-46.0); HGB 8.7 gm/dL (11.4-16.0); Hypochromasia Marked; Lymphocytes # (A) 0.3 k/uL (1.0-4.8); Lymphocytes % (A) 5 %; MCH 21.6 pg (25.0-35.0); MCHC 28.7 g/dL (31.0-37.0); MCV 75.4 fL (80.0-100.0); Mean Platelet Volume 8.6; Microcytosis Moderate; Monocytes # (A) 0.2 k/uL (0-1.0); Monocytes % (A) 3 %; Neutrophils # (A) 4.5 k/uL (1.3-7.7); Neutrophils % (A) 90 %; Platelet Count 166 k/uL (150-450); Poikilocytosis Moderate; RBC 4.03 m/uL (3.80-5.40); RDW 20.4 % (11.5-15.5); WBC 4.9 k/uL (3.8-10.6)
[2022-10-08] MEDS ORDERED: VANCOMYCIN 1,500 MG in SODIUM CHLORIDE 0.9% 500 ML 500 ML IVPB SCH (04:00)
[2022-10-08] MEDS ORDERED: VANCOMYCIN 1,750 MG in SODIUM CHLORIDE 0.9% 500 ML 500 ML IVPB SCH (06:00)
[2022-10-08] MEDS: BUDESONIDE 1 MG/2 ML NEBU INHALATION SCH ×2 (08:53→19:25)
[2022-10-08] MEDS: FORMOTEROL FUMARATE 20 MCG/2 ML NEBU INHALATION SCH ×2 (08:53→19:25)
[2022-10-08] MEDS: IPRATROPIUM-ALBUTEROL 3 ML NEB INHALATION SCH ×4 (08:53→19:25)
[2022-10-08] MEDS: SPIRONOLACTONE 25 MG TAB PO SCH (09:21)
[2022-10-08] MEDS: guaiFENesin 600 MG TABLET.ER PO SCH ×2 (09:21→20:56)
[2022-10-08] MEDS: ATORVASTATIN 40 MG TAB PO SCH (09:21)
[2022-10-08] MEDS: ISOSORBIDE MONONITRATE ER 30 MG TAB.ER.24H PO SCH (09:21)
[2022-10-08] MEDS: ASPIRIN 81 MG PO SCH (09:21)
[2022-10-08] MEDS: PANTOPRAZOLE 40 MG/10 ML VIAL IVP SCH ×2 (09:22→20:56)
[2022-10-08] MEDS: METOPROLOL SUCCINATE (ER) 100 MG TAB.ER.24H PO SCH (09:22)
[2022-10-08] MEDS: LOSARTAN 25 MG TAB PO SCH (09:24)
[2022-10-08] MEDS: FUROSEMIDE 10 MG/ML 4 ML VIAL IV SCH ×2 (09:26→20:57)
[2022-10-08] MEDS: CEFEPIME 1 GM in SODIUM CHLORIDE 0.9% 50 ML IVPB SCH (09:28)
[2022-10-08] MEDS: ESCITALOPRAM 10 MG TAB PO SCH (09:28)
[2022-10-08 11:02] LABS: Anion Gap 9.4 mmol/L (10.00-18.00); BUN/Creat Ratio 16.6 Ratio (12.00-20.00); Blood Urea Nitrogen 16.6 mg/dL (9.0-27.0); Carbon Dioxide 28.6 mmol/L (20.0-27.5); Non-African American GFR(CKD) 58.7 (60.0-200.0); Potassium 4.7 mmol/L (3.5-5.5)
[2022-10-08 12:22] LABS: Basophils # (A) 0.01 X 10*3/uL (0.00-0.10); Basophils % (A) 0.2 %; Eosinophils # (A) 0 X 10*3/uL (0.04-0.35); Eosinophils % (A) 0 %; HCT 28.6 % (37.2-46.3); HGB 7.7 g/dL (12.0-15.0); Immature Grans, Automated 0.6 %; Lymphocytes # (A) 0.48 X 10*3/uL (0.90-5.00); Lymphocytes % (A) 7.7 %; MCH 20.1 pg (27.0-32.0); MCHC 26.9 g/dL (32.0-37.0); MCV 74.7 fL (80.0-97.0); Monocytes # (A) 0.15 X 10*3/uL (0.20-1.00); Monocytes % (A) 2.4 %; NRBC Per 100 WBC 0 /100 WBCS (0.0-0.0); Neutrophils # (A) 5.56 X 10*3/uL (1.80-7.70); Neutrophils % (A) 89.1 %; Platelet Count 182 X 10*3/uL (140-440); RBC 3.83 X 10*6/uL (4.10-5.20); RDW 23.1 % (11.5-14.5); WBC 6.24 X 10*3/uL (4.50-10.00)
[2022-10-08] MEDS: LEVOFLOXACIN 750 MG TAB PO SCH (12:23)
[2022-10-08] MEDS: SODIUM FERRIC GLUCONAT-SUCROSE 125 MG in SODIUM CHLORIDE 0.9% 100 ML IVPB SCH (14:43)
--- NOTE | 2022-10-08 15:03 | P.PN ---
Subjective Progress Note Date: 10/08/22 Principal diagnosis: Shortness of breath, pneumonia. Pulmonary consult dated 10/07/2022. 66-year-old female brought into the emergency room on October 07, by EMS, for difficulty breathing/shortness of breath. The patient was recently in the hospital, and was discharged, and came back in, for progressive and worsening shortness of breath, cough, chest congestion, and generally not feeling well. The patient was seen, evaluated, and admitted with a diagnosis of right middle lobe, and right lower lobe pneumonia. She is seen in room 16 in the intensive care unit. She does have COPD from previous heavy tobacco use. She smoked for at least 40 years. Currently, she is on 4 L of oxygen. No IV fluids. She was placed on cefepime and vancomycin. We added Solu-Medrol, Pulmicort, and formoterol. Her CT angiogram was negative for pulmonary embolism. White count 6.9, hemoglobin 8.6, hematocrit 29.9, and platelet count 265,000. D-dimer was 2.55. Sodium 136, potassium 4.6, chlorides 98, CO2 30, BUN 21, and creatinine 1.07. The urine was suggestive of a possible urinary tract infection. Testing for influenza A, and influenza B, RSV, and coronavirus, were all negative. Chest x-rays consistent with a small right-sided effusion, and right lower lobe pneumonia. CT angiogram showed evidence of cardiomegaly, as well as right middle lobe and right lower lobe pneumonia, and a moderate right-sided pleural effusion. Progress note dated 10/08/2022. 66-year-old female seen yesterday in the emergency room, shortness of breath, cough, chest congestion, and possible pneumonia involving the right middle lobe and right lower lobe. Currently, the patient is in bed, resting, on 4 L. No respiratory distress. She states that she does not feel any better today than she did yesterday. White count 6.24, hemoglobin 7.7, hematocrit 28.6, and platelet count 282,000. Sodium 136, potassium 4.7, chlorides 98, CO2 29, BUN 16, and creatinine 1. Pro-calcitonin level is surprisingly low at 0.06. She does appear to have a urinary tract infection. She tested negative for influenza A, and B, as well as RSV, and coronavirus. She is currently on cefepime and Levaquin. Objective - Vital Signs Vital signs: Vital Signs Temp 98.3 F 10/08/22 08:00 Pulse 92 10/08/22 12:19 Resp 18 10/08/22 08:00 BP 106/64 10/08/22 08:00 Pulse Ox 98 10/08/22 08:53 FiO2 Intake & Output 10/07/22 10/08/22 10/08/22 18:59 06:59 18:59 Intake Total 300 500 Balance 300 500 Weight 102.058 kg Intake: Intake, IV Titration 500 Amount Vancomycin 1,500 mg In 500 Sodium Chloride 0.9% 500 ml 500 ml @ 167 mls/hr IVPB Q16H [facility] Rx#: [id number] Oral 300 Other: Voiding Method Bedside Commode # Voids 2 3 - Exam No acute distress, oriented 3. The patient does have some very mild shortness of breath, at rest, and does have a frequent wet congested cough. HEENT examination is grossly unremarkable. Neck supple. Full range of motion. No adenopathy thyromegaly or neck vein distention. Cardiovascular examination reveals regular rhythm rate. S1-S2 normal. No S3 or S4. No discernible murmur noted. Heart rate 92 bpm. Heart sounds are distant. Lungs reveal diffuse bilateral rhonchi. Expiratory wheezes are noted. No crackles. Breath sounds are diminished at the right lung base. 4 L saturation is 98%. Abdomen soft bowel sounds are heard. No masses or tenderness. Extremities are intact. No cyanosis clubbing or edema. Skin is without rash or lesion. Neurologic examination is brief but nonfocal. - Labs CBC & Chem 7: 10/08/22 06:34 10/08/22 06:34 Labs: Abnormal Lab Results - Last 24 Hours (Table) 10/07/22 10/07/22 10/08/22 Range/Units 11:07 17:33 00:04 RBC (4.10-5.20) X 10*6/uL Hgb 8.5 L 8.7 L (11.4-16.0) gm/dL Hct 29.2 L 30.4 L (34.0-46.0) % MCV 75.1 L 75.4 L (80.0-100.0) fL MCH 21.9 L 21.6 L (25.0-35.0) pg MCHC 29.1 L 28.7 L (31.0-37.0) g/dL RDW 20.3 H 20.4 H (11.5-15.5) % Lymphocytes # 0.4 L 0.3 L (1.0-4.8) k/uL Monocytes # (0.20-1.00) X 10*3/uL Eosinophils # (0.04-0.35) X 10*3/uL Carbon Dioxide (20.0-27.5) mmol/L Anion Gap (10.00-18.00) mmol/L Est GFR (CKD-EPI)NonAf (60.0-200.0) Glucose (70-110) mg/dL Iron 21 L (50-170) ug/dL TIBC 494 H (228-460) ug/dL % Saturation 4.19 L (12.00-45.00) 10/08/22 10/08/22 Range/Units 06:34 06:34 RBC 3.83 L (4.10-5.20) X 10*6/uL Hgb 7.7 L (11.4-16.0) gm/dL Hct 28.6 L (34.0-46.0) % MCV 74.7 L (80.0-100.0) fL MCH 20.1 L (25.0-35.0) pg MCHC 26.9 L (31.0-37.0) g/dL RDW 23.1 H (11.5-15.5) % Lymphocytes # 0.48 L (1.0-4.8) k/uL Monocytes # 0.15 L (0.20-1.00) X 10*3/uL Eosinophils # 0 L (0.04-0.35) X 10*3/uL Carbon Dioxide 28.6 H (20.0-27.5) mmol/L Anion Gap 9.40 L (10.00-18.00) mmol/L Est GFR (CKD-EPI)NonAf 58.7 L (60.0-200.0) Glucose 205 H (70-110) mg/dL Iron (50-170) ug/dL TIBC (228-460) ug/dL % Saturation (12.00-45.00) Microbiology - Last 24 Hours (Table) 10/07/22 01:21 Urine Culture - Final Urine,Voided 10/08/22 00:05 Sputum Culture - Preliminary Sputum Assessment and Plan Assessment: Acute hypoxemic respiratory failure, secondary to right middle lobe and right lower lobe pneumonia, and acute COPD exacerbation. Previous history of heavy tobacco use. Possible urinary tract infection. History of atrial fibrillation. History of congestive heart failure. History of hyperlipidemia. History of diabetes mellitus. History of hypertension. Obesity. Multiple other medical problems and comorbidities. Plan: Plan dated 10/07/2022. The patient's currently on cefepime and vancomycin as antibiotics. The patient's getting Solu-Medrol 60 mg every 6 hours, and breathing treatments with albuterol and ipratropium bromide. In addition, we added formoterol, and budesonide. X-rays, labs, and medications are reviewed. We will continue to follow the patient and make recommendations along the way. A pro-calcitonin level is ordered. Legionella antigen is also ordered. Prognosis is guarded. Plan dated 10/08/2022. The patient is not feeling much better today than she did yesterday. She was initially on cefepime and vancomycin, and the vancomycin was discontinued, and she was placed on Levaquin. Her urinalysis is suspicious for urinary tract infection. Saturations are 98%. Labs, x-rays, and medications are reviewed. The patient continues on breathing treatments. We will continue to follow and make recommendations along the way. Time with Patient: Less than 30
--- NOTE | 2022-10-08 19:29 | P.PN ---
Subjective Progress Note Date: 10/08/22 (delayed charting seen at 1045) Patient is a 66-year-old female with COPD and chronic hypoxic respiratory failure on 4 L nasal cannula, diastolic congestive heart failure, and atrial fibrillation on anticoagulation who presented to the ER secondary to diffuse body aches and shortness of breath. On arrival to the ER she was found to be cachectic With a respiratory rate of 26. Laboratory analysis demonstrated a hemoglobin of 8.5 (up from 7.8 on 09/30/22). BUN 21, creatinine 1.07. Uri nalysis was contaminated and patient without complaints of dysuria. Influenza A/B/RSV/COVID-19 testing were negative. Chest x-ray showed right lower lobe pneumonia with right pleural effusion. She underwent CT of the chest which showed cardiomegaly, moderate pulmonary infiltrates and atelectasis in the right middle and lower lobes with a moderate right pleural effusion and no evidence of pulmonary embolism. She was given a dose of vancomycin and cefepime in the ER for probable pneumonia. Arrangements were made for admission. Pulmonary saw the patient and agreed with antibiotics. Patient's calcitonin then came back at 0.06 and she was subsequently transitioned back to Levaquin as it appeared her outpatient antibiotics were effective and she just was awaiting resolution of ch anges on computed tomography scan. Of note the patient was here on 09/30 and was transferred to [facility] secondary to probable GI bleed. She reports that they did not do a scope there but she had a scope earlier this year with an upper and lower. They have recommended a pill endoscopy which she has not yet completed. She reports she was diagnosed with pneumonia there and was taking an antibiotic and felt better for a few days and then again felt worse. 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 She is here visiting her son for the holidays. Patient seen and examined at bedside. Patient continues to complain of "not feeling well". She denies any shortness of breath. Continues to have some chest discomfort. We discussed that she has a pleural effusion and recent pneumonia and she will likely have some chest discomfort for several weeks and feel weak. I again reiterated that I reviewed her records from [facility] it is recommended that she have an outpatient scope. General: nontoxic, no distress, appears older than stated age, obese Derm: warm, dry Head: atraumatic, normocephalic, symmetric Eyes: EOMI, no lid lag, anicteric sclera Mouth: no lip lesion, mucus membranes moist Cardiovascular: S1S2 reg, no murmur, positive posterior tibial pulse bilateral, Lungs: Coarse breath sounds bilateral, no rhonchi, no rales , no accessory muscle use Abdominal: soft, nontender to palpation, no guarding, no appreciable organomegaly Ext: no gross muscle atrophy, no edema, no contractures Neuro: CN II-XI grossly intact, no focal neuro deficits Psych: Alert, oriented, appropriate affect Assessment/Plan: Pneumonia, failed outpatient treatment Chronic Respiratory with hypoxia, 4L Acute exacerbation of COPD, mild -Procalcitonin is negative and vancomycin mycin and cefepime will be discontinued. Patient will be transitioned back to oral Levaquin. -Pulmonary recommendations appreciated - sputum culture, procalitonin, legionella antigen - pulm hygiene - oral steroids, bronchdilators. Anemia, Iron deficiency - IV iron X 3 if still hospitalized. 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 Objective - Vital Signs Vital signs: Vital Signs Temp 98.0 F 10/08/22 14:00 Pulse 92 10/08/22 16:34 Resp 17 10/08/22 14:00 BP 103/55 10/08/22 14:00 Pulse Ox 94 L 10/08/22 14:00 FiO2 Intake & Output 10/08/22 10/08/22 10/09/22 06:59 18:59 06:59 Intake Total 500 Balance 500 Intake: Intake, IV Titration 500 Amount Vancomycin 1,500 mg In 500 Sodium Chloride 0.9% 500 ml 500 ml @ 167 mls/hr IVPB Q16H [facility] Rx#: [id number] Other: Voiding Method Bedside Commode # Voids 3 6 - Labs CBC & Chem 7: 10/08/22 06:34 10/08/22 06:34 Labs: Abnormal Lab Results - Last 24 Hours (Table) 10/07/22 10/08/22 10/08/22 Range/Units 11:07 00:04 06:34 RBC 3.83 L (4.10-5.20) X 10*6/uL Hgb 8.7 L 7.7 L (11.4-16.0) gm/dL Hct 30.4 L 28.6 L (34.0-46.0) % MCV 75.4 L 74.7 L (80.0-100.0) fL MCH 21.6 L 20.1 L (25.0-35.0) pg MCHC 28.7 L 26.9 L (31.0-37.0) g/dL RDW 20.4 H 23.1 H (11.5-15.5) % Lymphocytes # 0.3 L 0.48 L (1.0-4.8) k/uL Monocytes # 0.15 L (0.20-1.00) X 10*3/uL Eosinophils # 0 L (0.04-0.35) X 10*3/uL Carbon Dioxide (20.0-27.5) mmol/L Anion Gap (10.00-18.00) mmol/L Est GFR (CKD-EPI)NonAf (60.0-200.0) Glucose (70-110) mg/dL Iron 21 L (50-170) ug/dL TIBC 494 H (228-460) ug/dL % Saturation 4.19 L (12.00-45.00) 10/08/22 Range/Units 06:34 RBC (4.10-5.20) X 10*6/uL Hgb (11.4-16.0) gm/dL Hct (34.0-46.0) % MCV (80.0-100.0) fL MCH (25.0-35.0) pg MCHC (31.0-37.0) g/dL RDW (11.5-15.5) % Lymphocytes # (1.0-4.8) k/uL Monocytes # (0.20-1.00) X 10*3/uL Eosinophils # (0.04-0.35) X 10*3/uL Carbon Dioxide 28.6 H (20.0-27.5) mmol/L Anion Gap 9.40 L (10.00-18.00) mmol/L Est GFR (CKD-EPI)NonAf 58.7 L (60.0-200.0) Glucose 205 H (70-110) mg/dL Iron (50-170) ug/dL TIBC (228-460) ug/dL % Saturation (12.00-45.00) Microbiology - Last 24 Hours (Table) 10/07/22 01:21 Urine Culture - Final Urine,Voided 10/08/22 00:05 Sputum Culture - Preliminary Sputum
[2022-10-08] MEDS: MIRTAZAPINE 45 MG TABLET PO SCH (20:56)
[2022-10-08] MEDS ORDERED: CEFEPIME 2 GM in SODIUM CHLORIDE 0.9% 100 ML IVPB SCH (21:00)
--- NOTE | 2022-10-08 23:45 | P.PN ---
Subjective Progress Note Date: 10/08/22 Patient continues to bleed with acute blood loss anemia. Hgb continues to decline. Recommend EGD and colonoscopy while inpatient. Also recommend regular diet tonight and tomorrow. Possible EGD and colonoscopy for Tuesday. Objective - Vital Signs Vital signs: Vital Signs Temp 98.0 F 10/08/22 19:44 Pulse 84 10/08/22 19:51 Resp 22 10/08/22 19:44 BP 112/72 10/08/22 19:44 Pulse Ox 92 L 10/08/22 19:44 FiO2 Intake & Output 10/08/22 10/08/22 10/09/22 06:59 18:59 06:59 Intake Total 500 240 Balance 500 240 Intake: Intake, IV Titration 500 Amount Vancomycin 1,500 mg In 500 Sodium Chloride 0.9% 500 ml 500 ml @ 167 mls/hr IVPB Q16H [facility] Rx#: [id number] Oral 240 Other: Voiding Method Bedside Commode # Voids 3 6 - Labs CBC & Chem 7: 10/08/22 06:34 10/08/22 06:34 Labs: Abnormal Lab Results - Last 24 Hours (Table) 10/08/22 10/08/22 10/08/22 Range/Units 00:04 06:34 06:34 RBC 3.83 L (4.10-5.20) X 10*6/uL Hgb 8.7 L 7.7 L (11.4-16.0) gm/dL Hct 30.4 L 28.6 L (34.0-46.0) % MCV 75.4 L 74.7 L (80.0-100.0) fL MCH 21.6 L 20.1 L (25.0-35.0) pg MCHC 28.7 L 26.9 L (31.0-37.0) g/dL RDW 20.4 H 23.1 H (11.5-15.5) % Lymphocytes # 0.3 L 0.48 L (1.0-4.8) k/uL Monocytes # 0.15 L (0.20-1.00) X 10*3/uL Eosinophils # 0 L (0.04-0.35) X 10*3/uL Carbon Dioxide 28.6 H (20.0-27.5) mmol/L Anion Gap 9.40 L (10.00-18.00) mmol/L Est GFR (CKD-EPI)NonAf 58.7 L (60.0-200.0) Glucose 205 H (70-110) mg/dL Microbiology - Last 24 Hours (Table) 10/07/22 01:21 Urine Culture - Final Urine,Voided 10/08/22 00:05 Sputum Culture - Preliminary Sputum
[2022-10-09] MEDS: methylPREDNISolone SOD SUCCI 125 MG/2 ML VIAL IV SCH ×4 (00:53→17:37)
[2022-10-09] MEDS: HEPARIN SODIUM,PORCINE/PF 5,000 UNIT/0.5 ML SYRINGE SQ SCH ×3 (00:53→16:02)
[2022-10-09] MEDS: BUDESONIDE 1 MG/2 ML NEBU INHALATION SCH ×2 (09:08→19:18)
[2022-10-09] MEDS: IPRATROPIUM-ALBUTEROL 3 ML NEB INHALATION SCH ×4 (09:08→19:18)
[2022-10-09] MEDS: FORMOTEROL FUMARATE 20 MCG/2 ML NEBU INHALATION SCH ×2 (09:08→22:04)
[2022-10-09] MEDS: ASPIRIN 81 MG PO SCH (09:30)
[2022-10-09] MEDS: METOPROLOL SUCCINATE (ER) 100 MG TAB.ER.24H PO SCH (09:30)
[2022-10-09] MEDS: ATORVASTATIN 40 MG TAB PO SCH (09:30)
[2022-10-09] MEDS: LEVOFLOXACIN 750 MG TAB PO SCH (09:30)
[2022-10-09] MEDS: SPIRONOLACTONE 25 MG TAB PO SCH (09:30)
[2022-10-09] MEDS: ISOSORBIDE MONONITRATE ER 30 MG TAB.ER.24H PO SCH (09:30)
[2022-10-09] MEDS: guaiFENesin 600 MG TABLET.ER PO SCH ×2 (09:30→20:52)
[2022-10-09] MEDS: LOSARTAN 25 MG TAB PO SCH (09:30)
[2022-10-09] MEDS: PANTOPRAZOLE 40 MG/10 ML VIAL IVP SCH ×2 (09:42→20:52)
[2022-10-09] MEDS: FUROSEMIDE 10 MG/ML 4 ML VIAL IV SCH ×2 (09:43→20:51)
[2022-10-09] MEDS: SODIUM FERRIC GLUCONAT-SUCROSE 125 MG in SODIUM CHLORIDE 0.9% 100 ML IVPB SCH (09:45)
[2022-10-09] MEDS: ESCITALOPRAM 10 MG TAB PO SCH (09:55)
[2022-10-09] MEDS: ALPRAZolam 0.5 MG TAB PO PRN (09:55)
[2022-10-09] MEDS: DILTIAZEM CD 300 MG CAP.ER.24H PO SCH (10:32)
[2022-10-09 11:27] LABS: Anion Gap 9.3 mmol/L (10.00-18.00); BUN/Creat Ratio 19.4 Ratio (12.00-20.00); Blood Urea Nitrogen 19.4 mg/dL (9.0-27.0); Carbon Dioxide 26.7 mmol/L (20.0-27.5); Non-African American GFR(CKD) 58.7 (60.0-200.0); Potassium 4.7 mmol/L (3.5-5.5)
[2022-10-09 12:15] LABS: HCT 28.2 % (37.2-46.3); HGB 7.8 g/dL (12.0-15.0); MCH 20.3 pg (27.0-32.0); MCHC 27.7 g/dL (32.0-37.0); MCV 73.4 fL (80.0-97.0); NRBC Per 100 WBC 0.4 /100 WBCS (0.0-0.0); Platelet Count 193 X 10*3/uL (140-440); RBC 3.84 X 10*6/uL (4.10-5.20); RDW 23.8 % (11.5-14.5); WBC 14.18 X 10*3/uL (4.50-10.00)
--- NOTE | 2022-10-09 12:24 | P.PN ---
Subjective Progress Note Date: 10/09/22 Principal diagnosis: Shortness of breath, pneumonia. Pulmonary consult dated 10/07/2022. 66-year-old female brought into the emergency room on October 07, by EMS, for difficulty breathing/shortness of breath. The patient was recently in the hospital, and was discharged, and came back in, for progressive and worsening shortness of breath, cough, chest congestion, and generally not feeling well. The patient was seen, evaluated, and admitted with a diagnosis of right middle lobe, and right lower lobe pneumonia. She is seen in room 16 in the intensive care unit. She does have COPD from previous heavy tobacco use. She smoked for at least 40 years. Currently, she is on 4 L of oxygen. No IV fluids. She was placed on cefepime and vancomycin. We added Solu-Medrol, Pulmicort, and formoterol. Her CT angiogram was negative for pulmonary embolism. White count 6.9, hemoglobin 8.6, hematocrit 29.9, and platelet count 265,000. D-dimer was 2.55. Sodium 136, potassium 4.6, chlorides 98, CO2 30, BUN 21, and creatinine 1.07. The urine was suggestive of a possible urinary tract infection. Testing for influenza A, and influenza B, RSV, and coronavirus, were all negative. Chest x-rays consistent with a small right-sided effusion, and right lower lobe pneumonia. CT angiogram showed evidence of cardiomegaly, as well as right middle lobe and right lower lobe pneumonia, and a moderate right-sided pleural effusion. Progress note dated 10/08/2022. 66-year-old female seen yesterday in the emergency room, shortness of breath, cough, chest congestion, and possible pneumonia involving the right middle lobe and right lower lobe. Currently, the patient is in bed, resting, on 4 L. No respiratory distress. She states that she does not feel any better today than she did yesterday. White count 6.24, hemoglobin 7.7, hematocrit 28.6, and platelet count 282,000. Sodium 136, potassium 4.7, chlorides 98, CO2 29, BUN 16, and creatinine 1. Pro-calcitonin level is surprisingly low at 0.06. She does appear to have a urinary tract infection. She tested negative for influenza A, and B, as well as RSV, and coronavirus. She is currently on cefepime and Levaquin. Progress note dated 10/09/2022. 66-year-old female seen 2 days ago in the emergency department. She was admitted with pneumonia, and had symptoms of shortness of breath, cough, chest congestion. She seen today in room 473. She's feeling much better today. She's currently on 4 L of oxygen. She's not receiving any IV fluids. She is getting Levaquin. White count 14.2, hemoglobin 7.8, hematocrit 28.2, and platelet count 293,000. Sodium 135, potassium 4.7, chlorides 99, CO2 27, BUN 19, creatinine 1. Most recent pro-calcitonin is 0.06. Objective - Vital Signs Vital signs: Vital Signs Temp 98.3 F 10/09/22 07:13 Pulse 129 H 10/09/22 10:12 Resp 22 10/09/22 10:12 BP 106/74 10/09/22 10:12 Pulse Ox 95 10/09/22 10:12 FiO2 Intake & Output 10/08/22 10/09/22 10/09/22 18:59 06:59 18:59 Intake Total 500 240 Balance 500 240 Intake: Intake, IV Titration 500 Amount Vancomycin 1,500 mg In 500 Sodium Chloride 0.9% 500 ml 500 ml @ 167 mls/hr IVPB Q16H [facility] Rx#: [id number] Oral 240 Other: Voiding Method Bedside Commode Bedside Commode # Voids 6 4 - Exam No acute distress, oriented 3. The patient is much more awake today and alert, and not having much in way of respiratory issues. HEENT examination is grossly unremarkable. Neck supple. Full range of motion. No adenopathy thyromegaly or neck vein distention. Cardiovascular examination reveals regular rhythm rate. S1-S2 normal. No S3 or S4. No discernible murmur noted. Heart rate 96 bpm. Heart sounds are distant. Lungs reveal diffuse bilateral rhonchi. Expiratory wheezes are noted. No crackles. Breath sounds are diminished at the right lung base. 4 L saturation is 96 %. Abdomen soft bowel sounds are heard. No masses or tenderness. Extremities are intact. No cyanosis clubbing or edema. Skin is without rash or lesion. Neurologic examination is brief but nonfocal. - Labs CBC & Chem 7: 10/09/22 06:19 10/09/22 06:19 Labs: Abnormal Lab Results - Last 24 Hours (Table) 10/08/22 10/09/22 10/09/22 Range/Units 06:34 06:19 06:19 WBC 14.18 H (4.50-10.00) X 10*3/uL RBC 3.83 L 3.84 L (4.10-5.20) X 10*6/uL Hgb 7.7 L 7.8 L (12.0-15.0) g/dL Hct 28.6 L 28.2 L (37.2-46.3) % MCV 74.7 L 73.4 L (80.0-97.0) fL MCH 20.1 L 20.3 L (27.0-32.0) pg MCHC 26.9 L 27.7 L (32.0-37.0) g/dL RDW 23.1 H 23.8 H (11.5-14.5) % Absolute Nucleated RBC 0.05 H (0.00-0.00) X 10*3/uL Lymphocytes # 0.48 L (0.90-5.00) X 10*3/uL Monocytes # 0.15 L (0.20-1.00) X 10*3/uL Eosinophils # 0 L (0.04-0.35) X 10*3/uL NRBC/100 WBC Diff 0.4 H (0.0-0.0) /100 WBCS Anion Gap 9.30 L (10.00-18.00) mmol/L Est GFR (CKD-EPI)NonAf 58.7 L (60.0-200.0) Glucose 207 H (70-110) mg/dL Microbiology - Last 24 Hours (Table) 10/08/22 00:05 Gram Stain - Preliminary Sputum Sputum Culture - Preliminary 10/07/22 01:21 Urine Culture - Final Urine,Voided Assessment and Plan Assessment: Acute hypoxemic respiratory failure, secondary to right middle lobe and right lower lobe pneumonia, and acute COPD exacerbation. Previous history of heavy tobacco use. Possible urinary tract infection. History of atrial fibrillation. History of congestive heart failure. History of hyperlipidemia. History of diabetes mellitus. History of hypertension. Obesity. Multiple other medical problems and comorbidities. Plan: Plan dated 10/07/2022. The patient's currently on cefepime and vancomycin as antibiotics. The patient's getting Solu-Medrol 60 mg every 6 hours, and breathing treatments with albuterol and ipratropium bromide. In addition, we added formoterol, and budesonide. X-rays, labs, and medications are reviewed. We will continue to follow the patient and make recommendations along the way. A pro-calcitonin level is ordered. Legionella antigen is also ordered. Prognosis is guarded. Plan dated 10/08/2022. The patient is not feeling much better today than she did yesterday. She was initially on cefepime and vancomycin, and the vancomycin was discontinued, and she was placed on Levaquin. Her urinalysis is suspicious for urinary tract infection. Saturations are 98%. Labs, x-rays, and medications are reviewed. The patient continues on breathing treatments. We will continue to follow and make recommendations along the way. Plan dated 10/09/2022. 66-year-old female admitted with pneumonia. The patient's currently on 4 L. She feeling much better. Labs, x-rays, and medications are reviewed. She is much more awake and alert today than she was yesterday. So far microbiologic sampling is negative or pending. She continues on antibiotics. We will continue to follow make recommendations along the way. Prognosis is guarded. She's currently on Levaquin. Time with Patient: Less than 30
[2022-10-09] MEDS: SUCRALFATE 1 GM TAB PO SCH ×3 (12:51→20:52)
[2022-10-09 17:52] LABS: Anisocytosis Moderate; HCT 31.3 % (34.0-46.0); HGB 8.9 gm/dL (11.4-16.0); Hypochromasia Marked; MCH 21.4 pg (25.0-35.0); MCHC 28.3 g/dL (31.0-37.0); MCV 75.4 fL (80.0-100.0); Mean Platelet Volume 10.8; Microcytosis Moderate; Platelet Count 214 k/uL (150-450); Poikilocytosis Moderate; RBC 4.15 m/uL (3.80-5.40); RDW 20.9 % (11.5-15.5)
--- NOTE | 2022-10-09 19:26 | P.BASOAP ---
Subjective Progress Note Date: 10/09/22 CHIEF COMPLAINT: GI bleed and anemia HISTORY OF PRESENT ILLNESS: The patient is a 66-year-old female with pre- existing history of GI bleed. Patient continues to have blood in stools. Hgb less than 8.0. She is tolerating regular diet. Per discussion with nurse, patient had run of Vtach. ROS: No reports of nausea and vomiting. No fevers or chills. Has pneumonia. PHYSICAL EXAM: VITAL SIGNS: Reviewed CONSTITUTIONAL: Well developed and in no acute distress. EYES: Conjuctivae without sclera icterus. Extraocular movements grossly intact. HEAD, EARS, NOSE, THROAT: Moist buccal mucosa. Head is atraumatic, normocephalic. Hears conversational speech. No nasal drainage. RESPIRATORY: Labored respirations and equal bilateral excursions. CARDIOVASCULAR: Palpable 2+ radial pulses. ABDOMEN:No peritonitis MUSCULOSKELETAL: No gross deformity of the lower extremities noted. No clubbing. No cyanosis. SKIN: Good skin turgor. Well perfused. NEUROLOGIC: Cranial nerves II through XII grossly intact. No focal or lateralizing signs. PSYCH: Appropriate affect. Alert and oriented to person, place and time. CLINICAL LABS: Reviewed. Hgb 7.7 to 7.8. ASSESSMENT: 1. GI bleed 2. Anemia 3. Vtach 4. Pneumonia PLAN: 1. Recommend EGD and colon while inpatient. 2. Will proceed with scopes when medically stable. Objective - Vital Signs Vital signs: Vital Signs Temp 98.4 F 10/09/22 16:59 Pulse 98 10/09/22 19:20 Resp 20 10/09/22 14:08 BP 95/61 10/09/22 16:58 Pulse Ox 94 L 10/09/22 16:58 FiO2 Intake & Output 10/09/22 10/09/22 10/10/22 06:59 18:59 06:59 Intake Total 240 800 Balance 240 800 Intake: Oral 240 800 Other: Voiding Method Bedside Commode # Voids 4 4 - Labs CBC & Chem 7: 10/10/22 06:47 10/10/22 06:47 Labs: Abnormal Lab Results - Last 24 Hours (Table) 10/09/22 10/09/22 10/09/22 Range/Units 06:19 06:19 17:31 WBC 14.18 H 15.0 H (4.50-10.00) X 10*3/uL RBC 3.84 L (4.10-5.20) X 10*6/uL Hgb 7.8 L 8.9 L (12.0-15.0) g/dL Hct 28.2 L 31.3 L (37.2-46.3) % MCV 73.4 L 75.4 L (80.0-97.0) fL MCH 20.3 L 21.4 L (27.0-32.0) pg MCHC 27.7 L 28.3 L (32.0-37.0) g/dL RDW 23.8 H 20.9 H (11.5-14.5) % Absolute Nucleated RBC 0.05 H (0.00-0.00) X 10*3/uL NRBC/100 WBC Diff 0.4 H (0.0-0.0) /100 WBCS Anion Gap 9.30 L (10.00-18.00) mmol/L Est GFR (CKD-EPI)NonAf 58.7 L (60.0-200.0) Glucose 207 H (70-110) mg/dL Microbiology - Last 24 Hours (Table) 10/08/22 00:05 Gram Stain - Preliminary Sputum Sputum Culture - Preliminary Assessment/Plan Plan: Date: 10/07/22 Initial Weight: Initial BMI: Current Weight: 102.058 kg Current BMI: Type of Surgery: Total Volume in Band: Previous Volume: Volume Removed: Volume Added: Band Size:
--- NOTE | 2022-10-09 20:30 | P.PN ---
Subjective Progress Note Date: 10/09/22 (delayed charting seen at 1030) Patient is a 66-year-old female with COPD and chronic hypoxic respiratory failure on 4 L nasal cannula, diastolic congestive heart failure, and atrial fibrillation on anticoagulation who presented to the ER secondary to diffuse body aches and shortness of breath. On arrival to the ER she was found to be cachectic With a respiratory rate of 26. Laboratory analysis demonstrated a hemoglobin of 8.5 (up from 7.8 on 09/30/22). BUN 21, creatinine 1.07. Uri nalysis was contaminated and patient without complaints of dysuria. Influenza A/B/RSV/COVID-19 testing were negative. Chest x-ray showed right lower lobe pneumonia with right pleural effusion. She underwent CT of the chest which showed cardiomegaly, moderate pulmonary infiltrates and atelectasis in the right middle and lower lobes with a moderate right pleural effusion and no evidence of pulmonary embolism. She was given a dose of vancomycin and cefepime in the ER for probable pneumonia. Arrangements were made for admission. Pulmonary saw the patient and agreed with antibiotics. Patient's calcitonin then came back at 0.06 and she was subsequently transitioned back to Levaquin as it appeared her outpatient antibiotics were effective and she just was awaiting resolution of ch anges on computed tomography scan. Of note the patient was here on 09/30 and was transferred to [facility] secondary to probable GI bleed. She reports that they did not do a scope there but she had a scope earlier this year with an upper and lower. They have recommended a pill endoscopy which she has not yet completed. She reports she was diagnosed with pneumonia there and was taking an antibiotic and felt better for a few days and then again felt worse. 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 She is here visiting her son for the holidays. Patient seen and examined at bedside. Patient is feeling better today. She did have an episode of A fib with RVR when ambulating to the bathroom and felt dizzy and winded, it resolved with rest. Discussed plan for EGD and Colon on Tuesday. General: nontoxic, no distress, appears older than stated age, obese Derm: warm, dry Head: atraumatic, normocephalic, symmetric Eyes: EOMI, no lid lag, anicteric sclera Mouth: no lip lesion, mucus membranes moist Cardiovascular: S1S2 irreg and tachycardiac, no murmur, positive posterior tibial pulse bilateral, Lungs: Coarse breath sounds bilateral, no rhonchi, no rales , no accessory muscle use Abdominal: soft, nontender to palpation, no guarding, no appreciable organomega ly Ext: no gross muscle atrophy, no edema, no contractures Neuro: CN II-XI grossly intact, no focal neuro deficits Psych: Alert, oriented, appropriate affect Assessment/Plan: Pneumonia, failed outpatient treatment Chronic Respiratory with hypoxia, 4L Acute exacerbation of COPD, mild -Levaquin -Pulmonary recommendations appreciated - sputum culture pending, procalitonin negative , legionella urine antigen not collected - pulm hygiene - oral steroids, bronchdilators. Permanent A fib wwith RVR, not on AC at baseline due to HgB - due to cardizem not being reordered from home, patient will have son reverify med list - resume home cardizem - continue tele Anemia, Iron deficiency Possible GI bleed - IV iron X 3 - Stephanie ashley appreciated, plan is for scope on 10/11/22 - follow CBC - outpatient pill endoscopy recommended - protonix HTN, controlled - continue with losartan and metorpolol - imdur - follow BP Compensated diastolic CHF DVT prophylaxis: Heparin Discussed with: Patient, nursing Anticipated discharge date: after EGD/Colon Anticipated discharge place: home A total of 35 minutes was spent on the care of this complex patient more than 50% of the time was spent in counseling and care coordination. Active Medications Generic Name Dose Route Start Last Admin Trade Name Freq PRN Reason Stop Dose Admin Acetaminophen 650 mg 10/07/22 10:06 Acetaminophen Tab 325 Mg Tab PO Q4HR PRN Mild Pain or Fever > 100.5 Hydrocodone Bitart/Acetaminophen 1 each 10/07/22 10:06 10/07/22 12:20 Hydrocodone/Apap 5-325mg 1 Each Tab PO 1 each Q6HR PRN Administration Moderate to Severe Pain (4-10) Albuterol/Ipratropium 3 ml 10/07/22 05:52 Ipratropium-Albuterol 3 Ml Neb INHALATION RT-Q6H PRN Shortness Of Breath Albuterol/Ipratropium 3 ml 10/07/22 08:00 10/09/22 19:18 Ipratropium-Albuterol 3 Ml Neb INHALATION 3 ml RT-QID QING Administration Alprazolam 0.5 mg 10/07/22 05:52 10/09/22 09:55 Alprazolam 0.5 Mg Tab PO 0.5 mg DAILY PRN Administration Anxiety Aspirin 81 mg 10/07/22 09:00 10/09/22 09:30 Aspirin 81 Mg PO 81 mg DAILY QING Administration Atorvastatin Calcium 40 mg 10/07/22 09:00 10/09/22 09:30 Atorvastatin 40 Mg Tab PO 40 mg DAILY QING Administration Benzocaine/Menthol 1 each 10/07/22 09:50 Benzocaine/Menthol Lozeng 1 Each Lozenge MUCOUS MEM Q4HR PRN Sore Throat Budesonide 1 mg 10/07/22 20:00 10/09/22 19:18 Budesonide 1 Mg/2 Ml Nebu INHALATION 1 mg RT-BID QING Administration Buspirone HCl 10 mg 10/07/22 05:52 Buspirone Hcl 10 Mg Tab PO TID PRN Anxiety Cholecalciferol 25 mcg 10/10/22 09:00 Cholecalciferol 25 Mcg (1000 Iu) Tablet PO DAILY QING Dapagliflozin 10 mg 10/10/22 09:00 Dapagliflozin Propanediol 10 Mg Tablet PO DAILY QING Dicyclomine HCl 10 mg 10/07/22 05:52 Dicyclomine 10 Mg Cap PO BID PRN adbom. cramping Diltiazem HCl 300 mg 10/09/22 11:00 10/09/22 10:32 Diltiazem Cd 300 Mg Cap.Er.24h PO 300 mg DAILY QING Administration Escitalopram Oxalate 10 mg 10/07/22 09:00 10/09/22 09:55 Escitalopram 10 Mg Tab PO 10 mg DAILY QING Administration Formoterol Fumarate 20 mcg 10/07/22 20:00 10/09/22 09:08 Formoterol Fumarate 20 Mcg/2 Ml Nebu INHALATION 20 mcg RT-BID QING Administration Furosemide 40 mg 10/07/22 09:00 10/09/22 09:43 Furosemide 10 Mg/Ml 4 Ml Vial IV 40 mg Q12HR QING Administration Guaifenesin 600 mg 10/07/22 21:00 10/09/22 09:30 Guaifenesin 600 Mg Tablet.Er PO 600 mg Q12HR QING Administration Heparin Sodium (Porcine) 5,000 unit 10/07/22 10:15 10/09/22 16:02 Heparin Sodium,Porcine/Pf 5,000 Unit/0.5 Ml Syringe SQ 5,000 unit Q8HR QING Administration Ferric Sodium Gluconate 125 mg 110 mls @ 100 mls/hr 10/08/22 11:00 10/09/22 09:45 / Sodium Chloride IVPB 100 mls/hr DAILY QING Administration Isosorbide Mononitrate 30 mg 10/07/22 09:00 10/09/22 09:30 Isosorbide Mononitrate Er 30 Mg Tab.Er.24h PO 30 mg DAILY QING Administration Lactulose 20 gm 10/10/22 09:00 Lactulose 20 Gm/30 Ml Cup PO 10/10/22 09:01 ONCE ONE Levofloxacin 750 mg 10/08/22 10:45 10/09/22 09:30 Levofloxacin 750 Mg Tab PO 750 mg DAILY QING Administration Protocol Losartan Potassium 25 mg 10/07/22 09:00 10/09/22 09:30 Losartan 25 Mg Tab PO 25 mg DAILY QING Administration Magnesium Hydroxide 2,400 mg 10/10/22 09:00 Magnesium Hydroxide 2,400 Mg/10 Ml Cup PO 10/10/22 09:01 ONCE ONE Melatonin 3 mg 10/07/22 10:06 Melatonin 3 Mg Tablet PO HS PRN Insomnia Methylprednisolone Sodium Succinate 60 mg 10/07/22 12:00 10/09/22 17:37 Methylprednisolone Sod Succi 125 Mg/2 Ml Vial IV 60 mg Q6HR QING Administration Metoprolol Succinate 200 mg 10/07/22 09:00 10/09/22 09:30 Metoprolol Succinate (Er) 100 Mg Tab.Er.24h PO 200 mg DAILY QING Administration Mirtazapine 45 mg 10/07/22 21:00 10/08/22 20:56 Mirtazapine 45 Mg Tablet PO 45 mg HS QING Administration Naloxone HCl 0.2 mg 10/07/22 04:41 Naloxone 0.4 Mg/Ml 1 Ml Vial IV Q2M PRN Opioid Reversal Ondansetron HCl 4 mg 10/07/22 10:06 Ondansetron 4 Mg/2 Ml Vial IVP Q6HR PRN Nausea And Vomiting Pantoprazole Sodium 40 mg 10/07/22 21:00 10/09/22 09:42 Pantoprazole 40 Mg/10 Ml Vial IVP 40 mg BID QING Administration Polyethylene Glycol/Electrolytes 2,000 ml 10/10/22 08:00 Peg 3350 (420 Gm/Btl) + Lytes 4,000 Ml Bottle PO 10/10/22 08:01 ONCE ONE Spironolactone 25 mg 10/07/22 09:00 10/09/22 09:30 Spironolactone 25 Mg Tab PO 25 mg DAILY QING Administration Sucralfate 1 gm 10/09/22 12:30 10/09/22 17:19 Sucralfate 1 Gm Tab PO 1 gm ACHS QING Administration Witch Taryn 1 each 10/07/22 11:45 10/09/22 09:34 Witch Taryn 1 Each Med..Pad TOPICAL 1 each BID QING Administration Objective - Vital Signs Vital signs: Vital Signs Temp 97.9 F 10/09/22 20:00 Pulse 96 10/09/22 20:00 Resp 18 10/09/22 20:00 BP 123/73 10/09/22 20:00 Pulse Ox 94 L 10/09/22 20:00 FiO2 Intake & Output 10/09/22 10/09/22 10/10/22 06:59 18:59 06:59 Intake Total 240 800 Balance 240 800 Intake: Oral 240 800 Other: Voiding Method Bedside Commode # Voids 4 4 - Labs CBC & Chem 7: 10/09/22 17:31 10/09/22 06:19 Labs: Abnormal Lab Results - Last 24 Hours (Table) 10/09/22 10/09/22 10/09/22 Range/Units 06:19 06:19 17:31 WBC 14.18 H 15.0 H (4.50-10.00) X 10*3/uL RBC 3.84 L (4.10-5.20) X 10*6/uL Hgb 7.8 L 8.9 L (12.0-15.0) g/dL Hct 28.2 L 31.3 L (37.2-46.3) % MCV 73.4 L 75.4 L (80.0-97.0) fL MCH 20.3 L 21.4 L (27.0-32.0) pg MCHC 27.7 L 28.3 L (32.0-37.0) g/dL RDW 23.8 H 20.9 H (11.5-14.5) % Absolute Nucleated RBC 0.05 H (0.00-0.00) X 10*3/uL NRBC/100 WBC Diff 0.4 H (0.0-0.0) /100 WBCS Anion Gap 9.30 L (10.00-18.00) mmol/L Est GFR (CKD-EPI)NonAf 58.7 L (60.0-200.0) Glucose 207 H (70-110) mg/dL Microbiology - Last 24 Hours (Table) 10/08/22 00:05 Gram Stain - Preliminary Sputum Sputum Culture - Preliminary
[2022-10-09] MEDS: MIRTAZAPINE 45 MG TABLET PO SCH (20:52)
[2022-10-10] MEDS: methylPREDNISolone SOD SUCCI 125 MG/2 ML VIAL IV SCH ×5 (00:58→23:48)
[2022-10-10] MEDS: HEPARIN SODIUM,PORCINE/PF 5,000 UNIT/0.5 ML SYRINGE SQ SCH ×4 (00:59→23:49)
[2022-10-10] MEDS: ALPRAZolam 0.5 MG TAB PO PRN (02:50)
[2022-10-10] MEDS: SUCRALFATE 1 GM TAB PO SCH ×4 (07:12→21:47)
[2022-10-10 07:36] LABS: Anisocytosis Moderate; HCT 29.9 % (34.0-46.0); HGB 8.3 gm/dL (11.4-16.0); Hypochromasia Marked; MCH 20.9 pg (25.0-35.0); MCHC 27.8 g/dL (31.0-37.0); MCV 75.1 fL (80.0-100.0); Mean Platelet Volume 10.5; Microcytosis Moderate; Platelet Count 177 k/uL (150-450); Poikilocytosis Moderate; RBC 3.98 m/uL (3.80-5.40); RDW 20.9 % (11.5-15.5); WBC 10.1 k/uL (3.8-10.6)
[2022-10-10 07:38] LABS: ALT 33 U/L (4-34); AST 22 U/L (14-36); African American GFR (CKD) 71 (>60 ml/min/1.73 sqM); Albumin 3.4 g/dL (3.5-5.0); Albumin/Globulin Ratio 1.2; Alkaline Phosphatase 85 U/L (38-126); Anion Gap 6 mmol/L; Blood Urea Nitrogen 22 mg/dL (7-17); Calcium 8.5 mg/dL (8.4-10.2); Carbon Dioxide 29 mmol/L (22-30); Chloride 100 mmol/L (98-107); Globulin 2.9 g/dL; Glucose 282 mg/dL (74-99); Magnesium 2.1 mg/dL (1.6-2.3); Non-African American GFR(CKD) 62 (>60 ml/min/1.73 sqM); Phosphorus 2.5 mg/dL (2.5-4.5); Potassium 4.5 mmol/L (3.5-5.1); Sodium 135 mmol/L (137-145); Total Bilirubin 0.5 mg/dL (0.2-1.3); Total Protein 6.3 g/dL (6.3-8.2)
[2022-10-10] MEDS ORDERED: PEG 3350 (420 GM/BTL) + LYTES 4,000 ML BOTTLE PO ONE (08:00)
[2022-10-10] MEDS: ISOSORBIDE MONONITRATE ER 30 MG TAB.ER.24H PO SCH (08:06)
[2022-10-10] MEDS: SPIRONOLACTONE 25 MG TAB PO SCH (08:06)
[2022-10-10] MEDS: DILTIAZEM CD 300 MG CAP.ER.24H PO SCH (08:06)
[2022-10-10] MEDS: CHOLECALCIFEROL 25 MCG (1000 IU) TABLET PO SCH (08:06)
[2022-10-10] MEDS: ESCITALOPRAM 10 MG TAB PO SCH (08:06)
[2022-10-10] MEDS: DAPAGLIFLOZIN PROPANEDIOL 10 MG TABLET PO SCH (08:06)
[2022-10-10] MEDS: ASPIRIN 81 MG PO SCH (08:06)
[2022-10-10] MEDS: ATORVASTATIN 40 MG TAB PO SCH (08:06)
[2022-10-10] MEDS: METOPROLOL SUCCINATE (ER) 100 MG TAB.ER.24H PO SCH (08:07)
[2022-10-10] MEDS: guaiFENesin 600 MG TABLET.ER PO SCH ×2 (08:07→21:47)
[2022-10-10] MEDS: LEVOFLOXACIN 750 MG TAB PO SCH (08:07)
[2022-10-10] MEDS: LOSARTAN 25 MG TAB PO SCH (08:07)
[2022-10-10] MEDS: IPRATROPIUM-ALBUTEROL 3 ML NEB INHALATION SCH ×4 (08:15→20:23)
[2022-10-10] MEDS: FORMOTEROL FUMARATE 20 MCG/2 ML NEBU INHALATION SCH ×2 (08:15→20:23)
[2022-10-10] MEDS: BUDESONIDE 1 MG/2 ML NEBU INHALATION SCH ×2 (08:15→20:23)
[2022-10-10] MEDS ORDERED: LACTULOSE 20 GM/30 ML CUP PO ONE (09:00)
[2022-10-10] MEDS ORDERED: MAGNESIUM HYDROXIDE 2,400 MG/10 ML CUP PO ONE (09:00)
[2022-10-10] MEDS: SODIUM FERRIC GLUCONAT-SUCROSE 125 MG in SODIUM CHLORIDE 0.9% 100 ML IVPB SCH (09:10)
[2022-10-10] MEDS: FUROSEMIDE 10 MG/ML 4 ML VIAL IV SCH ×2 (09:11→21:47)
[2022-10-10] MEDS: PANTOPRAZOLE 40 MG/10 ML VIAL IVP SCH ×2 (09:11→21:48)
--- NOTE | 2022-10-10 10:43 | XR ---
EXAMINATION TYPE: XR chest 2V DATE OF EXAM: 10/10/2022 10:32 AM COMPARISON: Chest radiographs from 10/07/2022 TECHNIQUE: XR chest 2V Frontal and lateral views of the chest. CLINICAL INDICATION:Female, 66 years old with history of F/U pneumonia; FINDINGS: Lungs/Pleura: Similar airspace opacities. No evidence of pneumothorax or pleural effusion. Pulmonary vascularity: Unremarkable. Heart/mediastinum: Cardiomediastinal silhouette is enlarged and stable. Musculoskeletal: No acute osseous pathology. IMPRESSION: Similar to mildly improved right basilar airspace opacities and small right pleural effusion.
--- NOTE | 2022-10-10 11:23 | P.PN ---
Subjective Progress Note Date: 10/10/22 Principal diagnosis: Shortness of breath, pneumonia. Pulmonary consult dated 10/07/2022. 66-year-old female brought into the emergency room on October 07, by EMS, for difficulty breathing/shortness of breath. The patient was recently in the hospital, and was discharged, and came back in, for progressive and worsening shortness of breath, cough, chest congestion, and generally not feeling well. The patient was seen, evaluated, and admitted with a diagnosis of right middle lobe, and right lower lobe pneumonia. She is seen in room 16 in the intensive care unit. She does have COPD from previous heavy tobacco use. She smoked for at least 40 years. Currently, she is on 4 L of oxygen. No IV fluids. She was placed on cefepime and vancomycin. We added Solu-Medrol, Pulmicort, and formoterol. Her CT angiogram was negative for pulmonary embolism. White count 6.9, hemoglobin 8.6, hematocrit 29.9, and platelet count 265,000. D-dimer was 2.55. Sodium 136, potassium 4.6, chlorides 98, CO2 30, BUN 21, and creatinine 1.07. The urine was suggestive of a possible urinary tract infection. Testing for influenza A, and influenza B, RSV, and coronavirus, were all negative. Chest x-rays consistent with a small right-sided effusion, and right lower lobe pneumonia. CT angiogram showed evidence of cardiomegaly, as well as right middle lobe and right lower lobe pneumonia, and a moderate right-sided pleural effusion. Progress note dated 10/08/2022. 66-year-old female seen yesterday in the emergency room, shortness of breath, cough, chest congestion, and possible pneumonia involving the right middle lobe and right lower lobe. Currently, the patient is in bed, resting, on 4 L. No respiratory distress. She states that she does not feel any better today than she did yesterday. White count 6.24, hemoglobin 7.7, hematocrit 28.6, and platelet count 282,000. Sodium 136, potassium 4.7, chlorides 98, CO2 29, BUN 16, and creatinine 1. Pro-calcitonin level is surprisingly low at 0.06. She does appear to have a urinary tract infection. She tested negative for influenza A, and B, as well as RSV, and coronavirus. She is currently on cefepime and Levaquin. Progress note dated 10/09/2022. 66-year-old female seen 2 days ago in the emergency department. She was admitted with pneumonia, and had symptoms of shortness of breath, cough, chest congestion. She seen today in room 473. She's feeling much better today. She's currently on 4 L of oxygen. She's not receiving any IV fluids. She is getting Levaquin. White count 14.2, hemoglobin 7.8, hematocrit 28.2, and platelet count 293,000. Sodium 135, potassium 4.7, chlorides 99, CO2 27, BUN 19, creatinine 1. Most recent pro-calcitonin is 0.06. Progress note dated 10/10/2022. 66-year-old female, who was admitted with a diagnosis of pneumonia. She remains on oxygen at 4 L. She is resting comfortably, and feeling better. She is seen today in room 473. White count is 10.1, hemoglobin 8.3, hematocrit 29.9, and platelet count was 177,000. Sodium 135, potassium 4.5, chlorides 100, CO2 29, B UN 22, and creatinine 0.96. Chest x-ray today, shows improvement in her right basilar airspace opacities. Objective - Vital Signs Vital signs: Vital Signs Temp 97.5 F L 10/10/22 08:00 Pulse 100 10/10/22 10:57 Resp 18 10/10/22 10:57 BP 116/71 10/10/22 08:00 Pulse Ox 94 L 10/10/22 08:15 FiO2 Intake & Output 10/09/22 10/10/22 10/10/22 18:59 06:59 18:59 Intake Total 800 Output Total 300 Balance 800 -300 Intake: Oral 800 Output: Urine 300 Other: Voiding Method Bedside Commode # Voids 4 - Exam No acute distress, oriented 3. The patient is much more awake today and alert, and not having much in way of respiratory issues. HEENT examination is grossly unremarkable. Neck supple. Full range of motion. No adenopathy thyromegaly or neck vein distention. Cardiovascular examination reveals regular rhythm rate. S1-S2 normal. No S3 or S4. No discernible murmur noted. Heart rate 92 bpm. Heart sounds are distant. Lungs reveal diffuse bilateral rhonchi. Expiratory wheezes are noted. No crackles. Breath sounds are improved. Breath sounds are diminished at the right lung base. 4 L saturation is 95 %. Abdomen soft bowel sounds are heard. No masses or tenderness. Extremities are intact. No cyanosis clubbing or edema. Skin is without rash or lesion. Neurologic examination is brief but nonfocal. - Labs CBC & Chem 7: 10/10/22 06:47 10/10/22 06:47 Labs: Abnormal Lab Results - Last 24 Hours (Table) 10/09/22 10/09/22 10/09/22 Range/Units 06:19 06:19 17:31 WBC 14.18 H 15.0 H (4.50-10.00) X 10*3/uL RBC 3.84 L (4.10-5.20) X 10*6/uL Hgb 7.8 L 8.9 L (12.0-15.0) g/dL Hct 28.2 L 31.3 L (37.2-46.3) % MCV 73.4 L 75.4 L (80.0-97.0) fL MCH 20.3 L 21.4 L (27.0-32.0) pg MCHC 27.7 L 28.3 L (32.0-37.0) g/dL RDW 23.8 H 20.9 H (11.5-14.5) % Absolute Nucleated RBC 0.05 H (0.00-0.00) X 10*3/uL NRBC/100 WBC Diff 0.4 H (0.0-0.0) /100 WBCS Sodium (137-145) mmol/L Anion Gap 9.30 L (10.00-18.00) mmol/L BUN (7-17) mg/dL Est GFR (CKD-EPI)NonAf 58.7 L (60.0-200.0) Glucose 207 H (70-110) mg/dL Albumin (3.5-5.0) g/dL 10/10/22 10/10/22 Range/Units 06:47 06:47 WBC (4.50-10.00) X 10*3/uL RBC (4.10-5.20) X 10*6/uL Hgb 8.3 L (12.0-15.0) g/dL Hct 29.9 L (37.2-46.3) % MCV 75.1 L (80.0-97.0) fL MCH 20.9 L (27.0-32.0) pg MCHC 27.8 L (32.0-37.0) g/dL RDW 20.9 H (11.5-14.5) % Absolute Nucleated RBC (0.00-0.00) X 10*3/uL NRBC/100 WBC Diff (0.0-0.0) /100 WBCS Sodium 135 L (137-145) mmol/L Anion Gap (10.00-18.00) mmol/L BUN 22 H (7-17) mg/dL Est GFR (CKD-EPI)NonAf (60.0-200.0) Glucose 282 H (70-110) mg/dL Albumin 3.4 L (3.5-5.0) g/dL Microbiology - Last 24 Hours (Table) 10/08/22 00:05 Gram Stain - Final Sputum Sputum Culture - Final Katalina albicans Assessment and Plan Assessment: Acute hypoxemic respiratory failure, secondary to right middle lobe and right lower lobe pneumonia, and acute COPD exacerbation. Previous history of heavy tobacco use. Possible urinary tract infection. History of atrial fibrillation. History of congestive heart failure. History of hyperlipidemia. History of diabetes mellitus. History of hypertension. Obesity. Multiple other medical problems and comorbidities. Plan: Plan dated 10/07/2022. The patient's currently on cefepime and vancomycin as antibiotics. The patient's getting Solu-Medrol 60 mg every 6 hours, and breathing treatments with albuterol and ipratropium bromide. In addition, we added formoterol, and budes onide. X-rays, labs, and medications are reviewed. We will continue to follow the patient and make recommendations along the way. A pro-calcitonin level is ordered. Legionella antigen is also ordered. Prognosis is guarded. Plan dated 10/08/2022. The patient is not feeling much better today than she did yesterday. She was initially on cefepime and vancomycin, and the vancomycin was discontinued, and she was placed on Levaquin. Her urinalysis is suspicious for urinary tract infection. Saturations are 98%. Labs, x-rays, and medications are reviewed. The patient continues on breathing treatments. We will continue to follow and make recommendations along the way. Plan dated 10/09/2022. 66-year-old female admitted with pneumonia. The patient's currently on 4 L. She feeling much better. Labs, x-rays, and medications are reviewed. She is much more awake and alert today than she was yesterday. So far microbiologic sampling is negative or pending. She continues on antibiotics. We will continue to follow make recommendations along the way. Prognosis is guarded. She's currently on Levaquin. Plan dated 10/10/2022. The patient appears to be doing much better. She remains on 4 L. Her saturations are in the mid 90s. Her chest x-rays improved. Labs, x-rays, and medications are all reviewed. She remains on Levaquin for her antibiotic. In addition, she is getting Solu-Medrol, and updrafts. We will continue to follow make recommendations along the way. Prognosis is certainly guarded. Time with Patient: Less than 30
[2022-10-10] MEDS ORDERED: DEXTROSE 50% SYRINGE 50 ML IVP PRN ×2 (12:31)
--- NOTE | 2022-10-10 16:36 | P.PN ---
Subjective Progress Note Date: 10/10/22 (delayed charting seen at 1045) Patient is a 66-year-old female with COPD and chronic hypoxic respiratory failure on 4 L nasal cannula, diastolic congestive heart failure, and atrial fibrillation on anticoagulation who presented to the ER secondary to diffuse body aches and shortness of breath. On arrival to the ER she was found to be cachectic With a respiratory rate of 26. Laboratory analysis demonstrated a hemoglobin of 8.5 (up from 7.8 on 09/30/22). BUN 21, creatinine 1.07. Uri nalysis was contaminated and patient without complaints of dysuria. Influenza A/B/RSV/COVID-19 testing were negative. Chest x-ray showed right lower lobe pneumonia with right pleural effusion. She underwent CT of the chest which showed cardiomegaly, moderate pulmonary infiltrates and atelectasis in the right middle and lower lobes with a moderate right pleural effusion and no evidence of pulmonary embolism. She was given a dose of vancomycin and cefepime in the ER for probable pneumonia. Arrangements were made for admission. Pulmonary saw the patient and agreed with antibiotics. Patient's calcitonin then came back at 0.06 and she was subsequently transitioned back to Levaquin as it appeared her outpatient antibiotics were effective and she just was awaiting resolution of ch anges on computed tomography scan. She did have a drop in Hgb and plan is for EGD and Colon on 10/11/21. Of note the patient was here on 09/30 and was transferred to [facility] to probable GI bleed. She reports that they did not do a scope there but she had a scope earlier this year with an upper and lower. They have recommended a pill endoscopy which she has not yet completed. She reports she was diagnosed with pneumonia there and was taking an antibiotic and felt better for a few days and then again felt worse. 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 She is here visiting her son for the holidays. Patient seen and examined at bedside. Doing better today, no chest pain, no hai rtness of breath, just started prep. Lost IV last night General: nontoxic, no distress, appears older than stated age, obese Derm: warm, dry Head: atraumatic, normocephalic, symmetric Eyes: EOMI, no lid lag, anicteric sclera Mouth: no lip lesion, mucus membranes moist Cardiovascular: S1S2 irreg and tachycardiac, no murmur, positive posterior tibial pulse bilateral, Lungs: Coarse breath sounds bilateral, no rhonchi, no rales , no accessory muscle use Abdominal: soft, nontender to palpation, no guarding, no appreciable organomegaly Ext: no gross muscle atrophy, no edema, no contractures Neuro: CN II-XI grossly intact, no focal neuro deficits Psych: Alert, oriented, appropriate affect Assessment/Plan: Pneumonia, failed outpatient treatment Chronic Respiratory with hypoxia, 4L Acute exacerbation of COPD, mild -Levaquin -Pulmonary recommendations appreciated - sputum culture pending, procalitonin negative , legionella urine antigen not collected - pulm hygiene - oral steroids, bronchdilators. Permanent A fib wwith RVR, not on AC at baseline due to HgB - cardizem - continue tele Anemia, Iron deficiency Possible GI bleed - s/p IV iron X 3 - Sugery recs appreciated, plan is for EGD and Colon on 10/11/22 - follow CBC - outpatient pill endoscopy recommended - protonix HTN, controlled - continue with losartan and metorpolol - imdur - follow BP Compensated diastolic CHF DVT prophylaxis: Heparin Discussed with: Patient, nursing Anticipated discharge date: after EGD/Colon Anticipated discharge place: home A total of 35 minutes was spent on the care of this complex patient more than 50% of the time was spent in counseling and care coordination. Active Medications Generic Name Dose Route Start Last Admin Trade Name Freq PRN Reason Stop Dose Admin Acetaminophen 650 mg 10/07/22 10:06 10/10/22 15:30 Acetaminophen Tab 325 Mg Tab PO 650 mg Q4HR PRN Administration Mild Pain or Fever > 100.5 Hydrocodone Bitart/Acetaminophen 1 each 10/07/22 10:06 10/07/22 12:20 Hydrocodone/Apap 5-325mg 1 Each Tab PO 1 each Q6HR PRN Administration Moderate to Severe Pain (4-10) Albuterol/Ipratropium 3 ml 10/07/22 05:52 Ipratropium-Albuterol 3 Ml Neb INHALATION RT-Q6H PRN Shortness Of Breath Albuterol/Ipratropium 3 ml 10/07/22 08:00 10/10/22 15:47 Ipratropium-Albuterol 3 Ml Neb INHALATION 3 ml RT-QID QING Administration Alprazolam 0.5 mg 10/07/22 05:52 10/10/22 02:50 Alprazolam 0.5 Mg Tab PO 0.5 mg DAILY PRN Administration Anxiety Aspirin 81 mg 10/07/22 09:00 10/10/22 08:06 Aspirin 81 Mg PO 81 mg DAILY QING Administration Atorvastatin Calcium 40 mg 10/07/22 09:00 10/10/22 08:06 Atorvastatin 40 Mg Tab PO 40 mg DAILY QING Administration Benzocaine/Menthol 1 each 10/07/22 09:50 Benzocaine/Menthol Lozeng 1 Each Lozenge MUCOUS MEM Q4HR PRN Sore Throat Budesonide 1 mg 10/07/22 20:00 10/10/22 08:15 Budesonide 1 Mg/2 Ml Nebu INHALATION Not Given RT-BID QING Buspirone HCl 10 mg 10/07/22 05:52 Buspirone Hcl 10 Mg Tab PO TID PRN Anxiety Cholecalciferol 25 mcg 10/10/22 09:00 10/10/22 08:06 Cholecalciferol 25 Mcg (1000 Iu) Tablet PO 25 mcg DAILY QING Administration Dapagliflozin 10 mg 10/10/22 09:00 10/10/22 08:06 Dapagliflozin Propanediol 10 Mg Tablet PO 10 mg DAILY QING Administration Dextrose/Water 25 ml 10/10/22 12:31 Dextrose 50% Syringe 50 Ml IVP PER PROTOCOL PRN Hypoglycemia Protocol Dextrose/Water 50 ml 10/10/22 12:31 Dextrose 50% Syringe 50 Ml IVP PER PROTOCOL PRN Hypoglycemia Protocol Dicyclomine HCl 10 mg 10/07/22 05:52 Dicyclomine 10 Mg Cap PO BID PRN adbom. cramping Diltiazem HCl 300 mg 10/09/22 11:00 10/10/22 08:06 Diltiazem Cd 300 Mg Cap.Er.24h PO 300 mg DAILY QING Administration Escitalopram Oxalate 10 mg 10/07/22 09:00 10/10/22 08:06 Escitalopram 10 Mg Tab PO 10 mg DAILY QING Administration Formoterol Fumarate 20 mcg 10/07/22 20:00 10/10/22 08:15 Formoterol Fumarate 20 Mcg/2 Ml Nebu INHALATION Not Given RT-BID QING Furosemide 40 mg 10/07/22 09:00 10/10/22 09:11 Furosemide 10 Mg/Ml 4 Ml Vial IV 40 mg Q12HR QING Administration Guaifenesin 600 mg 10/07/22 21:00 10/10/22 08:07 Guaifenesin 600 Mg Tablet.Er PO 600 mg Q12HR QING Administration Heparin Sodium (Porcine) 5,000 unit 10/07/22 10:15 10/10/22 16:03 Heparin Sodium,Porcine/Pf 5,000 Unit/0.5 Ml Syringe SQ 5,000 unit Q8HR QING Administration Ferric Sodium Gluconate 125 mg 110 mls @ 100 mls/hr 10/08/22 11:00 10/10/22 09:10 / Sodium Chloride IVPB 100 mls/hr DAILY QING Administration Insulin Aspart 0 unit 10/10/22 17:30 Insulin Aspart (Novolog) 100 Unit/Ml Vial SQ ACHS [facility] Protocol Insulin Detemir 15 unit 10/10/22 21:00 Insulin Detemir (Levemir) 100 Unit/Ml Syr 0.15 unit/kg (15 unit) SQ HS QING Isosorbide Mononitrate 30 mg 10/07/22 09:00 10/10/22 08:06 Isosorbide Mononitrate Er 30 Mg Tab.Er.24h PO 30 mg DAILY QING Administration Levofloxacin 750 mg 10/08/22 10:45 10/10/22 08:07 Levofloxacin 750 Mg Tab PO 750 mg DAILY QING Administration Protocol Losartan Potassium 25 mg 10/07/22 09:00 10/10/22 08:07 Losartan 25 Mg Tab PO 25 mg DAILY QING Administration Melatonin 3 mg 10/07/22 10:06 Melatonin 3 Mg Tablet PO HS PRN Insomnia Methylprednisolone Sodium Succinate 60 mg 10/07/22 12:00 10/10/22 15:15 Methylprednisolone Sod Succi 125 Mg/2 Ml Vial IV Not Given Q6HR QING Metoprolol Succinate 200 mg 10/07/22 09:00 10/10/22 08:07 Metoprolol Succinate (Er) 100 Mg Tab.Er.24h PO 200 mg DAILY QING Administration Mirtazapine 45 mg 10/07/22 21:00 10/09/22 20:52 Mirtazapine 45 Mg Tablet PO 45 mg HS QING Administration Naloxone HCl 0.2 mg 10/07/22 04:41 Naloxone 0.4 Mg/Ml 1 Ml Vial IV Q2M PRN Opioid Reversal Ondansetron HCl 4 mg 10/07/22 10:06 Ondansetron 4 Mg/2 Ml Vial IVP Q6HR PRN Nausea And Vomiting Pantoprazole Sodium 40 mg 10/07/22 21:00 10/10/22 09:11 Pantoprazole 40 Mg/10 Ml Vial IVP 40 mg BID QING Administration Spironolactone 25 mg 10/07/22 09:00 10/10/22 08:06 Spironolactone 25 Mg Tab PO 25 mg DAILY QING Administration Sucralfate 1 gm 10/09/22 12:30 10/10/22 12:23 Sucralfate 1 Gm Tab PO 1 gm ACHS QING Administration Witch Taryn 1 each 10/07/22 11:45 10/10/22 12:24 Witch Taryn 1 Each Med..Pad TOPICAL 1 each BID QING Administration Objective - Vital Signs Vital signs: Vital Signs Temp 97.4 F L 10/10/22 14:00 Pulse 84 10/10/22 15:57 Resp 18 10/10/22 15:57 BP 95/54 10/10/22 14:00 Pulse Ox 96 10/10/22 14:00 FiO2 Intake & Output 10/09/22 10/10/22 10/10/22 18:59 06:59 18:59 Intake Total 800 Output Total 300 Balance 800 -300 Intake: Oral 800 Output: Urine 300 Other: Voiding Method Bedside Commode # Voids 4 - Labs CBC & Chem 7: 10/10/22 06:47 10/10/22 06:47 Labs: Abnormal Lab Results - Last 24 Hours (Table) 10/09/22 10/10/22 10/10/22 Range/Units 17:31 06:47 06:47 WBC 15.0 H (3.8-10.6) k/uL Hgb 8.9 L 8.3 L (11.4-16.0) gm/dL Hct 31.3 L 29.9 L (34.0-46.0) % MCV 75.4 L 75.1 L (80.0-100.0) fL MCH 21.4 L 20.9 L (25.0-35.0) pg MCHC 28.3 L 27.8 L (31.0-37.0) g/dL RDW 20.9 H 20.9 H (11.5-15.5) % Sodium 135 L (137-145) mmol/L BUN 22 H (7-17) mg/dL Glucose 282 H (74-99) mg/dL Hemoglobin A1c (0.0-6.0) % Albumin 3.4 L (3.5-5.0) g/dL 10/10/22 Range/Units 06:47 WBC (3.8-10.6) k/uL Hgb (11.4-16.0) gm/dL Hct (34.0-46.0) % MCV (80.0-100.0) fL MCH (25.0-35.0) pg MCHC (31.0-37.0) g/dL RDW (11.5-15.5) % Sodium (137-145) mmol/L BUN (7-17) mg/dL Glucose (74-99) mg/dL Hemoglobin A1c 6.3 H (0.0-6.0) % Albumin (3.5-5.0) g/dL Microbiology - Last 24 Hours (Table) 10/08/22 00:05 Gram Stain - Final Sputum Sputum Culture - Final Katalina albicans
[2022-10-10 17:26] LABS: Glucose,Whole Blood 193 mg/dL (70-110)
[2022-10-10] MEDS: INSULIN ASPART (NovoLOG) 100 UNIT/ML VIAL SQ SCH ×2 (17:33→21:46)
[2022-10-10] MEDS ORDERED: INSULIN DETEMIR (LEVEMIR) 100 UNIT/ML SYR SQ SCH (21:00)
--- NOTE | 2022-10-10 21:26 | P.PN ---
Subjective Progress Note Date: 10/10/22 CHIEF COMPLAINT: GI bleed and anemia HISTORY OF PRESENT ILLNESS: The patient is a 66-year-old female with pre- existing history of GI bleed. Her Hgb has improved. "I am still concerned for bleeding," she reports. No abdominal pain. ROS: No reports of nausea and vomiting. No fevers or chills. Has pneumonia. PHYSICAL EXAM: VITAL SIGNS: Reviewed CONSTITUTIONAL: Well developed and in no acute distress. EYES: Conjuctivae without sclera icterus. Extraocular movements grossly intact. HEAD, EARS, NOSE, THROAT: Moist buccal mucosa. Head is atraumatic, normocephalic. Hears conversational speech. No nasal drainage. RESPIRATORY: Labored respirations and equal bilateral excursions. CARDIOVASCULAR: Palpable 2+ radial pulses. ABDOMEN:No peritonitis MUSCULOSKELETAL: No gross deformity of the lower extremities noted. No clubbing. No cyanosis. SKIN: Good skin turgor. Well perfused. NEUROLOGIC: Cranial nerves II through XII grossly intact. No focal or lateralizing signs. PSYCH: Appropriate affect. Alert and oriented to person, place and time. CLINICAL LABS: Reviewed. Hgb 7.7 to 7.8, now 8.9 to 8.3 ASSESSMENT: 1. GI bleed 2. Anemia 3. Vtach 4. Pneumonia PLAN: 1. Patient's Hgb did improve; however she reports intermittent episodes of bleeding. Recommend EGD and colon. 2. Bowel prep combination of Milk of magnesia, lactulose and Nulytely reviewed. 3. Patient agreeable to proceed with upper and lower endoscopy for persistent anemia and bleeding. Objective - Vital Signs Vital signs: Vital Signs Temp 97.6 F 10/10/22 19:54 Pulse 82 10/10/22 20:43 Resp 17 10/10/22 19:54 BP 107/68 10/10/22 19:54 Pulse Ox 96 10/10/22 19:54 FiO2 Intake & Output 10/10/22 10/10/22 10/11/22 06:59 18:59 06:59 Output Total 300 Balance -300 Output: Urine 300 Other: # Voids 4 - Labs CBC & Chem 7: 10/10/22 06:47 10/10/22 06:47 Labs: Abnormal Lab Results - Last 24 Hours (Table) 10/10/22 10/10/22 10/10/22 Range/Units 06:47 06:47 06:47 Hgb 8.3 L (11.4-16.0) gm/dL Hct 29.9 L (34.0-46.0) % MCV 75.1 L (80.0-100.0) fL MCH 20.9 L (25.0-35.0) pg MCHC 27.8 L (31.0-37.0) g/dL RDW 20.9 H (11.5-15.5) % Sodium 135 L (137-145) mmol/L BUN 22 H (7-17) mg/dL Glucose 282 H (74-99) mg/dL POC Glucose (mg/dL) (70-110) mg/dL Hemoglobin A1c 6.3 H (0.0-6.0) % Albumin 3.4 L (3.5-5.0) g/dL 10/10/22 Range/Units 17:24 Hgb (11.4-16.0) gm/dL Hct (34.0-46.0) % MCV (80.0-100.0) fL MCH (25.0-35.0) pg MCHC (31.0-37.0) g/dL RDW (11.5-15.5) % Sodium (137-145) mmol/L BUN (7-17) mg/dL Glucose (74-99) mg/dL POC Glucose (mg/dL) 193 H (70-110) mg/dL Hemoglobin A1c (0.0-6.0) % Albumin (3.5-5.0) g/dL Microbiology - Last 24 Hours (Table) 10/08/22 00:05 Gram Stain - Final Sputum Sputum Culture - Final Katalina albicans
[2022-10-10 21:35] LABS: Glucose,Whole Blood 241 mg/dL (70-110)
[2022-10-10] MEDS: MIRTAZAPINE 45 MG TABLET PO SCH (21:47)
[2022-10-11] MEDS: methylPREDNISolone SOD SUCCI 125 MG/2 ML VIAL IV SCH ×2 (05:33→12:54)
[2022-10-11 06:13] LABS: Glucose,Whole Blood 186 mg/dL (70-110)
[2022-10-11] MEDS: INSULIN ASPART (NovoLOG) 100 UNIT/ML VIAL SQ SCH ×2 (06:41→12:54)
[2022-10-11] MEDS: SUCRALFATE 1 GM TAB PO SCH ×2 (07:55→13:04)
[2022-10-11] MEDS: HEPARIN SODIUM,PORCINE/PF 5,000 UNIT/0.5 ML SYRINGE SQ SCH (07:55)
[2022-10-11] MEDS: ISOSORBIDE MONONITRATE ER 30 MG TAB.ER.24H PO SCH (08:00)
[2022-10-11] MEDS: DILTIAZEM CD 300 MG CAP.ER.24H PO SCH (08:00)
[2022-10-11] MEDS: METOPROLOL SUCCINATE (ER) 100 MG TAB.ER.24H PO SCH (08:00)
[2022-10-11 08:19] VITALS: TEMP 97.7
[2022-10-11] MEDS: FORMOTEROL FUMARATE 20 MCG/2 ML NEBU INHALATION SCH (08:57)
[2022-10-11] MEDS: IPRATROPIUM-ALBUTEROL 3 ML NEB INHALATION SCH ×2 (08:57→12:24)
[2022-10-11] MEDS: BUDESONIDE 1 MG/2 ML NEBU INHALATION SCH (08:57)
[2022-10-11] MEDS ORDERED: LIDOCAINE 2% INJ 20 MG/ML (2 ML VIAL) ONE (10:29)
[2022-10-11] MEDS ORDERED: PROPOFOL 10 MG/ML 20 ML VIAL IV ONE (10:29)
[2022-10-11] MEDS ORDERED: SODIUM CHLORIDE 0.9% 500 ML 500 ML IV ONE (10:33)
--- NOTE | 2022-10-11 10:44 | P.PCN ---
Date of Procedure: 10/11/22 Description of Procedure: PREOPERATIVE DIAGNOSIS: Acute gastrointestinal bleeding Anemia Congestive heart failure Atrial fibrillation POSTOPERATIVE DIAGNOSIS: Gastritis without active bleeding Presbyesophagus OPERATION: Esophagogastroduodenoscopy SURGEON: Beba Isbell MD ANESTHESIA: MAC. INDICATIONS: The patient is a 66-year-old female who presents with gastrointestinal bleeding and anemia. Benefits and risks of the procedure were described. Informed consent was obtained. DESCRIPTION: The patient was brought into the endoscopy suite and laid in the left lateral decubitus position. An Olympus gastroscope was passed along the posterior oropharynx down to the distal esophagus where the squamocolumnar junction was encountered at 40 cm from the incisors. The stomach was entered and no bile reflux was found. Additional findings are listed below. The first through third portion of the duodenum was examined and unremarkable. Retroflexion of the scope confirmed Hill grade 2 lower esophageal valve. The squamocolumnar junction demonstrated LA grade A erosive esophagitis. The stomach was desufflated. The patient tolerated the procedure well. FINDINGS: Squamocolumnar junction 40 cm from the incisors. Diaphragmatic hiatus at 40 cm. Hill grade 1 lower esophageal valve. LA grade A erosive esophagitis. Gastritis without active bleeding Moderate tertiary contractions of the esophagus consistent with presbyesophagus RECOMMENDATIONS: 1. Recommend dysphagia diet due to presbyesophagus 2. Upper endoscopy as needed
--- NOTE | 2022-10-11 11:01 | P.PCN ---
Date of Procedure: 10/11/22 Description of Procedure: PREOPERATIVE DIAGNOSIS: Gastrointestinal bleeding Anemia POSTOPERATIVE DIAGNOSIS: Sigmoid diverticulosis without active bleeding Grade 4 internal hemorrhoids without bleeding OPERATION: Colonoscopy to the cecum, ileocecal valve and appendiceal orifice SURGEON: Beba Isbell MD. ANESTHESIA: MAC. INDICATIONS: The patient is a 66-year-old female who presents with gastrointestinal bleeding and anemia. Benefits and risks were described and informed consent was obtained . DESCRIPTION OF PROCEDURE: The patient had undergone milk of magnesia, lactulose and Golytely prep 2 L. The patient had been brought into the operating room and laid in the left lateral decubitus position. After adequate intravenous sedation, the rectum was examined with 2% lidocaine jelly. Large nonreducible grade 4 internal hemorrhoids with edema and was found. An Olympus colonoscope was gently advanced to the cecum with clear visualization of the ileocecal valve including appendiceal orifice. The prep was fair with retained stool of the ascending colon. Moderate sigmoid diverticulosis without active bleeding. No active colonic bleeding was found. No intraluminal masses were identified within the colon. No large colonic polyps were found; however limited by stool. No evidenc e of focal colitis was found. Retroflexion of the scope demonstrated grade 4 internal hemorrhoids with edema and no active bleeding. The colon was desufflated. The patient had tolerated the procedure well. Withdrawal time was over 6 minutes. FINDINGS: Aronchick preparation quality scale 3 (1-5) Internal hemorrhoids, grade 4 with edema without bleeding No thrombosed hemorrhoid identified. No large adenomatous polyps. No focal colitis. Moderate sigmoid diverticulosis without active bleeding RECOMMENDATIONS: 1. Diet as tolerated 2. Recommend 25-30 g of fiber for sigmoid diverticulosis Plan - Discharge Summary Discharge Rx Participant: Yes New Discharge Prescriptions: No Action Pantoprazole Sodium [Protonix] 40 mg PO BID Albuterol Sulfate [Ventolin HFA] 2 puff INHALATION RT-Q6H PRN PRN Reason: Shortness Of Breath busPIRone HCl [Buspar] 10 mg PO TID PRN PRN Reason: Anxiety Biotin 5 mg PO DAILY Potassium Chloride [Klor-Con M10] 10 meq PO BID Metoprolol Succinate [Toprol XL] 200 mg PO DAILY Isosorbide Mononitrate ER [Imdur] 30 mg PO DAILY Escitalopram [Lexapro] 10 mg PO DAILY Dicyclomine [Bentyl] 10 mg PO BID PRN PRN Reason: adbom. cramping Dapagliflozin Propanediol [Farxiga] 10 mg PO DAILY Cholecalciferol [Vitamin D3 (25 Mcg = 1000 Iu)] 25 mcg PO DAILY Bumetanide [BUMEX] 2 mg PO BID ALPRAZolam [Xanax] 0.5 mg PO DAILY PRN PRN Reason: Anxiety Sucralfate [Carafate] 1 gm PO ACHS Zinc Gluconate [Zinc] 50 mg PO DAILY Magnesium 250 mg PO DAILY Cyanocobalamin [Vitamin B-12] 500 mcg PO DAILY Aspirin EC [Ecotrin Low Dose] 81 mg PO DAILY Mirtazapine [Remeron] 45 mg PO HS Losartan Potassium [Cozaar] 25 mg PO DAILY Ipratropium-Albuterol Nebulize [Duoneb 0.5 mg-3 mg/3 ml Soln] 3 ml INHALATION RT-Q6H PRN PRN Reason: Shortness Of Breath Clopidogrel [Plavix] 75 mg PO DAILY Spironolactone [Aldactone] 25 mg PO DAILY Rosuvastatin [Crestor] 20 mg PO DAILY Fluticasone/Umeclidin/Vilanter [Trelegy Ellipta 100-62.5-25] 1 puff INHALATION RT-DAILY dilTIAZem HCL [Tiadylt ER] 300 mg PO DAILY Levofloxacin [Levaquin] 750 mg PO DAILY Discharge Medication List Albuterol Sulfate [Ventolin HFA] 2 puff INHALATION RT-Q6H PRN 09/30/20 [History] Pantoprazole Sodium [Protonix] 40 mg PO BID 09/30/20 [History] busPIRone HCl [Buspar] 10 mg PO TID PRN 09/30/20 [History] ALPRAZolam [Xanax] 0.5 mg PO DAILY PRN 09/30/22 [History] Aspirin EC [Ecotrin Low Dose] 81 mg PO DAILY 09/30/22 [History] Biotin 5 mg PO DAILY 09/30/22 [History] Bumetanide [BUMEX] 2 mg PO BID 09/30/22 [History] Cholecalciferol [Vitamin D3 (25 Mcg = 1000 Iu)] 25 mcg PO DAILY 09/30/22 [History] Clopidogrel [Plavix] 75 mg PO DAILY 09/30/22 [History] Cyanocobalamin [Vitamin B-12] 500 mcg PO DAILY 09/30/22 [History] Dapagliflozin Propanediol [Farxiga] 10 mg PO DAILY 09/30/22 [History] Dicyclomine [Bentyl] 10 mg PO BID PRN 09/30/22 [History] Escitalopram [Lexapro] 10 mg PO DAILY 09/30/22 [History] Fluticasone/Umeclidin/Vilanter [Trelegy Ellipta 100-62.5-25] 1 puff INHALATION RT-DAILY 09/30/22 [History] Ipratropium-Albuterol Nebulize [Duoneb 0.5 mg-3 mg/3 ml Soln] 3 ml INHALATION RT-Q6H PRN 09/30/22 [History] Isosorbide Mononitrate ER [Imdur] 30 mg PO DAILY 09/30/22 [History] Losartan Potassium [Cozaar] 25 mg PO DAILY 09/30/22 [History] Magnesium 250 mg PO DAILY 09/30/22 [History] Metoprolol Succinate [Toprol XL] 200 mg PO DAILY 09/30/22 [History] Mirtazapine [Remeron] 45 mg PO HS 09/30/22 [History] Potassium Chloride [Klor-Con M10] 10 meq PO BID 09/30/22 [History] Rosuvastatin [Crestor] 20 mg PO DAILY 09/30/22 [History] Spironolactone [Aldactone] 25 mg PO DAILY 09/30/22 [History] Sucralfate [Carafate] 1 gm PO ACHS 09/30/22 [History] Zinc Gluconate [Zinc] 50 mg PO DAILY 09/30/22 [History] Levofloxacin [Levaquin] 750 mg PO DAILY 10/07/22 [History] dilTIAZem HCL [Tiadylt ER] 300 mg PO DAILY 10/07/22 [History] Follow up Appointment(s)/Referral(s): None,Stated [Primary Care Provider] - 1-2 days
[2022-10-11 12:47] LABS: Glucose,Whole Blood 181 mg/dL (70-110)
[2022-10-11] MEDS: ESCITALOPRAM 10 MG TAB PO SCH (12:53)
[2022-10-11] MEDS: guaiFENesin 600 MG TABLET.ER PO SCH (12:53)
[2022-10-11] MEDS: LOSARTAN 25 MG TAB PO SCH (12:53)
[2022-10-11] MEDS: DAPAGLIFLOZIN PROPANEDIOL 10 MG TABLET PO SCH (12:53)
[2022-10-11] MEDS: ATORVASTATIN 40 MG TAB PO SCH (12:53)
[2022-10-11] MEDS: ASPIRIN 81 MG PO SCH (12:53)
[2022-10-11] MEDS: CHOLECALCIFEROL 25 MCG (1000 IU) TABLET PO SCH (12:53)
[2022-10-11] MEDS: FUROSEMIDE 10 MG/ML 4 ML VIAL IV SCH (12:54)
[2022-10-11] MEDS: PANTOPRAZOLE 40 MG/10 ML VIAL IVP SCH (12:54)
[2022-10-11] MEDS: SPIRONOLACTONE 25 MG TAB PO SCH (12:54)
[2022-10-11] MEDS: LEVOFLOXACIN 750 MG TAB PO SCH (12:54)
--- NOTE | 2022-10-11 14:35 | P.PN ---
Subjective Progress Note Date: 10/11/22 66-year-old female brought into the emergency room on October 07, by EMS, for difficulty breathing/shortness of breath. The patient was recently in the hospital, and was discharged, and came back in, for progressive and worsening shortness of breath, cough, chest congestion, and generally not feeling well. The patient was seen, evaluated, and admitted with a diagnosis of right middle lobe, and right lower lobe pneumonia. She is seen in room 16 in the intensive care unit. She does have COPD from previous heavy tobacco use. She smoked for at least 40 years. Currently, she is on 4 L of oxygen. No IV fluids. She was placed on cefepime and vancomycin. We added Solu-Medrol, Pulmicort, and form oterol. Her CT angiogram was negative for pulmonary embolism. White count 6.9, hemoglobin 8.6, hematocrit 29.9, and platelet count 265,000. D-dimer was 2.55. Sodium 136, potassium 4.6, chlorides 98, CO2 30, BUN 21, and creatinine 1.07. The urine was suggestive of a possible urinary tract infection. Testing for influenza A, and influenza B, RSV, and coronavirus, were all negative. Chest x-rays consistent with a small right-sided effusion, and right lower lobe pneumonia. CT angiogram showed evidence of cardiomegaly, as well as right middle lobe and right lower lobe pneumonia, and a moderate right-sided pleural effusion. Progress note dated 10/08/2022. 66-year-old female seen yesterday in the emergency room, shortness of breath, cough, chest congestion, and possible pneumonia involving the right middle lobe and right lower lobe. Currently, the patient is in bed, resting, on 4 L. No respiratory distress. She states that she does not feel any better today than she did yesterday. White count 6.24, hemoglobin 7.7, hematocrit 28.6, and platelet count 282,000. Sodium 136, potassium 4.7, chlorides 98, CO2 29, BUN 16, and creatinine 1. Pro-calcitonin level is surprisingly low at 0.06. She does appear to have a urinary tract infection. She tested negative for influenza A, and B, as well as RSV, and coronavirus. She is currently on cefepime and Levaquin. Progress note dated 10/09/2022. 66-year-old female seen 2 days ago in the emergency department. She was admitted with pneumonia, and had symptoms of shortness of breath, cough, chest congestion. She seen today in room 473. She's feeling much better today. She's currently on 4 L of oxygen. She's not receiving any IV fluids. She is getting Levaquin. White count 14.2, hemoglobin 7.8, hematocrit 28.2, and renny telet count 293,000. Sodium 135, potassium 4.7, chlorides 99, CO2 27, BUN 19, creatinine 1. Most recent pro-calcitonin is 0.06. Progress note dated 10/10/2022. 66-year-old female, who was admitted with a diagnosis of pneumonia. She remains on oxygen at 4 L. She is resting comfortably, and feeling better. She is seen today in room 473. White count is 10.1, hemoglobin 8.3, hematocrit 29.9, and platelet count was 177,000. Sodium 135, potassium 4.5, chlorides 100, CO2 29, BUN 22, and creatinine 0.96. Chest x-ray today, shows improvement in her right basilar airspace opacities. 10/11/2022 This a pleasant 66-year-old female patient. She is awake and alert. Maintaining O2 saturations in the 90s on 4 L/m per nasal cannula. Culture positive for Katalina only. Urine culture revealed no growth. Blood sugar 181. She's been maintained on DuoNeb inhalations Pulmicort and Perforomist in halations, IV Solu-Medrol. Remained on IV diuretics. Heparin for DVT prophylaxis. She did undergo EGD/colonoscopy today. She was found to have gastritis without active bleeding, presbyesophagus, sigmoid diverticulosis without active bleeding, grade 4 internal hemorrhoids without bleeding. Objective - Vital Signs Vital signs: Vital Signs Temp 97.7 F 10/11/22 08:00 Pulse 96 10/11/22 12:37 Resp 21 10/11/22 08:00 BP 125/73 10/11/22 08:00 Pulse Ox 94 L 10/11/22 08:00 FiO2 Intake & Output 10/10/22 10/11/22 10/11/22 18:59 06:59 18:59 Intake Total 200 Balance 200 Intake: IV 200 Other: Voiding Method Bedside Commode Bedside Commode # Voids 4 4 - Exam No acute distress, oriented 3. The patient is much more awake today and alert, and not having much in way of respiratory issues. HEENT examination is grossly unremarkable. Neck supple. Full range of motion. No adenopathy thyromegaly or neck vein d istention. Cardiovascular examination reveals regular rhythm rate. S1-S2 normal. No S3 or S4. No discernible murmur noted. Heart sounds are distant. Lungs reveal diffuse bilateral rhonchi. Expiratory wheezes are noted. No crackles. Breath sounds are improved. Breath sounds are diminished at the right lung base. . Abdomen soft bowel sounds are heard. No masses or tenderness. Extremities are intact. No cyanosis clubbing or edema. Skin is without rash or lesion. Neurologic examination is brief but nonfocal. - Labs CBC & Chem 7: 10/10/22 06:47 10/10/22 06:47 Labs: Abnormal Lab Results - Last 24 Hours (Table) 10/10/22 10/10/22 10/10/22 Range/Units 06:47 17:24 21:33 POC Glucose (mg/dL) 193 H 241 H (70-110) mg/dL Hemoglobin A1c 6.3 H (0.0-6.0) % 10/11/22 10/11/22 Range/Units 06:11 12:46 POC Glucose (mg/dL) 186 H 181 H (70-110) mg/dL Hemoglobin A1c (0.0-6.0) % Assessment and Plan Assessment: Acute hypoxemic respiratory failure, secondary to right middle lobe and right lower lobe pneumonia, and acute COPD exacerbation. Anemia, she did undergo EGD/colonoscopy today 10/11/2022. She was found to have gastritis without active bleeding, presbyesophagus, sigmoid diverticulosis without active bleeding, grade 4 internal hemorrhoids without bleeding. Previous history of heavy tobacco use. Possible urinary tract infection. History of atrial fibrillation. History of congestive heart failure. History of hyperlipidemia. History of diabetes mellitus. History of hypertension. Obesity. Multiple other medical problems and comorbidities. Plan: The patient was seen and evaluated Currently stable from the pulmonary standpoint EGD/colonoscopy review Upon discharge she could continue her home pulmonary medications including Trelegy, DuoNeb inhalations Complete a prednisone taper Complete course of antibiotics Follow-up in the office in 1 week I have personally seen and examined the patient, performed the documentation and the assessment and plan as written. Number of minutes spent on the visit: 10.
--- NOTE | 2022-10-11 15:03 | P.DS ---
Providers Date of admission: 10/07/22 04:41 Expected date of discharge: 10/11/22 Attending physician: Germán Mccoy MD Consults: 10/07/22 06:06 Consult Physician Routine Consulting Provider: Beba Isbell Consult Reason/Comments: GI bleed Do you want consulting provider notified?: Yes 10/07/22 09:51 Consult Physician Routine Consulting Provider: Jono Gomez Consult Reason/Comments: PNeumonia Do you want consulting provider notified?: Yes Primary care physician: Stated None Hospital Course: Patient is a 66-year-old female with COPD and chronic hypoxic respiratory failure on 4 L nasal cannula, diastolic congestive heart failure, and atrial fibrillation on anticoagulation who presented to the ER secondary to diffuse body aches and shortness of breath. On arrival to the ER she was found to be cachectic With a respiratory rate of 26. Laboratory analysis demonstrated a hemoglobin of 8.5 (up from 7.8 on 09/30/22). BUN 21, creatinine 1.07. Urinalysis was contaminated and patient without complaints of dysuria. Influenza A/B/RSV/COVID-19 testing were negative. Chest x-ray showed right lower lobe pneumonia with right pleural effusion. She underwent CT of the chest which showed cardiomegaly, moderate pulmonary infiltrates and atelectasis in the right middle and lower lobes with a moderate right pleural effusion and no evidence of pulmonary embolism. She was given a dose of vancomycin and cefepime in the ER for probable pneumonia. Arrangements were made for admission. Pulmonary saw the patient and agreed with antibiotics. Patient's calcitonin then came back at 0.06 and she was subsequently transitioned back to Levaquin as it appeared her outpatient antibiotics were effective and she just was awaiting resolution of changes on computed tomography scan. She did have a drop in Hgb and plan is for EGD and Colonoscopy on 10/11/21. Of note the patient was here on 09/30 and was transferred to [facility] secondary to probable GI bleed. She reports that they did not do a scope there but she had a scope earlier this year with an upper and lower. They have recommended a pill endoscopy which she has not yet completed. She reports she was diagnosed with pneumonia there and was taking an antibiotic and felt better for a few days and then again felt worse. 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 She is here visiting her son for the holidays. Patient underwent colonoscopy which showed internal hemorrhoids, diverticulosis. Her hemoglobin remained stable. Patient was treated with Levaquin for concerns of community acquired pneumonia. Her pro-calcitonin was negative. Sputum culture showed Katalina. She was also given DuoNeb scheduled and as needed along with Solu-Medrol, Pulmicort and Mucinex. Pulmonology followed the patient during her hospitalization. Patient was seen and examined. No acute events overnight. Patient currently on 4 L. She reports improvement in her breathing. States that she is back to baseline. Requesting to be discharged home. Pertinent studies include chest x-ray, chest CTA Pertinent procedures include colonoscopy General: nontoxic, no distress, appears older than stated age, obese Derm: warm, dry Head: atraumatic, normocephalic, symmetric Eyes: EOMI, no lid lag, anicteric sclera Mouth: no lip lesion, mucus membranes moist Cardiovascular: S1S2 irreg and tachycardiac, no murmur Lungs: Decreased breath sounds bilateral, no rhonchi, no rales , no accessory muscle use Abdominal: soft, nontender to palpation, no guarding, no appreciable organomegaly Ext: no gross muscle atrophy, no edema, no contractures Neuro: no focal neuro deficits Psych: Alert, oriented, appropriate affect Discharge diagnosis: #Pneumonia, failed outpatient treatment #Chronic Respiratory with hypoxia, 4L #Acute exacerbation of COPD, mild #Permanent A fib with RVR, not on AC at baseline due to HgB #Anemia, Iron deficiency #Possible GI bleed #HTN, controlled #Compensated diastolic CHF This complex discharge took 35 minutes to complete. Patient be discharged home with the following instructions: Diet: Cardiac FU PCP within 1-2 days of DC FU with Pulmonology within 1 week of DC FU with Surgery within 1 week of DC Take all medications as advised Patient Condition at Discharge: Stable Plan - Discharge Summary Discharge Rx Participant: Yes New Discharge Prescriptions: New RX: Levofloxacin [Levaquin] 750 mg PO DAILY #4 tab RX: witch [place] [Tucks Medicated Pads] 1 each TOPICAL BID pad methylPREDNISolone Dose Pack [Medrol Dose Pack] 4 mg PO DIRECTED #1 packet Continue RX: Pantoprazole Sodium [Protonix] 40 mg PO BID RX: Albuterol Sulfate [Ventolin HFA] 2 puff INHALATION RT-Q6H PRN PRN Reason: Shortness Of Breath RX: busPIRone HCl [Buspar] 10 mg PO TID PRN PRN Reason: Anxiety RX: Biotin 5 mg PO DAILY RX: Potassium Chloride [Klor-Con M10] 10 meq PO BID RX: Metoprolol Succinate [Toprol XL] 200 mg PO DAILY RX: Isosorbide Mononitrate ER [Imdur] 30 mg PO DAILY RX: Escitalopram [Lexapro] 10 mg PO DAILY RX: Dicyclomine [Bentyl] 10 mg PO BID PRN PRN Reason: adbom. cramping RX: Dapagliflozin Propanediol [Farxiga] 10 mg PO DAILY RX: Cholecalciferol [Vitamin D3 (25 Mcg = 1000 Iu)] 25 mcg PO DAILY RX: Bumetanide [BUMEX] 2 mg PO BID RX: Sucralfate [Carafate] 1 gm PO ACHS RX: Zinc Gluconate [Zinc] 50 mg PO DAILY RX: Magnesium 250 mg PO DAILY RX: Cyanocobalamin [Vitamin B-12] 500 mcg PO DAILY RX: Aspirin EC [Ecotrin Low Dose] 81 mg PO DAILY RX: Mirtazapine [Remeron] 45 mg PO HS RX: Losartan Potassium [Cozaar] 25 mg PO DAILY RX: Ipratropium-Albuterol Nebulize [Duoneb 0.5 mg-3 mg/3 ml Soln] 3 ml INHALATION RT-Q6H PRN PRN Reason: Shortness Of Breath RX: Clopidogrel [Plavix] 75 mg PO DAILY RX: Spironolactone [Aldactone] 25 mg PO DAILY RX: Rosuvastatin [Crestor] 20 mg PO DAILY RX: Fluticasone/Umeclidin/Vilanter [Trelegy Ellipta 100-62.5-25] 1 puff INHALATION RT-DAILY RX: dilTIAZem HCL [Tiadylt ER] 300 mg PO DAILY RX: ALPRAZolam [Xanax] 0.5 mg PO DAILY PRN #3 tab PRN Reason: Anxiety Discontinued Levofloxacin [Levaquin] 750 mg PO DAILY Discharge Medication List RX: Albuterol Sulfate [Ventolin HFA] 2 puff INHALATION RT-Q6H PRN 09/30/20 [History] RX: Pantoprazole Sodium [Protonix] 40 mg PO BID 09/30/20 [History] RX: busPIRone HCl [Buspar] 10 mg PO TID PRN 09/30/20 [History] RX: Aspirin EC [Ecotrin Low Dose] 81 mg PO DAILY 09/30/22 [History] RX: Biotin 5 mg PO DAILY 09/30/22 [History] RX: Bumetanide [BUMEX] 2 mg PO BID 09/30/22 [History] RX: Cholecalciferol [Vitamin D3 (25 Mcg = 1000 Iu)] 25 mcg PO DAILY 09/30/22 [History] RX: Clopidogrel [Plavix] 75 mg PO DAILY 09/30/22 [History] RX: Cyanocobalamin [Vitamin B-12] 500 mcg PO DAILY 09/30/22 [History] RX: Dapagliflozin Propanediol [Farxiga] 10 mg PO DAILY 09/30/22 [History] RX: Dicyclomine [Bentyl] 10 mg PO BID PRN 09/30/22 [History] RX: Escitalopram [Lexapro] 10 mg PO DAILY 09/30/22 [History] RX: Fluticasone/Umeclidin/Vilanter [Trelegy Ellipta 100-62.5-25] 1 puff INHALATION RT-DAILY 09/30/22 [History] RX: Ipratropium-Albuterol Nebulize [Duoneb 0.5 mg-3 mg/3 ml Soln] 3 ml INHALATION RT-Q6H PRN 09/30/22 [History] RX: Isosorbide Mononitrate ER [Imdur] 30 mg PO DAILY 09/30/22 [History] RX: Losartan Potassium [Cozaar] 25 mg PO DAILY 09/30/22 [History] RX: Magnesium 250 mg PO DAILY 09/30/22 [History] RX: Metoprolol Succinate [Toprol XL] 200 mg PO DAILY 09/30/22 [History] RX: Mirtazapine [Remeron] 45 mg PO HS 09/30/22 [History] RX: Potassium Chloride [Klor-Con M10] 10 meq PO BID 09/30/22 [History] RX: Rosuvastatin [Crestor] 20 mg PO DAILY 09/30/22 [History] RX: Spironolactone [Aldactone] 25 mg PO DAILY 09/30/22 [History] RX: Sucralfate [Carafate] 1 gm PO ACHS 09/30/22 [History] RX: Zinc Gluconate [Zinc] 50 mg PO DAILY 09/30/22 [History] RX: dilTIAZem HCL [Tiadylt ER] 300 mg PO DAILY 10/07/22 [History] RX: ALPRAZolam [Xanax] 0.5 mg PO DAILY PRN #3 tab 10/11/22 [Rx] RX: Levofloxacin [Levaquin] 750 mg PO DAILY #4 tab 10/11/22 [Rx] RX: witch [place] [Tucks Medicated Pads] 1 each TOPICAL BID pad 10/11/22 [Rx] methylPREDNISolone Dose Pack [Medrol Dose Pack] 4 mg PO DIRECTED #1 packet 10/11/22 [Rx] Follow up Appointment(s)/Referral(s): Beba Isbell MD [STAFF PHYSICIAN] - 1 Week (Office is closed at time of discharge. Please call for a appointment.) Jono Gomez DO [Doctor of Osteopathic Medicine] - 1 Week (Office is closed at time of discharge. Please call for a appointment.) None,Stated [Primary Care Provider] - 1-2 days Patient Instructions/Handouts: Pneumonia (DC) Activity/Diet/Wound Care/Special Instructions: Diet: Cardiac FU PCP within 1-2 days of DC FU with Pulmonology within 1 week of DC FU with Surgery within 1 week of DC Take all medications as advised Discharge Disposition: HOME SELF-CARE
[2022-10-11 15:45] VITALS: BP 108/58; PULSE 88; RESP 18
== END 2022-10-11 15:17 | disposition home or self-care (01) | DRG 193 ==
LOC: EC 00:52 → 4SSUR 04:41
PROVIDERS: ADMIT Internal Medicine; ATTEND Internal Medicine
PROC: 3E0F7SF Introduction of Other Gas into Respiratory Tract, Via Natural or Artificial Opening (ICD-10-PCS; 2022-10-07)
PROC: 0DJD8ZZ Inspection of Lower Intestinal Tract, Via Natural or Artificial Opening Endoscopic (ICD-10-PCS; principal; 2022-10-11 07:30)
PROC: 0DJ08ZZ Inspection of Upper Intestinal Tract, Via Natural or Artificial Opening Endoscopic (ICD-10-PCS; 2022-10-11 07:30)
DX: J18.9 Pneumonia, unspecified organism (principal); I50.33 Acute on chronic diastolic (congestive) heart failure; J96.21 Acute and chronic respiratory failure with hypoxia; K57.31 Diverticulosis of large intestine without perforation or abscess with bleeding; J44.0 Chronic obstructive pulmonary disease with (acute) lower respiratory infection; I48.21 Permanent atrial fibrillation; J44.1 Chronic obstructive pulmonary disease with (acute) exacerbation; J98.11 Atelectasis; I47.20 Ventricular tachycardia, unspecified; D62 Acute posthemorrhagic anemia; R64 Cachexia; K20.90 Esophagitis, unspecified without bleeding; K29.70 Gastritis, unspecified, without bleeding; D50.9 Iron deficiency anemia, unspecified; Z68.36 Body mass index [BMI] 36.0-36.9, adult; E78.5 Hyperlipidemia, unspecified; F41.9 Anxiety disorder, unspecified; K64.8 Other hemorrhoids; G47.00 Insomnia, unspecified; I25.10 Atherosclerotic heart disease of native coronary artery without angina pectoris; I10 Essential (primary) hypertension; I11.0 Hypertensive heart disease with heart failure; F10.20 Alcohol dependence, uncomplicated; E66.9 Obesity, unspecified; K22.89 Other specified disease of esophagus; K44.9 Diaphragmatic hernia without obstruction or gangrene; Z88.1 Allergy status to other antibiotic agents; Z88.5 Allergy status to narcotic agent; Z88.8 Allergy status to other drugs, medicaments and biological substances; Z20.822 Contact with and (suspected) exposure to COVID-19; Z87.891 Personal history of nicotine dependence; K64.3 Fourth degree hemorrhoids; Y95 Nosocomial condition; Z53.20 Procedure and treatment not carried out because of patient's decision for unspecified reasons; Z79.01 Long term (current) use of anticoagulants; Z79.02 Long term (current) use of antithrombotics/antiplatelets; Z79.82 Long term (current) use of aspirin; Z79.84 Long term (current) use of oral hypoglycemic drugs; Z79.899 Other long term (current) drug therapy; Z87.01 Personal history of pneumonia (recurrent); Z95.818 Presence of other cardiac implants and grafts
CPT/HCPCS: 36415; 43235; 45378; 71046; 71275; 80048; 80053; 81001; 82728; 83036; 83540; 83550; 83735; 83880; 84100; 84145; 84484; 85025; 85027; 85379; 85610; 85730; 87070; 87086; 87205; 87636; 93005; 94640; 94760; 96365; 96366; 96367; 96375; 99285